=== PATIENT | male | born 1930 | race Caucasian/White ===

== ENCOUNTER 2016-12-26 13:22 | Inpatient (IN) | payer OTHER, MEDICARE ==
[~2016-12-26] VITALS: Ht 167.6 cm; Wt 100.9 kg
[~2016-12-26 13:22] MED LIST: ASPI81TA17 PO; LOVA40TA PO; TRAM50 PO
[2016-12-26 13:44] VITALS: BP 199/84; PULSE 62; PULSE 72; RESP 18; TEMP 98; O2SAT 67; O2SAT 99
[2016-12-26] MEDS ORDERED: SODIUM CHLOR 0.9% 1000 ML INJ 1,000 ML IV ONE (13:58)
[2016-12-26] MEDS ORDERED: SODIUM CHLOR 0.9% 1000 ML INJ 1,000 ML IV SCH ×2 (14:00→15:24)
--- NOTE | 2016-12-26 14:09 | PD ---
HPI Chief Complaint: Neuro Symptoms/ Deficits Time Seen by Provider: 13:42 Travel History International Travel<30 days: No Contact w/Intl Traveler<30days: No Traveled to known affect area: No History of Present Illness HPI 86-year-old male complains of partial vision loss. Patient states that he was reading some articles and started having sudden onset of vision loss on the right side the visual field. Patient states that he started having sweating on the forehead. Patient denies any headache. Patient denies any eye pain. Patient denies any neck pain. Patient denies any chest pain or shortness of breath. Patient denies abdominal pain. Patient denies any focal weakness or numbness of extremity. Patient denies any history of TIA or CVA. Patient has history of hyperlipidemia. Patient also has history of thrombocytosis and chronic myeloproliferative disorder. Patient on aspirin 81 mg daily. Patient states that he took his aspirin today. 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 Patient States that he had left-sided facial weakness which lasted about 6 weeks and subsequently only left eyelid weakness since then. PFSH Past Medical History Hx Anticoagulant Therapy: Yes (BABY ASA DAILY) Cancer: No Cardiovascular Problems: Yes (HTN, CHOL) High Cholesterol: Yes Diabetes: No Diminished Hearing: No Endocrine: No Gastrointestinal Disorders: Yes (UPSET) Genitourinary: No Hepatitis: No Hiatal Hernia: No Hypertension: Yes Immune Disorder: No Musculoskeletal: No Neurologic: Yes (MOSES'S PALSY) Psychiatric: No Reproductive: No Respiratory: No Immunizations Current: No Thyroid Disease: No Past Surgical History Other Surgery: Yes (BACK 1967) Social History Alcohol Use: Yes (2/SCOTCH/day) Tobacco Use: No Substance Use: No Allergies-Medications (Allergen,Severity, Reaction): Coded Allergies: No Known Allergies (Unverified , 12/26/16) Reported Meds & Prescriptions Reported Meds & Active Scripts Active Ultram (Tramadol HCl) 50 Mg Tab 50 Mg PO Q6 PRN Reported Lovastatin 40 Mg Tab 40 Mg PO HS Aspirin EC Low Dose (Aspirin) 81 Mg Tab 81 Mg PO DAILY Review of Systems General / Constitutional: No: Fever Eyes: Positive: Visual changes HENT: No: Headaches Cardiovascular: No: Chest Pain or Discomfort Respiratory: No: Shortness of Breath Gastrointestinal: No: Abdominal Pain Genitourinary: No: Dysuria Musculoskeletal: No: Pain Skin: No Rash Neurologic: No: Weakness Psychiatric: No: Depression Endocrine: No: Polydipsia Hematologic/Lymphatic: No: Easy Bruising Physical Exam Narrative GENERAL: Well-nourished, well-developed patient. SKIN: Focused skin assessment warm/dry. HEAD: Normocephalic. EYES: No scleral icterus. No injection or drainage. Pupils 2 mm equal sluggish reactive. NECK: Supple, trachea midline. No JVD or lymphadenopathy. CARDIOVASCULAR: Regular rate and rhythm without murmurs, gallops, or rubs. RESPIRATORY: Breath sounds equal bilaterally. No accessory muscle use. GASTROINTESTINAL: Abdomen soft, non-tender, nondistended. MUSCULOSKELETAL: No cyanosis, or edema. BACK: Nontender without obvious deformity. No CVA tenderness. Neurologic exam: Patient is awake and alert oriented 3. Patient has homonymous hemianopsia with defect on the right visual field bilaterally. Patient moves all extremity well. No obvious focal neurological deficit. Data Data Last Documented VS Vital Signs Date Time Temp Pulse Resp B/P Pulse Ox O2 Delivery O2 Flow Rate FiO2 12/26/16 14:36 99 Nasal Cannula 2 12/26/16 13:44 98.0 72 18 199/84 Orders Neuro Checks Q2HX12,Q4H (12/26/16 13:58) Nursing Bedside Swallow Assess .ONCE (12/26/16 13:58) Activity Bed Rest (12/26/16 13:58) Diet Npo (12/26/16 Lunch) Prothrombin Time / Inr (Pt) (12/26/16 13:58) Act Partial Throm Time (Ptt) (12/26/16 13:58) Complete Blood Count With Diff (12/26/16 13:58) Basic Metabolic Panel (Bmp) (12/26/16 13:58) Fibrinogen (12/26/16 13:58) Creatine Kinase (Cpk) (12/26/16 13:58) Troponin I (12/26/16 13:58) Ua Includes Microscopic (12/26/16 13:58) Type And Screen (12/26/16 13:58) Ct Brain W/O Iv Contrast(Rout) (12/26/16 ) Chest, Single Ap (12/26/16 ) Electrocardiogram (12/26/16 ) Consult Neurology (12/26/16 13:58) Sodium Chlor 0.9% 1000 Ml Inj (Ns 1000 M (12/26/16 13:58) Blood Glucose (12/26/16 13:58) Ecg Monitoring (12/26/16 13:58) Iv Access Insert/Monitor (12/26/16 13:58) NPO (12/26/16 13:58) Oximetry (12/26/16 13:58) Oxygen Administration (12/26/16 13:58) Resp Oxygen Bret C Titrat 1-4 L (12/26/16 13:58) Sodium Chlor 0.9% 1000 Ml Inj (Ns 1000 M (12/26/16 14:00) Aspirin (Aspirin) (12/26/16 14:30) (Hub Use Only)Inp Phy Cons/Ref (12/26/16 ) Labs Laboratory Tests Test 12/26/16 14:10 White Blood Count 10.4 TH/MM3 Red Blood Count 5.26 MIL/MM3 Hemoglobin 14.4 GM/DL Hematocrit 45.2 % Mean Corpuscular Volume 85.8 FL Mean Corpuscular Hemoglobin 27.5 PG Mean Corpuscular Hemoglobin 32.0 % Concent Red Cell Distribution Width 15.7 % Platelet Count 1023 TH/MM3 Mean Platelet Volume 9.4 FL Neutrophils (%) (Auto) 72.0 % Lymphocytes (%) (Auto) 16.6 % Monocytes (%) (Auto) 7.4 % Eosinophils (%) (Auto) 2.4 % Basophils (%) (Auto) 1.6 % Neutrophils # (Auto) 7.5 TH/MM3 Lymphocytes # (Auto) 1.7 TH/MM3 Monocytes # (Auto) 0.8 TH/MM3 Eosinophils # (Auto) 0.2 TH/MM3 Basophils # (Auto) 0.2 TH/MM3 CBC Comment AUTO DIFF Differential Comment AUTO DIFF CONFIRMED Platelet Estimate HIGH Platelet Morphology Comment NORMAL Prothrombin Time 11.4 SEC Prothromb Time International 1.0 RATIO Ratio Activated Partial 28.5 SEC Thromboplast Time Sodium Level 139 MEQ/L Potassium Level 4.4 MEQ/L Chloride Level 106 MEQ/L Carbon Dioxide Level 22.8 MEQ/L Anion Gap 10 MEQ/L Blood Urea Nitrogen 24 MG/DL Creatinine 1.10 MG/DL Estimat Glomerular Filtration 64 ML/MIN Rate Random Glucose 96 MG/DL Calcium Level 9.0 MG/DL Total Creatine Kinase 96 U/L Troponin I 0.02 NG/ML MDM Medical Decision Making Medical Screen Exam Complete: Yes Emergency Medical Condition: Yes Interpretation(s) Last Impressions Head CT 12/26/16 0000 Signed Impressions: Service Date/Time: Monday, December 26, 2016 13:51 - CONCLUSION: No acute intracranial abnormality demonstrated. Evans Duncan MD 1440 2 PM. EKG shows atrial flutter fibrillation with aberrant conduction and PVCs. Differential Diagnosis Differential diagnosis including TIA, CVA,. Pituitary tumor. Narrative Course 86-year-old male with homonymous hemianopsia. The symptoms started 3-1/2 hour prior coming to the emergency room. I spoke with Dr. Lock, neurologist. Patient's 86-year-old and the symptoms started almost 4 hours ago. Patient is not a candidate for TPA. Aspirin 325 mg by mouth given. Kenn Bustillo MD Dec 26, 2016 14:09
--- NOTE | 2016-12-26 14:15 | RADRPT ---
EXAM DATE/TIME: 12/26/2016 13:51 [facility] COMPARISON: CT BRAIN W/O CONTRAST, August 27, 2014, 11:59. INDICATIONS : Right eye visual disturbance. RADIATION DOSE: 63.07 CTDIvol (mGy) This report was called by Dr. Duncan to Dr. Bustillo at 2: 11 PM MEDICAL HISTORY : None SURGICAL HISTORY : None. ENCOUNTER: Initial ACUITY: 1 day PAIN SCALE: 0/10 LOCATION: Right eye TECHNIQUE: Multiple contiguous axial images were obtained of the head. Using automated exposure control and adj ustment of the mA and/or kV according to patient size, radiation dose was kept as low as reasonably a chievable to obtain optimal diagnostic quality images. DICOM format image data is available electro nically for review and comparison. FINDINGS: CEREBRUM: The ventricles are normal for age. No evidence of midline shift, mass lesion, hemorrhage or acute in farction. No extra-axial fluid collections are seen. POSTERIOR FOSSA: The cerebellum and brainstem are intact. The 4th ventricle is midline. The cerebellopontine angle i s unremarkable. Posterior fossa chronic arachnoid cyst unchanged. EXTRACRANIAL: The visualized portion of the orbits is intact. SKULL: The calvaria is intact. No evidence of skull fracture. CONCLUSION: No acute intracranial abnormality demonstrated. Evans Duncan MD on December 26, 2016 at 14:12 Board Certified Radiologist. This report was verified electronically.
[2016-12-26 14:21] LABS: AUTOMATED NEUTROPHIL # 7.5 TH/MM3 (1.8-7.7); BASOPHIL # 0.2 TH/MM3 (0-0.2); BASOPHIL % 1.6 % (0.0-2.0); EOSINOPHIL # 0.2 TH/MM3 (0-0.4); EOSINOPHIL % 2.4 % (0.0-4.0); HEMATOCRIT 45.2 % (39.0-51.0); HEMO FLAGS AUTO DIFF; LYMPH % 16.6 % (9.0-44.0); LYMPHOCYTE # 1.7 TH/MM3 (1.0-4.8); MEAN CELL VOLUME 85.8 FL (80.0-100.0); MEAN CORPUSCULAR HEMOGLOBIN 27.5 PG (27.0-34.0); MONO % 7.4 % (0.0-8.0); PLATELET COUNT 1023 TH/MM3 (150-450); RED BLOOD COUNT 5.26 MIL/MM3 (4.50-5.90); RED CELL DISTRIBUTION WIDTH 15.7 % (11.6-17.2); WHITE BLOOD COUNT 10.4 TH/MM3 (4.0-11.0)
[2016-12-26 14:23] LABS: POTASSIUM 4.4 MEQ/L (3.5-5.1)
[2016-12-26 14:27] LABS: BICARBONATE 22.8 MEQ/L (21.0-32.0)
[2016-12-26 14:30] LABS: APTT (PATIENT) 28.5 SEC (24.3-30.1); PROTHROMBIN TIME - PATIENT 11.4 SEC (9.8-11.6)
[2016-12-26] MEDS ORDERED: ASPIRIN 325 MG TAB PO ONE (14:30)
[2016-12-26 14:40] LABS: PLATELET ESTIMATE SMEAR HIGH (NORMAL)
[2016-12-26 14:41] LABS: PLATELET MORPHOLOGY NORMAL (NORMAL); SCAN/DIFF AUTO DIFF CONFIRMED
[2016-12-26 14:44] VITALS: BP 183/81; PULSE 80; RESP 18; O2SAT 100
[2016-12-26] MEDS ORDERED: [UNRECOGNIZED DRUG - REMARK] PO (14:46)
[2016-12-26] MEDS ORDERED: LOVA40TA PO (14:46)
[2016-12-26] MEDS ORDERED: ASPI81CH CHEW (14:46)
--- NOTE | 2016-12-26 14:54 | RADRPT ---
EXAM DATE/TIME: 12/26/2016 14:05 [facility] COMPARISON: No previous studies available for comparison. INDICATIONS : Stroke alert. MEDICAL HISTORY : Moses's palsy. SURGICAL HISTORY : Spine surgery, unspecified. ENCOUNTER: Initial ACUITY: 1 day PAIN SCORE: 0/10 LOCATION: Chest. FINDINGS: No infiltrate, effusion or pneumothorax seen. Heart size upper limits of normal. Thoracic aorta is mi ldly tortuous. CONCLUSION: No evidence of acute cardiopulmonary disease. Evans Duncan MD on December 26, 2016 at 14:52 Board Certified Radiologist. This report was verified electronically.
[2016-12-26] MEDS ORDERED: HEPARIN-D5W INJ 250 ML IV SCH ×2 (15:00→15:30)
[2016-12-26 15:28] LABS: BLOOD, URINE NEG (NEG); GLUCOSE,URINE NEG (NEG); KETONE, URINE NEG (NEG); NITRITE,URINE NEG (NEG); PH, URINE 5.5 (5.0-8.5)
[2016-12-26] MEDS ORDERED: GLUCAGON 1 MG/ML VIAL OTHER PRN ×2 (15:30→21:15)
[2016-12-26] MEDS ORDERED: SODIUM CHLORIDE 0.9% FLUSH 5 ML FLUSH IV FLUSH PRN ×2 (15:30→21:15)
[2016-12-26] MEDS ORDERED: DEXTROSE 50% IN WATER 50 ML VIAL(D50) IV PUSH PRN ×2 (15:30→21:15)
[2016-12-26] MEDS ORDERED: ENALAPRILAT 1.25 MG/ML VIAL IV PRN (15:30)
[2016-12-26 15:32] LABS: METHOD OF COLLECTION CATH; URINE COLOR YELLOW (YELLW/STRAW)
[2016-12-26 15:33] LABS: WBC, URINE 0-2 /hpf (0-5)
--- NOTE | 2016-12-26 15:49 | HHI.HP ---
[facility] Service [place] [facility] Primary Care Physician [facility] Admission Diagnosis acute CVA Diagnoses: Travel History International Travel<30 Days: No Contact w/Intl Traveler <30 Da: No Traveled to Known Affected Are: No History of Present Illness 86-year-old male with past medical history of gastritis/GERD, chronic myeloproliferative disorder, thrombocytosis and hypertension presented to the emergency room as a stroke alert. Patient tells me that this morning he was reading when suddenly he started having vision problems. He was a little diaphoretic but then that resolved. He states when he was looking straight ahead he noticed that his peripheral vision was gone. He tried to look straight at his however he could only see her left eye. He denied any chest pain, shortness of breath, nausea or vomiting. He denies any weakness in his arm or legs. 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 Patient has never had a stroke before. When asked if he has a history of atrial fibrillation, patient denies. Patient tells me that he sees Dr. Dr. Voss for the thrombocytosis and he is only on aspirin for it. Review of Systems Except as stated in HPI: all other systems reviewed are Neg Past Family Social History Past Medical History gastritis/GERD, chronic myeloproliferative disorder, thrombocytosis and hypertension Past Surgical History Bone marrow biopsy Reported Medications Reported Meds & Active Scripts Active Reported [b/p pill] 1 Tab PO HS Lovastatin 40 Mg Tab 40 Mg PO DAILY Aspirin 81 Mg Chew 81 Mg CHEW DAILY Allergies: Coded Allergies: No Known Allergies (Unverified , 12/26/16) Family History Father of TB at age 55, mother had a stroke in her 70s Social History He denies any smoking history. He drinks 2 shots of scotch a day for the past 60 years. He denies any illegal drug use Physical Exam Vital Signs Vital Signs Date Time Temp Pulse Resp B/P Pulse Ox O2 Delivery O2 Flow Rate FiO2 12/26/16 14:44 80 18 183/81 100 Nasal Cannula 2 12/26/16 14:36 99 Nasal Cannula 2 12/26/16 13:44 99 Nasal Cannula 2 12/26/16 13:44 99 Nasal Cannula 2 12/26/16 13:44 98.0 72 18 199/84 99 Physical Exam GENERAL: This is a well-nourished, well-developed patient, laying flat in bed SKIN: Tanned skin. Cool and dry. HEAD: Atraumatic. Normocephalic. No temporal or scalp tenderness. EYES: Pupils equal round and reactive. Extraocular motions intact. No scleral icterus. No injection or drainage. Peripheral vision on the right eye not present, he has had difficulty seeing peripherally with his left eye however he is able to see partially. Patient is able to see me when looking at me directly ENT: Nose without drainage. Airway patent. NECK: Trachea midline. No JVD or lymphadenopathy. Supple, nontender, no meningeal signs. CARDIOVASCULAR: Irregularly irregular however controlled. No murmurs RESPIRATORY: Clear to auscultation. Breath sounds equal bilaterally. No wheezes GASTROINTESTINAL: Abdomen soft, non-tender, nondistended. No palpable masses. No guarding. MUSCULOSKELETAL: Extremities without edema. No calf tenderness. Negative Homans sign bilaterally. NEUROLOGICAL: Awake and alert. See exam above. Motor and sensory grossly within normal limits. Five out of 5 muscle strength in all muscle groups. Normal speech. Laboratory Laboratory Tests Test 12/26/16 14:10 White Blood Count 10.4 Red Blood Count 5.26 Hemoglobin 14.4 Hematocrit 45.2 Mean Corpuscular Volume 85.8 Mean Corpuscular Hemoglobin 27.5 Mean Corpuscular Hemoglobin 32.0 Concent Red Cell Distribution Width 15.7 Platelet Count 1023 Mean Platelet Volume 9.4 Neutrophils (%) (Auto) 72.0 Lymphocytes (%) (Auto) 16.6 Monocytes (%) (Auto) 7.4 Eosinophils (%) (Auto) 2.4 Basophils (%) (Auto) 1.6 Neutrophils # (Auto) 7.5 Lymphocytes # (Auto) 1.7 Monocytes # (Auto) 0.8 Eosinophils # (Auto) 0.2 Basophils # (Auto) 0.2 CBC Comment AUTO DIFF Differential Comment AUTO DIFF CONFIRMED Platelet Estimate HIGH Platelet Morphology Comment NORMAL Prothrombin Time 11.4 Prothromb Time International 1.0 Ratio Activated Partial 28.5 Thromboplast Time Fibrinogen 383 Sodium Level 139 Potassium Level 4.4 Chloride Level 106 Carbon Dioxide Level 22.8 Anion Gap 10 Blood Urea Nitrogen 24 Creatinine 1.10 Estimat Glomerular Filtration 64 Rate Random Glucose 96 Calcium Level 9.0 Total Creatine Kinase 96 Troponin I 0.02 Result Diagram: 12/26/16 1410 12/26/16 1410 Imaging Last Impressions Head CT 12/26/16 0000 Signed Impressions: Service Date/Time: Monday, December 26, 2016 13:51 - CONCLUSION: No acute intracranial abnormality demonstrated. Evans Duncan MD Chest X-Ray 12/26/16 0000 Signed Impressions: Service Date/Time: Monday, December 26, 2016 14:05 - CONCLUSION: No evidence of acute cardiopulmonary disease. Evans Duncan MD Assessment and Plan Assessment and Plan Stroke alert: Patient presented as a stroke alert with bilateral vision loss peripherally which occurred earlier today. CT of the head shows no acute intracranial abnormalities. Discussed with Dr. Bustillo, ER physician, patient missed the window for TPA. He spoke with neurology and they recommended heparin drip with no bolus. MRA/MRI/ultrasound of the carotids have been ordered. 2-D echo also ordered as well. Patient with new onset atrial fibrillation currently rate controlled. Continue aspirin. Neurology consult in place. Patient to remain with head of bed flat for the next 24 hours. Allow permissive hypertension. will put Vasotec when necessary for blood pressure is very elevated at 220/120. Check Hemoccults. New onset atrial fibrillation. EKG shows atrial fibrillation. This is new for patient. Will trend cardiac enzymes. Initial one is negative. TELE. cardiology consult. Thrombocytosis: on ASA at home. initial platelet count is 1023. I did discuss the case w Dr. Donovan, biomedical field service engineer, he will evaluate the patient and will make further recs. Pt is known to Dr. Voss DVT proph: heparin gtt Code Status full Discussed Condition With ER physician, patient and Geno Donis MD Dec 26, 2016 15:49
[2016-12-26 15:57] VITALS: BP 169/70; PULSE 70; RESP 18; O2SAT 98
[2016-12-26] MEDS: INSULIN ASPART SUPPLEMENTAL SCALE SQ SCH ×2 (16:00→20:25)
--- NOTE | 2016-12-26 16:51 | MB ---
cc: ROMEO HOPKINS MD DATE OF CONSULTATION 12/26/16 REASON FOR CONSULTATION CVA with newly discovered atrial fibrillation. HISTORY OF PRESENT ILLNESS The patient is a very pleasant 86-year-old gentleman with no prior cardiac history who presented after noticing his vision had changed this morning. He was also slightly diaphoretic. He presented to the emergency department and was found to be in atrial fibrillation. He was started on a heparin drip and admitted for further workup. His initial head CT was normal but his MRI is pending. At the time of our discussion he is still having mostly left-sided visual changes. He denies chest pain but does note that over the last year or so he has been progressively short of breath with walking, though he says he did bike 10 miles without any shortness of breath at all. PAST MEDICAL HISTORY Gastritis. GERD. Myeloproliferative disorder, hypertension. CURRENT MEDICATIONS 1. Heparin drip. 2. Aspirin. ALLERGIES NO KNOWN DRUG ALLERGIES. PHYSICAL EXAMINATION VITAL SIGNS: Afebrile, pulse 70, respiratory rate 18, BP 169/70 down from 199/84. Satting 98% ___. GENERAL: Pleasant, well-appearing gentleman in no distress. NECK: No JVD. LUNGS: Clear to auscultation bilaterally. CARDIOVASCULAR: Irregular irregular rhythm with a regular rate. No murmurs appreciated. ABDOMEN: Benign. EXTREMITIES: No edema. LABORATORY DATA White count 10.4, hematocrit 45.2, platelets 1023. Sodium 139, potassium 4.4, chloride 106, bicarb 22.8, BUN 24, creatinine 1.1, glucose 96, INR is 1.0, PTT is 28. CARDIOLOGY STUDIES EKG showed rate-controlled atrial fibrillation with PVCs and nonspecific ST changes. IMPRESSION Likely TIA/CVA, though his head CT is normal I suspect he will end up having a small stroke on his MRI. Regardless, he requires anticoagulation from a cardiac perspective for his atrial fibrillation. He is currently auto rate-controlled but we will watch his rates on telemetry while he is in the hospital. An echocardiogram has been ordered. I will defer the choice of oral anticoagulant to the neurologist but I am fine with either warfarin or a novel anticoagulant such as Eliquis. Further recommendations will based on his telemetry and his echocardiogram and it is possible he could be discharged home tomorrow depending on these reports Further recommendations will be based on his clinic course. Thank you again for the opportunity to participate in this patient's care. MD KENNY Esposito/ADELA /4:26 PM /4:33 PM
[2016-12-26 17:42] VITALS: O2SAT 98
--- NOTE | 2016-12-26 18:35 | RADRPT ---
EXAM DATE/TIME: 12/26/2016 18:21 [facility] COMPARISON: No previous studies available for comparison. INDICATIONS : Visual disturbances. MEDICAL HISTORY : Hypercholesterolemia. Hypertension. SURGICAL HISTORY : Fusion, lumbar. ENCOUNTER: Initial ACUITY: 1 day PAIN SCORE: 0/10 LOCATION: cranial Please note a normal MRA of the brain does not entirely exclude the possibility of a small aneurysm, nor the possibility of distal intracranial vessel disease. TECHNIQUE: 3D time of flight MRA was performed. Source images, multiplanar STS MIP, and 3D volume MIP reconstru ctions were reviewed. FINDINGS: There is excellent visualization of the major intracranial arteries out to the second-order branch ve ssels. There is no evidence for aneurysm, vessel truncation or stenosis, and no evidence for vascula r malformation. CONCLUSION: Intracranial MRA within normal limits. Evans Duncan MD on December 26, 2016 at 18:32 Board Certified Radiologist. This report was verified electronically.
--- NOTE | 2016-12-26 18:39 | RADRPT ---
EXAM DATE/TIME: 12/26/2016 18:21 [facility] COMPARISON: MRA BRAIN W/O CONTRAST, December 26, 2016, 18:21. CT BRAIN W/O CONTRAST, December 26, 2016, 13:51. MRI BRAIN W & W/O CONTRAST, August 27, 2014, 15:33. CT BRAIN W/O CONTRAST, August 27, 2014, 11:59. INDICATIONS : Visual disturbances. MEDICAL HISTORY : Hypercholesterolemia. Hypertension. SURGICAL HISTORY : Fusion, lumbar. ENCOUNTER: Initial ACUITY: 1 day PAIN SCORE: 0/10 LOCATION: cranial TECHNIQUE: Multiplanar, multisequence MRI of the brain was performed without contrast. FINDINGS: CEREBRUM: The ventricles are normal for age. No evidence of midline shift, mass lesion, hemorrhage or acute in farction. No extraaxial fluid collections are seen. The pituitary gland and suprasellar cistern are normal in configuration. WHITE MATTER: Moderate severity chronic and symmetric small vessel ischemic changes, modestly worsened since 2014. POSTERIOR FOSSA: The cerebellum and brainstem are intact. The 4th ventricle is midline. The cerebellopontine angle is unremarkable. The cerebellar tonsils are normal in position. DIFFUSION IMAGING: There is an approximately 19 x 32 mm area of restricted diffusion of the left occipital lobe. EXTRACRANIAL: The visualized portions of the orbits and paranasal sinuses are unremarkable. CONCLUSION: 1. 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 No hemorrhage, edema or mass effect. 2. No other acute abnormalities are demonstrated. Moderate severity chronic white matter changes. Evans Duncan MD on December 26, 2016 at 18:35 Board Certified Radiologist. This report was verified electronically.
--- NOTE | 2016-12-26 19:12 | RADRPT ---
EXAM DATE/TIME: 12/26/2016 18:21 [facility] COMPARISON: No previous studies available for comparison. INDICATIONS : Visual disturbances. CONTRAST: 20 cc Omniscan (gadodiamide) IV MEDICAL HISTORY : Hypercholesterolemia. Hypertension. SURGICAL HISTORY : Fusion, lumbar. ENCOUNTER: Initial ACUITY: 1 day PAIN SCORE: 0/10 LOCATION: cranial Percent stenosis is calculated using the diameter of the stenotic region over the diameter of the nor mal distal internal carotid artery. TECHNIQUE: Bolus infused MRA of the extracranial circulation was performed using a neurovascular coil. Post pro cessing was performed including rotating subvolume maximum intensity projections of each carotid jammie ry, rotating full volume maximum intensity projections of both carotid arteries, sagittal and coronal sliding thin slab reformations of each carotid artery, and left oblique sliding thin slab reformatio n through the aortic arch to include the origin of the arch branch vessels. FINDINGS: The great vessel origins are patent. Both common carotid arteries are patent. The left internal carot id artery is patent. There is some atherosclerotic irregularity proximal right internal carotid arter y with a mild stenosis. Mid and distal internal carotid arteries are patent. There is atherosclerotic irregularity of the distal vertebral arteries. Basal artery appears patent. CONCLUSION: 1. Mild stenosis proximal right internal carotid artery. No hemodynamically significant stenosis iden tified. 2. Mild stenosis of the distal vertebral arteries bilaterally. 3. Both common carotid arteries and left internal carotid artery are patent. Gilberto Blankenship MD on December 26, 2016 at 19:07 Board Certified Radiologist. This report was verified electronically.
--- NOTE | 2016-12-26 19:15 | MB ---
cc: ROSARIO PAT MD DATE OF CONSULTATION 12/26/[address] Donis REASON FOR CONSULTATION Hematology is consulted to render opinion regarding patient with chronic myeloproliferative disorder admitted with a stroke. HISTORY OF PRESENT ILLNESS The patient is a very pleasant 86-year-old male brought in as a stroke alert. This morning he was reading a book and he noticed mild sweating on his forehead and he lost his peripheral vision. When I asked him, he stated he can only see half of my face clearly and the other is half is blurry, but when he concentrate then he could see better. He denies any headache. Denies any focal weakness or numbness. He denies any slurred speech. His noticed that the right eye was a little droopy this morning. He has no chest pain, palpitation. He has no nausea, vomiting, denies any bleeding, bruising. He has had a early satiety for the last one year. He has chronic abdominal discomfort for more than five years. He denies any bleeding, but he bruises easily. PAST MEDICAL HISTORY 1. 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 Gastritis 3. Gastroesophageal reflux disease 4. Hypertension, 5. Hyperlipidemia. 6. Chronic abdominal pain. PAST SURGICAL HISTORY 1. Bone marrow biopsy March 2015 2. Back surgery in 1967. FAMILY HISTORY Two daughters, both healthy. SOCIAL HISTORY No hematologic disorder. FAMILY HISTORY AND SOCIAL HISTORY Denies tobacco use. He drinks two shots of scotch daily. ALLERGIES No known drug allergies. MEDICATIONS Current, 1. Aspirin. 2. Heparin drip. REVIEW OF SYSTEMS CONSTITUTIONAL: Denies any weight loss. EYES: Denies any blurred vision, double vision. ENT: Denies any mouth sores or voice changes. CARDIOVASCULAR: Denies any chest pressure, palpitation RESPIRATORY: Denies any shortness of breath or cough. GI: As above. : Denied dysuria, hematuria. MUSCULOSKELETAL: Negative. HEMATOLOGIC: As above. ENDOCRINE: Negative DERMATOLOGY: Negative. PSYCHIATRIC: negative NEUROLOGIC: As above. PHYSICAL EXAMINATION VITAL SIGNS: Temperature 98, blood pressure 169/70, O2 saturation 98% room air. GENERAL: He is alert and oriented x3 in no acute distress. HEENT: Atraumatic, normocephalic. Pupils equal, round and reactive to light. Extraocular muscles intact. No scleral icterus. Oropharynx moist mucosa. No lesion or thrush. No mucositis. NECK: No thyromegaly. No palpable masses. LYMPHATCS: No palpable cervical, clavicular, axillary or inguinal lymph node CARDIOVASCULAR: Irregular S1-S2, no murmur. LUNGS: Clear to auscultation bilaterally. ABDOMEN: Soft, nontender, difficult to palpate the spleen. EXTREMITIES: No cyanosis, clubbing, no edema. SKIN: No rash or petechiae. NEUROLOGIC: Nonfocal. LABORATORY DATA Reviewed ASSESSMENT 1. Chronic myeloproliferative disorder. He saw Dr. Voss the end of 2014. At that time, he had a bone marrow biopsy which showed a hypercellular bone marrow with feature of chronic myelopreoliferative disorder. TAMIKO-2 mutation and MPL mutation negative. 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 At that time, his platelet count was around 700,000. Dr. Voss suggested that the patient start hydroxyurea, but the patient did not want to start at that time because he was going on a cruise. However, he never followed up. He was just taking baby aspirin. He presented today with platelet count of more than 1,000,000. I think that this might be one of the factors that caused the stroke. His white cell and hemoglobin are normal. He also has symptom of early satiety for one year, but I could not palpate his spleen. I told him with the essentially thrombocythemia and such high platelet count he has a high risk of thromboembolic event as well as bleeding if he has acquired von Willebrand disease. At this point, the patient is already on heparin drip. I am going to start him on hydroxyurea to try to bring his platelet count lower. I explained the potential side effect to the patient and his . He agrees to proceed. They had some questions today which I answered. 2. Acute stroke. He lost his peripheral vision acutely this morning. He has no other symptom. A CT of the head is negative. Further radiologic study is pending. He is now on heparin drip. He is awaiting neurology evaluation. I think he would need anticoagulation, especially as he has high risk of recurrent thromboembolic event with the chronic myeloproliferative disorder. He could be bridged to Coumadin or new oral anticoagulant once he is cleared by neurology. 3. Chronic abdominal pain. He has history of gastritis and gastroesophageal reflux disease. He said this has been going on for more than five years. He stated he had a CT scan done at the [place] last year which was unremarkable. I told him that he will need GI workup, but this can be done as outpatient. 4. Hypertension. PLAN 1. Extensive discussion with the patient and his . 2. Continue heparin drip and can bridge to Coumadin or new oral anticoagulant once he is cleared by neurology. 3. Start him on hydroxyurea. 4. Monitor CBC. 5. Recommend GI workup, but this can be done as outpatient. 6. Get ultrasound of the abdomen to evaluate spleen given his symptoms. 7. Case discussed with Dr. Donis. Thank you, Dr. Donis, for asking me to see this patient. MD ALDO Pacheco/ /5:27 PM /6:47 PM LUCINDA
[2016-12-26] MEDS ORDERED: GADODIAMIDE PF 287 MG/ML 20 ML VIAL (for RAD MRI) IV ONE (19:33)
[2016-12-26] MEDS: HYDROXYUREA 500 MG CAP PO SCH (19:58)
[2016-12-26 20:00] VITALS: BP 136/78; PULSE 56; PULSE 81; RESP 20; TEMP 96.4; O2SAT 95
[2016-12-26] MEDS ORDERED: SODIUM CHLORIDE 0.9% FLUSH 5 ML FLUSH IV FLUSH SCH (21:00)
--- NOTE | 2016-12-26 21:23 | MB ---
cc: YANETH MACHADO DATE OF CONSULTATION 12/26/16 REASON FOR CONSULTATION Stroke. HISTORY OF PRESENT ILLNESS Mr. Mcghee is an 86-year-old man who around 10 o'clock this morning noticed sudden onset difficulty seeing off to the right side. He had no other neurologic symptoms. No focal weakness or numbness. He presented to the ER. At the time of his presentation, however, he was over 4 hours beyond the time of onset. I discussed the case with Dr. Bustillo. Given his age felt that he was beyond the time limit for TPA so he was not a candidate for IV TPA. He was found to be in atrial fibrillation, atrial flutter in the ER. He has since been started on IV heparin. PAST MEDICAL HISTORY History of thrombocytosis. He has a history of [place] palsy in the past. No history of TIA. He does have a history of hyperlipidemia. Chronic myeloproliferative disorder. MEDICATIONS At home he takes. 1. Aspirin 81 milligrams daily. 2. Ultram. 3. Lovastatin. ALLERGIES NO KNOWN DRUG ALLERGIES. SOCIAL HISTORY He drinks alcohol daily. Denies tobacco use. NEUROLOGIC EXAMINATION VITAL SIGNS: Blood pressure 169/70, pulse is 70, respirations 18, temperature 98 degrees. NEURO: Higher cortical function, normal cranial nerves. 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 Other cranial nerves are normal. Motor examination demonstrates normal strength and tone of all groups. There is no drift. Fine motor skill normal. Reflexes are symmetric. IMAGING STUDIES CT scan of the brain no acute change identified. MRI brain small acute left occipital lobe stroke. No hemorrhage is seen. There is no edema. No mass effect. MRA brain is normal. Neck MRA mild stenosis of the right internal carotid artery. Not hemodynamically significant. Mild stenosis of the distal vertebral arteries bilaterally. Both common carotids and left internal carotid are patent. LABORATORY DATA White count 10,400, hemoglobin 14.4, hematocrit 45%, platelets 1,023,000. PT 11.4, INR 1, APTT 28.5, fibrinogen 383. Sodium 139, potassium 4.4, chloride 106, CO2 22.8, BUN 24, creatinine 1.1, GFR 64. Troponin 0.04 IMPRESSION Left occipital lobe stroke, atrial fibrillation, thrombocytosis. RECOMMENDATIONS Continue anticoagulation with heparin. Would recommend bridging to Coumadin when stable. I agree with starting hydroxyurea for the high platelet count. MD GISSEL Maria /9:01 PM /9:06 PM
[2016-12-26] MEDS: SODIUM CHLOR 0.9% 1000 ML INJ 1,000 ML IV SCH (21:39)
[2016-12-26 23:25] VITALS: O2SAT 94
[2016-12-27] VITALS (8 sets, daily range): BP systolic 128–158; BP diastolic 73–80; PULSE 62–81; RESP 17–20; TEMP 96.9–98.9; O2SAT 92–99
[2016-12-27 02:17] LABS: APTT (PATIENT) 44.7 SEC (24.3-30.1)
[2016-12-27] MEDS: INSULIN ASPART SUPPLEMENTAL SCALE SQ SCH ×4 (06:15→20:33)
[2016-12-27 07:19] LABS: AUTOMATED NEUTROPHIL # 8.7 TH/MM3 (1.8-7.7); BASOPHIL % 0.3 % (0.0-2.0); EOSINOPHIL # 0.2 TH/MM3 (0-0.4); EOSINOPHIL % 1.4 % (0.0-4.0); HEMATOCRIT 43.6 % (39.0-51.0); LYMPH % 12.1 % (9.0-44.0); LYMPHOCYTE # 1.4 TH/MM3 (1.0-4.8); MEAN CELL VOLUME 85.1 FL (80.0-100.0); MEAN CORPUSCULAR HEMOGLOBIN 27.8 PG (27.0-34.0); MEAN CORPUSCULAR HGB CONC 32.6 % (32.0-36.0); MONO % 7.6 % (0.0-8.0); NEUT % 78.6 % (16.0-70.0); PLATELET COUNT 912 TH/MM3 (150-450); RED BLOOD COUNT 5.12 MIL/MM3 (4.50-5.90); RED CELL DISTRIBUTION WIDTH 15.1 % (11.6-17.2); WHITE BLOOD COUNT 11.2 TH/MM3 (4.0-11.0)
[2016-12-27 07:25] LABS: HEMO FLAGS AUTO DIFF
[2016-12-27 08:03] LABS: PLATELET ESTIMATE SMEAR HIGH (NORMAL); PLATELET MORPHOLOGY NORMAL (NORMAL); SCAN/DIFF AUTO DIFF CONFIRMED
[2016-12-27] MEDS: SODIUM CHLORIDE 0.9% FLUSH 5 ML FLUSH IV FLUSH SCH ×2 (09:00→20:38)
[2016-12-27] MEDS: HYDROXYUREA 500 MG CAP PO SCH (09:00)
[2016-12-27] MEDS: ASPIRIN 325 MG TAB PO SCH ×2 (09:04→09:32)
--- NOTE | 2016-12-27 09:50 | HHI.PR ---
Subjective Remarks Written by Edmund Balbuena, acting as scribe for Dr. Donis on 12/27/16 at 09: 41. Patient feels well. He believes that his vision is returning slowly. hoping to go home today. denies any CP/SOB/N/V Objective Vitals Vital Signs Date Time Temp Pulse Resp B/P Pulse Ox O2 Delivery O2 Flow Rate FiO2 12/27/16 08:00 97.9 79 18 134/79 96 12/27/16 07:33 95 21 12/27/16 04:00 96.9 63 20 140/78 94 12/27/16 00:00 98.0 76 20 158/76 94 12/26/16 23:25 94 21 12/26/16 20:00 56 12/26/16 20:00 96.4 81 20 136/78 95 Automatic Cuff 12/26/16 17:42 98 21 12/26/16 15:57 70 18 169/70 98 Room Air 12/26/16 14:44 80 18 183/81 100 Nasal Cannula 2 12/26/16 14:36 99 Nasal Cannula 2 12/26/16 13:44 99 Nasal Cannula 2 12/26/16 13:44 99 Nasal Cannula 2 12/26/16 13:44 98.0 72 18 199/84 99 I/O 12/26/16 12/26/16 12/26/16 12/27/16 12/27/16 12/27/16 07:00 15:00 23:00 07:00 15:00 23:00 Intake Total 304 ml 0 ml Output Total 600 ml 600 ml Balance -296 ml -600 ml Intake Oral 120 ml 0 ml IV Total 184 ml Output Urine Total 600 ml 600 ml # Voids 1 4 # Bowel Movements 0 0 Result Diagram: 12/27/16 0555 12/26/16 1410 Imaging Last Impressions Neck Magnetic Resonance Angiography 12/26/16 1509 Signed Impressions: Service Date/Time: Monday, December 26, 2016 18:21 - CONCLUSION: 1. Mild stenosis proximal right internal carotid artery. No hemodynamically significant stenosis identified. 2. Mild stenosis of the distal vertebral arteries bilaterally. 3. Both common carotid arteries and left internal carotid artery are patent. Gilberto Blankenship MD Head Magnetic Resonance Angiography 12/26/16 1509 Signed Impressions: Service Date/Time: Monday, December 26, 2016 18:21 - CONCLUSION: Intracranial MRA within normal limits. Evans Duncan MD Brain MRI 12/26/16 1509 Signed Impressions: Service Date/Time: Monday, December 26, 2016 18:21 - CONCLUSION: 1. 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 No hemorrhage, edema or mass effect. 2. No other acute abnormalities are demonstrated. Moderate severity chronic white matter changes. Evans Duncan MD Head CT 12/26/16 0000 Signed Impressions: Service Date/Time: Monday, December 26, 2016 13:51 - CONCLUSION: No acute intracranial abnormality demonstrated. Evans Duncan MD Chest X-Ray 12/26/16 0000 Signed Impressions: Service Date/Time: Monday, December 26, 2016 14:05 - CONCLUSION: No evidence of acute cardiopulmonary disease. Evans Duncan MD Objective Remarks GENERAL: This is a well-nourished, well-developed patient, laying flat in bed SKIN: Tanned skin. Cool and dry. EYES: Extraocular motions intact. No scleral icterus. No injection or drainage. Peripheral vision on the right eye improving, is able to discern how many fingers is being held up during exam at least 70% of the time. Left eye is able to see peripherally and is also able discern how many fingers being held up at least 90% of the time. Patient is able to see when looking straight at object ENT: Nose without drainage. Airway patent. NECK: Trachea midline. CARDIOVASCULAR: Irregularly irregular however controlled. No murmurs RESPIRATORY: Clear to auscultation. Breath sounds equal bilaterally. No wheezes GASTROINTESTINAL: Abdomen soft, non-tender, nondistended. MUSCULOSKELETAL: Extremities without edema. No calf tenderness. Negative Homans sign bilaterally. NEUROLOGICAL: Awake and alert. See exam above. Motor and sensory grossly within normal limits. Moving all extremities. Normal speech. Urinary Catheter: No Vascular Central Line Catheter: No A/P Assessment and Plan Stroke alert: Patient presented as a stroke alert with bilateral vision loss peripherally which occurred earlier today. CT of the head shows no acute intracranial abnormalities. Discussed with Dr. Bustillo, ER physician, patient missed the window for TPA. Patient continues on heparin and aspirin for anticoagulation. MRI does indicate small acute infarct in the left occipital lobe, no hemorrhage, edema or mass effect. MRA of the head and neck are without any acute abnormalities. Awaiting echocardiogram. Neurology has evaluated patient and recommending Coumadin for anticoagulation. Will discuss with neurology to see when Coumadin can be started. Patient still had a bed flat, permissive hypertension until cleared by neurology. PT/OT/ST evaluations. Awaiting lipid panel. Discussed all the results thus far and treatment plan with patient and at bedside New onset atrial fibrillation. EKG shows atrial fibrillation. This is new for patient. Cardiac enzymes do not indicate any acute abnormality. Continue telemetry. Cardiology Dr. Pelaez has evaluated the patient and recommending anticoagulation per neurology Thrombocytosis: on ASA at home. initial platelet count is 1023-->912. Case was discussed with Dr. Donovan, hypo dipper, he evaluated the patient and recommended starting Hydrea for the platelet count. Recommending follow-up with Dr. Voss in outpatient setting. abdominal u/s ordered for assessment of spleen DVT proph: heparin gtt Discharge Planning Discharge planning once patient is anticoagulated either during this stay in the hospital or arranging outpatient management with the [facility] CM assisting, if pt doesn't qualify for coumadin clinic at [facility], and if PT feels that pt would benefit from rehab, his coumadin could be managed there. This note was transcribed by consuelo Balbuena. I, Dr. Geno Donis personally performed the history, physical exam, and medical decision making; and confirmed the accuracy of the information in the transcribed note. Authenticated by Dr. Geno Donis on 12/27/16 at 09:41. Update: start coumadin today per neuro. start low dose lipitor to keep LDL<70. Edmund Balbuena Dec 27, 2016 09:49 Geno Donis MD Dec 27, 2016 11:54
[2016-12-27 11:00] LABS: HDL CHOLESTEROL 57.3 MG/DL (40.0-60.0); LDL CHOLESTEROL 76 MG/DL (0-99)
[2016-12-27] MEDS: SODIUM CHLOR 0.9% 1000 ML INJ 1,000 ML IV SCH (11:23)
[2016-12-27 13:09] LABS: HEMOGLOBIN A1a 1.3 %; HEMOGLOBIN A1b 1.6 %; HEMOGLOBIN Ao 84.3 %; HEMOGLOBIN LA1C 1.7 %; HEMOGLOBIN P3 5.8 %
[2016-12-27 13:16] LABS: HEMOGLOBIN A1a 1.4 %; HEMOGLOBIN A1b 1.7 %; HEMOGLOBIN Ao 83.7 %; HEMOGLOBIN LA1C 2.2 %
--- NOTE | 2016-12-27 15:40 | PD.CARD.PN ---
Subjective Subjective Remarks Asymptomatic, in rate controlled afib Objective Medications Administered Medications Medications (Trade) Dose Ordered Sig/Laney Route PRN Reason Start Time Stop Time Status Last Admin Dose Admin Aspirin (Aspirin) 325 mg DAILY PO 12/27/16 09:00 12/27/16 09:32 Hydroxyurea (Hydrea) 500 mg DAILY PO 12/26/16 18:00 12/26/16 19:58 IV Flush 2 ml 2 ml BID IV FLUSH 12/27/16 09:00 12/27/16 09:00 Sodium Chloride (NS 1000 ml Inj) 1,000 ml @ 70 mls/hr [id number] IV 12/26/16 21:05 12/26/16 21:39 Vital Signs / I&O Vital Signs Date Time Temp Pulse Resp B/P Pulse Ox O2 Delivery O2 Flow Rate FiO2 12/27/16 12:00 97.7 81 17 128/77 95 12/27/16 08:00 97.9 79 18 134/79 96 12/27/16 07:33 95 21 12/27/16 04:00 96.9 63 20 140/78 94 12/27/16 00:00 98.0 76 20 158/76 94 12/26/16 23:25 94 21 12/26/16 20:00 56 12/26/16 20:00 96.4 81 20 136/78 95 Automatic Cuff 12/26/16 17:42 98 21 12/26/16 15:57 70 18 169/70 98 Room Air I/O 12/26/16 12/26/16 12/26/16 12/27/16 12/27/16 12/27/16 07:00 15:00 23:00 07:00 15:00 23:00 Intake Total 304 ml 0 ml Output Total 600 ml 600 ml 600 ml Balance -296 ml -600 ml -600 ml Intake Oral 120 ml 0 ml IV Total 184 ml Output Urine Total 600 ml 600 ml 600 ml # Voids 1 4 # Bowel Movements 0 0 Physical Exam GENERAL: This is a well-nourished, well-developed patient, in no apparent distress. CARDIOVASCULAR: Regular rate and irregular rhythm without murmurs, gallops, or rubs. RESPIRATORY: Clear to auscultation. Breath sounds equal bilaterally. No wheezes , rales, or rhonchi. GASTROINTESTINAL: Abdomen soft, non-tender, nondistended. Normal, active bowel sounds MUSCULOSKELETAL: Extremities without clubbing, cyanosis, or edema. NEURO: Alert & Oriented x4 to person, place, time, situation. Moves all ext x4 Laboratory Laboratory Tests Test 12/26/16 12/27/16 12/27/16 19:40 01:55 05:55 Activated Partial 41.0 SEC 44.7 SEC Thromboplast Time Total Creatine Kinase 123 U/L 98 U/L Troponin I 0.04 NG/ML 0.03 NG/ML White Blood Count 11.2 TH/MM3 Red Blood Count 5.12 MIL/MM3 Hemoglobin 14.2 GM/DL Hematocrit 43.6 % Mean Corpuscular Volume 85.1 FL Mean Corpuscular Hemoglobin 27.8 PG Mean Corpuscular Hemoglobin 32.6 % Concent Red Cell Distribution Width 15.1 % Platelet Count 912 TH/MM3 Mean Platelet Volume 9.4 FL Neutrophils (%) (Auto) 78.6 % Lymphocytes (%) (Auto) 12.1 % Monocytes (%) (Auto) 7.6 % Eosinophils (%) (Auto) 1.4 % Basophils (%) (Auto) 0.3 % Neutrophils # (Auto) 8.7 TH/MM3 Lymphocytes # (Auto) 1.4 TH/MM3 Monocytes # (Auto) 0.9 TH/MM3 Eosinophils # (Auto) 0.2 TH/MM3 Basophils # (Auto) 0.0 TH/MM3 CBC Comment AUTO DIFF Differential Comment AUTO DIFF CONFIRMED Platelet Estimate HIGH Platelet Morphology Comment NORMAL Hemoglobin A1c 5.9 % Triglycerides Level 75 MG/DL Cholesterol Level 148 MG/DL LDL Cholesterol 76 MG/DL HDL Cholesterol 57.3 MG/DL Cholesterol/HDL Ratio 2.58 RATIO Imaging Last Impressions Neck Magnetic Resonance Angiography 12/26/161508 Signed Impressions: Service Date/Time: Monday, December 26, 2016 18:21 - CONCLUSION: 1. Mild stenosis proximal right internal carotid artery. No hemodynamically significant stenosis identified. 2. Mild stenosis of the distal vertebral arteries bilaterally. 3. Both common carotid arteries and left internal carotid artery are patent. Gilberto Blankenship MD Head Magnetic Resonance Angiography 12/26/16 8193 Signed Impressions: Service Date/Time: Monday, December 26, 2016 18:21 - CONCLUSION: Intracranial MRA within normal limits. Evans Duncan MD Brain MRI 12/26/16 4377 Signed Impressions: Service Date/Time: Monday, December 26, 2016 18:21 - CONCLUSION: 1. 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 No hemorrhage, edema or mass effect. 2. No other acute abnormalities are demonstrated. Moderate severity chronic white matter changes. Evans Duncan MD Head CT 12/26/16 0000 Signed Impressions: Service Date/Time: Monday, December 26, 2016 13:51 - CONCLUSION: No acute intracranial abnormality demonstrated. Evans Duncan MD Chest X-Ray 12/26/16 0000 Signed Impressions: Service Date/Time: Monday, December 26, 2016 14:05 - CONCLUSION: No evidence of acute cardiopulmonary disease. Evans Duncan MD Assessment and Plan Problem List: (1) Atrial fibrillation Assessment and Plan: on heparin ggt and warfarin; would recommend lovenox bridge if pt being d/c'd prior to theraputic level of warfarin. would change to eliquis once neuro ok with it. He is currently auto-rate controlled, will plan for outpatient holter. Echo pending. (2) CVA (cerebral infarction) Assessment and Plan If no major findings on echo, ok to d/c home from cardiac standpoint, can f/u in my office in 1-2 weeks. Clay Pealez MD Dec 27, 2016 15:40
--- NOTE | 2016-12-27 17:05 | PD.ONC.PN ---
Subjective Subjective Remarks Feeling better. Vision has improved. No MENEZES. No abdominal pain. Objective Data Date Time Temp Pulse Resp B/P Pulse Ox O2 Delivery O2 Flow Rate FiO2 12/27/16 16:00 98.9 79 18 158/73 92 12/27/16 12:00 97.7 81 17 128/77 95 12/27/16 08:00 97.9 79 18 134/79 96 12/27/16 07:33 95 21 12/27/16 04:00 96.9 63 20 140/78 94 12/27/16 00:00 98.0 76 20 158/76 94 12/26/16 23:25 94 21 12/26/16 20:00 56 12/26/16 20:00 96.4 81 20 136/78 95 Automatic Cuff 12/26/16 17:42 98 21 12/27/16 12/27/16 12/27/16 07:00 15:00 23:00 Intake Total 0 ml Output Total 600 ml 600 ml Balance -600 ml -600 ml Result Diagram: 12/27/16 0555 12/26/16 1410 Laboratory Results Laboratory Tests Test 12/26/16 12/27/16 12/27/16 19:40 01:55 05:55 Activated Partial 41.0 SEC 44.7 SEC Thromboplast Time Total Creatine Kinase 123 U/L 98 U/L Troponin I 0.04 NG/ML 0.03 NG/ML White Blood Count 11.2 TH/MM3 Red Blood Count 5.12 MIL/MM3 Hemoglobin 14.2 GM/DL Hematocrit 43.6 % Mean Corpuscular Volume 85.1 FL Mean Corpuscular Hemoglobin 27.8 PG Mean Corpuscular Hemoglobin 32.6 % Concent Red Cell Distribution Width 15.1 % Platelet Count 912 TH/MM3 Mean Platelet Volume 9.4 FL Neutrophils (%) (Auto) 78.6 % Lymphocytes (%) (Auto) 12.1 % Monocytes (%) (Auto) 7.6 % Eosinophils (%) (Auto) 1.4 % Basophils (%) (Auto) 0.3 % Neutrophils # (Auto) 8.7 TH/MM3 Lymphocytes # (Auto) 1.4 TH/MM3 Monocytes # (Auto) 0.9 TH/MM3 Eosinophils # (Auto) 0.2 TH/MM3 Basophils # (Auto) 0.0 TH/MM3 CBC Comment AUTO DIFF Differential Comment AUTO DIFF CONFIRMED Platelet Estimate HIGH Platelet Morphology Comment NORMAL Hemoglobin A1c 5.9 % Triglycerides Level 75 MG/DL Cholesterol Level 148 MG/DL LDL Cholesterol 76 MG/DL HDL Cholesterol 57.3 MG/DL Cholesterol/HDL Ratio 2.58 RATIO Administered Medications Medications (Trade) Dose Ordered Sig/Laney Route PRN Reason Start Time Stop Time Status Last Admin Dose Admin Aspirin (Aspirin) 325 mg DAILY PO 12/27/16 09:00 12/27/16 09:32 Hydroxyurea (Hydrea) 500 mg DAILY PO 12/26/16 18:00 12/26/16 19:58 IV Flush 2 ml 2 ml BID IV FLUSH 12/27/16 09:00 12/27/16 09:00 Sodium Chloride (NS 1000 ml Inj) 1,000 ml @ 70 mls/hr [id number] IV 12/26/16 21:05 12/26/16 21:39 Objective Remarks GENERAL: Well-nourished, well-developed patient. SKIN: Warm and dry. HEAD: Normocephalic. EYES: No scleral icterus. No injection or drainage. NECK: Supple, trachea midline. No JVD or lymphadenopathy. LYMPHATIC: No adenopathy. CARDIOVASCULAR: Regular rate and rhythm without murmurs. RESPIRATORY: Breath sounds equal bilaterally. No accessory muscle use. GASTROINTESTINAL: Abdomen soft, non-tender, nondistended. EXTREMITIES: No cyanosis, or edema. MUSCULOSKELETAL: Adequate muscle tone. NEUROLOGICAL: No obvious focal deficit. Awake, alert, and oriented x3. PSYCHIATRIC: Appropriate mood and affect; insight and judgment normal. Assessment/Plan Assessment 1. Chronic myeloproliferative disorder. He saw Dr. Voss the end of 2014. At that time, he had a bone marrow biopsy which showed a hypercellular bone marrow with feature of chronic myelopreoliferative disorder. TAMIKO-2 mutation and MPL mutation negative. 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 At that time, his platelet count was around 700,000. Dr. Voss suggested that the patient start hydroxyurea, but the patient did not want to start at that time because he was going on a cruise. However, he never followed up. He was just taking baby aspirin. He presented today with platelet count of more than 1,000,000. I think that this might be one of the factors that caused the stroke. His white cell and hemoglobin are normal. He also has symptom of early satiety for one year, but I could not palpate his spleen. I told him with the essentially thrombocythemia and such high platelet count he has a high risk of thromboembolic event as well as bleeding if he has acquired von Willebrand disease. At this point, the patient is already on heparin drip. 12/27/16 Started hydrea 12/26. Tolerated well, platelet down to 912k. I told him to f/u with to monitor his platelet. 2. Acute stroke. He lost his peripheral vision acutely this morning. He has no other symptom. A CT of the head is negative. Further radiologic study is pending. He is now on heparin drip. He is awaiting neurology evaluation. I think he would need anticoagulation, especially as he has high risk of recurrent thromboembolic event with the chronic myeloproliferative disorder. He could be bridged to Coumadin or new oral anticoagulant once he is cleared by neurology. 12/27/16 Symptoms improved. He is going to start coumadin 3. Chronic abdominal pain. He has history of gastritis and gastroesophageal reflux disease. He said this has been going on for more than five years. He stated he had a CT scan done at the [place] last year which was unremarkable. I told him that he will need GI workup, but this can be done as outpatient. 4. Hypertension. Plan PLAN 1. Continue hydrea and monitor CBC 2. Continue heparin drip and bridge to Coumadin per neurology recommendation. 3. Recommend GI workup, but this can be done as outpatient. 4. Get ultrasound of the abdomen to evaluate spleen given his symptoms. Carlos Donovan MD Dec 27, 2016 17:05
--- NOTE | 2016-12-27 17:11 | EKG ---
Date Performed: 12/26/2016 Time Performed: 14:37:22 PTAGE: 86 years EKG: ATRIAL FIBRILLATION WITH ABERRANT CONDUCTION OR VENTRICULAR PREMATURE COMPLEXES INTRAVENTRI CULAR CONDUCTION DELAY POSSIBLE LATERAL MYOCARDIAL INFARCTION ABNORMAL ECG NO PREVIOUS TRACING DOCTOR: Domenic Keller Interpretating Date/Time 12/27/2016 17:09:08
--- NOTE | 2016-12-27 17:13 | HHI.PR ---
Addendum to Inpatient Note Addendum Reason: Additional Documentation Additional Information Cardiology recommends eliquis. Discussed w neuro and ok to switch to eliquis. Awaiting ECHO results to verify if pt's atrial fib is non valvular. continue heparin gtt for now, start po anticoagulation tomorrow once echo report available. Geno Donis MD Dec 27, 2016 17:13
--- NOTE | 2016-12-27 19:25 | HHI.PR ---
Review/Management Diagnosis occipital CVA afib Plan recommend senior care anticoagulation with eliquis or coumadin Pt counselled to d/c etoh Diagnosis/Plan: Subjective Subjective Comments No acute events reported No change in vision Active Medications Current Medications Medications (Trade) Dose Ordered Sig/Laney Route Start Time Stop Time Status Last Admin (Vasotec Inj) 1.25 mg Q4H PRN IV 12/26/16 15:30 Aspirin 325 mg 325 mg DAILY PO 12/27/16 09:00 12/27/16 09:32 (Heparin-D5W Inj) 250 ml @ 0 mls/hr TITRATE IV 12/26/16 15:30 (Hydrea) 500 mg DAILY PO 12/26/16 18:00 12/27/16 09:00 (NS Flush) 2 ml BID IV FLUSH 12/27/16 09:00 12/27/16 09:00 IV Flush 2 ml 2 ml UNSCH PRN IV FLUSH 12/26/16 21:15 (NS 1000 ml Inj) 1,000 ml @ 70 mls/hr [id number] IV 12/26/16 21:05 12/27/16 11:23 (NovoLOG SUPPLEMENTAL SCALE) 1 ACHS SQ 12/27/16 07:00 (D50w (Vial) Inj) 50 ml UNSCH PRN IV PUSH 12/26/16 21:15 (Glucagon Inj) 1 mg UNSCH PRN OTHER 12/26/16 21:15 (Lipitor) 10 mg HS PO 12/27/16 21:00 Allergies Allergies Coded Allergies No Known Allergies (Unverified12/26/16) Exam I&O / VS 12/26/16 12/26/16 12/27/16 14:59 22:59 06:59 Intake Total 304 ml 0 ml Output Total 600 ml 600 ml Balance -296 ml -600 ml Intake Oral 120 ml 0 ml IV Total 184 ml Output Urine Total 600 ml 600 ml # Voids 1 4 # Bowel Movements 0 0 Vital Signs Date Time Temp Pulse Resp B/P Pulse Ox O2 Delivery O2 Flow Rate FiO2 12/27/16 16:00 98.9 79 18 158/73 92 12/27/16 12:00 97.7 81 17 128/77 95 12/27/16 08:00 97.9 79 18 134/79 96 12/27/16 08:00 62 12/27/16 07:33 95 21 8/6/17 04:00 96.9 63 20 140/78 94 12/27/16 00:00 98.0 76 20 158/76 94 12/26/16 23:25 94 21 12/26/16 20:00 56 12/26/16 20:00 96.4 81 20 136/78 95 Automatic Cuff Exam Comments alert speech normal CN perrl eom intact right hemianopsia MOTOR 5/5 BUE and BLE Objective Micro and Labs Laboratory Tests Test 12/26/16 12/27/16 12/27/16 19:40 01:55 05:55 Activated Partial 41.0 44.7 Thromboplast Time Total Creatine Kinase 123 98 Troponin I 0.04 0.03 White Blood Count 11.2 Red Blood Count 5.12 Hemoglobin 14.2 Hematocrit 43.6 Mean Corpuscular Volume 85.1 Mean Corpuscular Hemoglobin 27.8 Mean Corpuscular Hemoglobin 32.6 Concent Red Cell Distribution Width 15.1 Platelet Count 912 Mean Platelet Volume 9.4 Neutrophils (%) (Auto) 78.6 Lymphocytes (%) (Auto) 12.1 Monocytes (%) (Auto) 7.6 Eosinophils (%) (Auto) 1.4 Basophils (%) (Auto) 0.3 Neutrophils # (Auto) 8.7 Lymphocytes # (Auto) 1.4 Monocytes # (Auto) 0.9 Eosinophils # (Auto) 0.2 Basophils # (Auto) 0.0 CBC Comment AUTO DIFF Differential Comment AUTO DIFF CONFIRMED Platelet Estimate HIGH Platelet Morphology Comment NORMAL Hemoglobin A1c 5.9 Triglycerides Level 75 Cholesterol Level 148 LDL Cholesterol 76 HDL Cholesterol 57.3 Cholesterol/HDL Ratio 2.58 Brandin Lock PhD Dec 27, 2016 19:25
--- NOTE | 2016-12-27 20:03 | RADRPT ---
EXAM DATE/TIME: 12/27/2016 19:21 [facility] COMPARISON: No previous studies available for comparison. INDICATIONS : Acute CVA. MEDICAL HISTORY : Hypercholesterolemia. Hypertension. Hobgood palsy. Dyspnea. Blood dyscrasias. Skin carcinoma. SURGICAL HISTORY : Back surgery. ENCOUNTER: Initial ACUITY: 3 days PAIN SCORE: 0/10 LOCATION: Bilateral neck PEAK SYSTOLIC VELOCITIES (cm/sec): ICA/CCA RATIO: Right: 1.0 Left: 0.8 ICA: Right: 92 Left: 111 CCA: Right: 98 Left: 166 ECA: Right: 106 Left: 62 VERTEBRAL: Right: 65 antegrade Left: 60 antegrade Elevated flow velocities and ICA/CCA ratios have been found to correlate with increased degrees of vessel stenosis, calculated as percentage of diameter relative to a normal segment of distal ICA/CCA FINDINGS: There is moderate visible plaque formation bilaterally. There is some blunting of the waveforms but v elocity measurements do not indicate a hemodynamically significant stenosis. Vertebral artery flow an tegrade bilaterally. CONCLUSION: 1. Moderate visible plaque with blunting of the waveforms bilaterally but without definite evidence f or hemodynamically significant stenosis. Vertebral artery flow antegrade. Gilberto Blankenship MD on December 27, 2016 at 20:00 Board Certified Radiologist. This report was verified electronically.
[2016-12-27] MEDS ORDERED: ATORVASTATIN 10 MG TAB PO SCH (21:00)
[2016-12-28] VITALS: BP 104/65; PULSE 51; RESP 16; TEMP 97.8; O2SAT 95
[2016-12-28 04:00] VITALS: BP 125/51; PULSE 72; RESP 18; TEMP 98.2; O2SAT 96
[2016-12-28] MEDS: SODIUM CHLOR 0.9% 1000 ML INJ 1,000 ML IV SCH (04:57)
[2016-12-28] MEDS: INSULIN ASPART SUPPLEMENTAL SCALE SQ SCH ×2 (06:28→11:00)
[2016-12-28 06:53] LABS: POTASSIUM 4.1 MEQ/L (3.5-5.1)
[2016-12-28 06:57] LABS: BICARBONATE 20.9 MEQ/L (21.0-32.0)
[2016-12-28 07:15] VITALS: PULSE 60
[2016-12-28 08:00] VITALS: BP 145/76; PULSE 50; RESP 20; TEMP 97.6; O2SAT 96
--- NOTE | 2016-12-28 08:41 | RADRPT ---
EXAM DATE/TIME: 12/28/2016 07:39 [facility] COMPARISON: No previous studies available for comparison. INDICATIONS : Evaluate liver and spleen size. MEDICAL HISTORY : Hypercholesterolemia. Moses's palsy. htn. dsypnea. blood dyscrasias. skin cancer. anticoagulant th erapy, aspirin 81mg. SURGICAL HISTORY : Back surgery. ENCOUNTER: Initial ACUITY: 2 days PAIN SCORE: 0/10 LOCATION: Bilateral upper quadrant MEASUREMENTS: LIVER: 13.6 cm length COMMON DUCT: 2 mm RIGHT KIDNEY: 10.1 x 4.5 x 5.6 cm SPLEEN: 10.7 cm length FINDINGS: LIVER: Normal echotexture without focal lesion or ductal dilatation. COMMON DUCT: No intraluminal mass or stone visualized. GALLBLADDER: Contains no stones, demonstrates no wall thickening or pericholecystic fluid. PANCREAS: The visualized portions are within normal limits. RIGHT KIDNEY: No hydronephrosis, stone or mass. SPLEEN: Normal size. No focal lesion. CONCLUSION: No evidence of hepatosplenomegaly. Evans Santos MD on December 28, 2016 at 8:35 Board Certified Radiologist. This report was verified electronically.
[2016-12-28] MEDS: HYDROXYUREA 500 MG CAP PO SCH (08:52)
[2016-12-28] MEDS: ASPIRIN 325 MG TAB PO SCH (08:52)
[2016-12-28] MEDS: SODIUM CHLORIDE 0.9% FLUSH 5 ML FLUSH IV FLUSH SCH (08:52)
--- NOTE | 2016-12-28 09:05 | ECHRPT ---
Indication: cva/tia CONCLUSIONS Normal left ventricular size. There is assymetric septal hypertrophy. The left ventricular systolic function is low normal with an estimated ejection fraction in the rang e of 50- 55%. No regional wall motion abnormalities are present. The right atrial size is mildly dilated. Mild mitral valve regurgitation. Mild aortic valve regurgitation. There is mild tricuspid valve regurgitation. There is estimated mild pulmonary hypertension present (range 40-50 mmHg). The pulmonary valve is not well visualized. BP: / HR: Rhythm: Technical Quality:Fair FINDINGS LEFT VENTRICLE Normal left ventricular size. There is assymetric septal hypertrophy. The left ventricular systolic function is low normal with an estimated ejection fraction in the rang e of 50- 55%. No regional wall motion abnormalities are present. RIGHT VENTRICLE Normal right ventricular size and systolic function. LEFT ATRIUM The left atrial size is normal. RIGHT ATRIUM The right atrial size is mildly dilated. ATRIAL SEPTUM Normal atrial septal thickness without atrial level shunting by limited color doppler interrogation. AORTA The aortic root and proximal ascending aorta are normal in size on limited imaging. MITRAL VALVE Structurally normal mitral valve. Mild mitral valve regurgitation. AORTIC VALVE Trileaflet aortic valve. Mild aortic valve regurgitation. Mild thickening of the aortic valve leaflets. TRICUSPID VALVE Structurally normal tricuspid valve. There is mild tricuspid valve regurgitation. There is estimated mild pulmonary hypertension present (range 40-50 mmHg). PULMONARY VALVE The pulmonary valve is not well visualized. VESSELS The inferior vena cava is normal in size. PERICARDIUM No pericardial effusion. Clay Pelaez MD (Electronically Signed) Final Date:28 December 2016 09:04
[2016-12-28 09:47] LABS: AUTOMATED NEUTROPHIL # 8.5 TH/MM3 (1.8-7.7); BASOPHIL % 0.4 % (0.0-2.0); EOSINOPHIL # 0.3 TH/MM3 (0-0.4); EOSINOPHIL % 2.8 % (0.0-4.0); HEMATOCRIT 44.6 % (39.0-51.0); LYMPH % 15.3 % (9.0-44.0); LYMPHOCYTE # 1.7 TH/MM3 (1.0-4.8); MEAN CELL VOLUME 85.2 FL (80.0-100.0); MEAN CORPUSCULAR HEMOGLOBIN 27.6 PG (27.0-34.0); MEAN CORPUSCULAR HGB CONC 32.3 % (32.0-36.0); MONO % 7.4 % (0.0-8.0); NEUT % 74.1 % (16.0-70.0); PLATELET COUNT 959 TH/MM3 (150-450); RED BLOOD COUNT 5.23 MIL/MM3 (4.50-5.90); WHITE BLOOD COUNT 11.3 TH/MM3 (4.0-11.0)
[2016-12-28 09:54] LABS: APTT (PATIENT) 49.5 SEC (24.3-30.1)
[2016-12-28 10:02] LABS: HEMO FLAGS AUTO DIFF
[2016-12-28 11:42] LABS: PLATELET ESTIMATE SMEAR HIGH (NORMAL); PLATELET MORPHOLOGY NORMAL (NORMAL); SCAN/DIFF AUTO DIFF CONFIRMED
[2016-12-28] MEDS ORDERED: HYDR500C PO (11:46)
[2016-12-28] MEDS ORDERED: LIPI10TA PO (11:46)
[2016-12-28] MEDS ORDERED: APIX5TAB PO (11:46)
--- NOTE | 2016-12-28 11:48 | HHI.DCPOC ---
Discharge Care Plan Diagnosis: (1) Atrial fibrillation (2) CVA (cerebral infarction) (3) Thrombocytosis Goals to Promote Your Health * To prevent worsening of your condition and complications * To maintain your health at the optimal level Directions to Meet Your Goals Take your medications as prescribed Follow your dietary instruction Follow activity as directed Keep your appointments as scheduled Take your immunizations and boosters as scheduled If your symptoms worsen call your PCP, if no PCP go to Urgent Care Center or Emergency Room Smoking is Dangerous to Your Health. Avoid second hand smoke Call the 24-hour hour crisis hotline for domestic abuse at Patricia Cortez MD Dec 28, 2016 11:48
--- NOTE | 2016-12-28 11:53 | HHI.DS ---
Discharge Summary Admission Date Dec 26, 2016 at 15:10 Discharge Date: Dec 28, 2016 Admitting Diagnosis acute CVA (1) Atrial fibrillation ICD Code: I48.91 (2) CVA (cerebral infarction) ICD Code: I63.9 (3) Thrombocytosis ICD Code: D47.3 Procedures none Brief History - From Admission 86-year-old male with past medical history of gastritis/GERD, chronic myeloproliferative disorder, thrombocytosis and hypertension presented to the emergency room as a stroke alert. Patient tells me that this morning he was reading when suddenly he started having vision problems. He was a little diaphoretic but then that resolved. He states when he was looking straight ahead he noticed that his peripheral vision was gone. He tried to look straight at his however he could only see her left eye. He denied any chest pain, shortness of breath, nausea or vomiting. He denies any weakness in his arm or legs. 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 Patient has never had a stroke before. When asked if he has a history of atrial fibrillation, patient denies. Patient tells me that he sees Dr. Dr. Voss for the thrombocytosis and he is only on aspirin for it. CBC/BMP: 12/28/16 0930 12/28/16 0555 Significant Findings Laboratory Tests Test 12/26/16 12/26/16 12/27/16 12/27/16 14:10 19:40 01:55 05:55 Platelet Count 1023 TH/MM3 912 TH/MM3 (150-450) (150-450) Neutrophils (%) (Auto) 72.0 % 78.6 % (16.0-70.0) (16.0-70.0) Platelet Estimate HIGH (NORMAL) HIGH (NORMAL) Fibrinogen 383 mg/dL (227-377) Blood Urea Nitrogen 24 MG/DL (7-18) Estimat Glomerular Filtration 64 ML/MIN (>89) Rate Activated Partial 41.0 SEC 44.7 SEC Thromboplast Time (24.3-30.1) (24.3-30.1) White Blood Count 11.2 TH/MM3 (4.0-11.0) Neutrophils # (Auto) 8.7 TH/MM3 (1.8-7.7) Test 12/28/16 12/28/16 05:55 09:30 Chloride Level 108 MEQ/L (98-107) Carbon Dioxide Level 20.9 MEQ/L (21.0-32.0) Blood Urea Nitrogen 20 MG/DL (7-18) Estimat Glomerular Filtration 71 ML/MIN (>89) Rate Calcium Level 8.4 MG/DL (8.5-10.1) White Blood Count 11.3 TH/MM3 (4.0-11.0) Platelet Count 959 TH/MM3 (150-450) Neutrophils (%) (Auto) 74.1 % (16.0-70.0) Neutrophils # (Auto) 8.5 TH/MM3 (1.8-7.7) Platelet Estimate HIGH (NORMAL) Activated Partial 49.5 SEC Thromboplast Time (24.3-30.1) Imaging Last Impressions Liver Ultrasound 12/28/16 0000 Signed Impressions: Service Date/Time: Wednesday, December 28, 2016 07:39 - CONCLUSION: No evidence of hepatosplenomegaly. Evans Santos MD Carotid Artery Ultrasound 12/27/16 0000 Signed Impressions: Service Date/Time: Tuesday, December 27, 2016 19:21 - CONCLUSION: 1. Moderate visible plaque with blunting of the waveforms bilaterally but without definite evidence for hemodynamically significant stenosis. Vertebral artery flow antegrade. Gilberto Blankenship MD Neck Magnetic Resonance Angiography 12/26/16 1509 Signed Impressions: Service Date/Time: Monday, December 26, 2016 18:21 - CONCLUSION: 1. Mild stenosis proximal right internal carotid artery. No hemodynamically significant stenosis identified. 2. Mild stenosis of the distal vertebral arteries bilaterally. 3. Both common carotid arteries and left internal carotid artery are patent. Gilberto Blankenship MD Head Magnetic Resonance Angiography 12/26/16 1509 Signed Impressions: Service Date/Time: Monday, December 26, 2016 18:21 - CONCLUSION: Intracranial MRA within normal limits. Evans Duncan MD Brain MRI 12/26/16 1509 Signed Impressions: Service Date/Time: Monday, December 26, 2016 18:21 - CONCLUSION: 1. 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 No hemorrhage, edema or mass effect. 2. No other acute abnormalities are demonstrated. Moderate severity chronic white matter changes. Evans Duncan MD Head CT 12/26/16 0000 Signed Impressions: Service Date/Time: Monday, December 26, 2016 13:51 - CONCLUSION: No acute intracranial abnormality demonstrated. Evans Duncan MD Chest X-Ray 12/26/16 0000 Signed Impressions: Service Date/Time: Monday, December 26, 2016 14:05 - CONCLUSION: No evidence of acute cardiopulmonary disease. Evans Duncan MD PE at Discharge GENERAL: This is a well-nourished, well-developed patient, laying flat in bed SKIN: Tanned skin. Cool and dry. EYES: Extraocular motions intact. No scleral icterus. No injection or drainage. Peripheral vision on the right eye improving, is able to discern how many fingers is being held up during exam at least 70% of the time. Left eye is able to see peripherally and is also able discern how many fingers being held up at least 90% of the time. Patient is able to see when looking straight at object ENT: Nose without drainage. Airway patent. NECK: Trachea midline. CARDIOVASCULAR: Irregularly irregular however controlled. No murmurs RESPIRATORY: Clear to auscultation. Breath sounds equal bilaterally. No wheezes GASTROINTESTINAL: Abdomen soft, non-tender, nondistended. MUSCULOSKELETAL: Extremities without edema. No calf tenderness. Negative Homans sign bilaterally. NEUROLOGICAL: Awake and alert. See exam above. Motor and sensory grossly within normal limits. Moving all extremities. Normal speech. Pt update on day of discharge Patient seen today in follow-up for acute occipital infarct. No new events. Patient's discharge plans discussed with patient. Indications for medications and need for follow-up reinforced with patient who is in agreement. I also discussed this with his and the [facility] Hospital Course Patient is a 86-year-old gentleman with a history of myeloproliferative disorder essential/ thrombocytosis. Patient had an acute stroke with new onset of atrial fibrillation. Patient had acute findings of a occipital infarct and was found to have atrial fibrillation. Patient has been started on anticoagulation and seen by the cardiology team. An echocardiogram was done which is unremarkable for valvular disease and imaging results are as above. Although the patient initially was on heparin he was transitioned to Eliquis without difficulty. He was discharged home. He was seen by rehabilitation teams OT and PT. Recommendations for home helper indicated Pt Condition on Discharge: Good Discharge Disposition: Discharge Home Discharge Time: > 30 minutes Discharge Instructions DIET: Follow Instructions for: Heart Healthy Diet Activities you can perform: Regular-No Restrictions Follow up Referrals: Cardiology - 1 Month with Clay Pelaez MD Oncology - 2 Weeks @ [facility] New Medications: Apixaban (Eliquis) 5 Mg Tab 5 MG PO BID afib #62 TAB Atorvastatin (Lipitor) 10 Mg Tab 10 MG PO HS stroke #31 TAB Hydroxyurea (Hydrea) 500 Mg Cap 500 MG PO DAILY mld #31 CAP Continued Medications: Aspirin (Aspirin) 81 Mg Chew 81 MG CHEW DAILY Ref 0 TAB ([b/p pill]) 1 TAB PO HS Discontinued Medications: Lovastatin (Lovastatin) 40 Mg Tab 40 MG PO DAILY Cholesterol Management #30 Ref 0 TAB Patricia Cortez MD Dec 28, 2016 11:53
[2016-12-28] MEDS ORDERED: APIXABAN 5 MG TABLET PO SCH ×2 (12:15→21:00)
[2016-12-28] MEDS ORDERED: WARFARIN SOD 5 MG TAB PO SCH (16:00)
== END 2016-12-28 13:10 | disposition home or self-care (01) | DRG 65 ==
LOC: PHED 13:22 → PHEDA 15:10 → PH3B 16:21
PROVIDERS: ADMIT Hospitalist; ATTEND Hospitalist
DX: I63.522 Cerebral infarction due to unspecified occlusion or stenosis of left anterior cerebral artery (principal); D47.1 Chronic myeloproliferative disease; I48.92 Unspecified atrial flutter; I48.91 Unspecified atrial fibrillation; D47.3 Essential (hemorrhagic) thrombocythemia; K21.9 Gastro-esophageal reflux disease without esophagitis; I10 Essential (primary) hypertension; E78.5 Hyperlipidemia, unspecified; G89.29 Other chronic pain; R10.9 Unspecified abdominal pain; H53.469 Homonymous bilateral field defects, unspecified side; I49.3 Ventricular premature depolarization; Z79.82 Long term (current) use of aspirin
CPT/HCPCS: 70450; 70544; 70548; 70551; 71010; 76705; 80048; 80061; 81001; 82550; 82948; 83036; 83735; 84484; 85025; 85384; 85610; 85730; 86850; 86900; 86901; 93005; 93306; 93880; A9579; J1644; J7030

== ENCOUNTER 2017-03-17 06:31 | Day surgery (SDC) | payer OTHER ==
[~2017-03-17] VITALS: Ht 167.6 cm; Wt 91.3 kg
[~2017-03-17 06:31] MED LIST changes: +APIX5TAB PO; +ASPI81CH CHEW; -ASPI81TA17 PO; +HYDR500C PO; +LIPI10TA PO; -LOVA40TA PO; -TRAM50 PO; +[UNRECOGNIZED DRUG - REMARK] PO
[2017-03-17] MEDS ORDERED: IOHEXOL 350 MG/ML 100 ML BTL (for Cath Lab) OTHER ONE (06:32)
[2017-03-17] MEDS ORDERED: NS 1000P @30 MLS/HR (KVO) IV SCH (07:00)
[2017-03-17] MEDS ORDERED: AMLO5TAB2 PO (07:09)
[2017-03-17 07:10] VITALS: BP 210/80; PULSE 74; RESP 16; TEMP 97.8; O2SAT 99
[2017-03-17 07:31] LABS: AUTOMATED NEUTROPHIL # 7.9 TH/MM3 (1.8-7.7); BASOPHIL % 0.4 % (0.0-2.0); EOSINOPHIL # 0.2 TH/MM3 (0-0.4); EOSINOPHIL % 1.6 % (0.0-4.0); HEMOGLOBIN 15.2 GM/DL (13.0-17.0); LYMPHOCYTE # 1.8 TH/MM3 (1.0-4.8); MEAN CELL VOLUME 95.2 FL (80.0-100.0); MEAN CORPUSCULAR HEMOGLOBIN 32.2 PG (27.0-34.0); MEAN CORPUSCULAR HGB CONC 33.8 % (32.0-36.0); MONOCYTE # 0.6 TH/MM3 (0-0.9); PLATELET COUNT 519 TH/MM3 (150-450); RED BLOOD COUNT 4.73 MIL/MM3 (4.50-5.90); RED CELL DISTRIBUTION WIDTH 21.8 % (11.6-17.2); WHITE BLOOD COUNT 10.5 TH/MM3 (4.0-11.0)
[2017-03-17 07:44] LABS: PROTHROMBIN TIME - PATIENT 11.3 SEC (9.8-11.6)
[2017-03-17 08:02] LABS: BICARBONATE 25.7 MEQ/L (21.0-32.0); CALCIUM 8.6 MG/DL (8.5-10.1); CREATININE 1.03 MG/DL (0.60-1.30)
[2017-03-17] MEDS ORDERED: HEPARIN-NS/PF INJ 1,500 ML ONE (08:12)
[2017-03-17] MEDS ORDERED: VERAPAMIL HCL 5 MG/2 ML VIAL ONE (08:13)
[2017-03-17] MEDS ORDERED: HEPARIN SODIUM - IV 10,000 UNITS/10 ML VIAL ONE (08:13)
[2017-03-17] MEDS ORDERED: MIDAZOLAM HCL 2 MG/2 ML VIAL ONE (08:13)
[2017-03-17] MEDS ORDERED: NITROGLYCERIN INJ 5 ML ONE (08:13)
--- NOTE | 2017-03-17 09:16 | CATHPROC ---
[facility] HIS Report Study Information Study Number Admission Scheduled Start Study Start [id number] Mar 17 2017 6:31AM 03/17/2017 Mar 17 2017 8:08AM [place] [facility] Cardiac Catheterization Admit Source Facility Department Other [facility] - Physiological Chemist Physician and Clinical Staff Initial Abdoul Silva Air Conditioning Equipment Mechanic Rebecca Razo,NEISHA Other cathlab, cathlab Recorder Jaziel Ivory RCIS(BS) Scrub Cheyenne Mendez RCIS TECH2 Procedures Performed Procedure Location (Site) Vessel Name Coronary Angiograms LCA Left Coronary Coronary Angiograms RCA Right Coronary L Heart Cath Equipment Time V Belt Finisher Description Size Mfg Part Number Used/Scraped TRANSDUCER, TRUWAVE [id number] 08:08 FREDERICK BARRIENTOS * Used W/STOCKCOCK *[id number] [id number] *[id number] 534-521T *[id number] 08:08 [employer] PACK, CCL CUSTOM * Used *[id number] 08:08 [employer] SUPPORT, ARTERIAL ADULT 57744 *[id number] Used BAND, RADIAL COMPRESSION TR [id number] 09:06 [employer] MEDICAL 29CM Used LARGE 29 *[id number] 08:08 [employer] WIRE, EXCHANGE 260CM 3MMJ 260CM Used *[id number] 08:08 NAMIC MANIFOLD, 4 PORT * Used *[id number] 08:08 NYCOMED OMNIPAQUE, 350 MG, 150ML 150ML [id number] Used [id number] 08:08 [employer]AR[employer]ICAL BLANKET,WARM AIR CCL * Used *[id number] SHEATH, FR6 TRANSRADIAL [id number] 08:08 [employer] MEDICAL FR 6 Used SLENDER 10CM *[id number] History: Current Medications Medication Dosage/Unit Route Frequency Last Date/Time Taken Statins (any) ASA History: Allergies Allergy Reaction No Known Allergies History: Risk Factors Family History of Hypertension Dyslipidemia Previous [place] Previous Heart Failure Premature CAD Yes No No No No Prior Valve Prior PCI Prior CABG Surgery No No No Cerebrovascular Peripheral Artery Chronic Lung On Dialysis Diabetes Disease Disease Disease No Yes No No No History: Symptoms/Diagnosis Selection Items SOB History: Stress Tests Stress or Imaging Studies Performed Yes Standard Exercise Stress Test No Stress Echo No Stress Test SPECT Stress Test SPECT Result Stress Test SPECT Ischemia Risk/Extent Yes Positive Intermediate Stress Test CMR No Cardiac CTA Coronary Calcium Score No No History: Other Disease Selection Items HTN History: Other Current Smoker No Labs Hgb (g/dl) Hct (%) WBC (l/cumm) 11.60-17.00 35.00-51.00 4.00-11.00 15.2 45 10.5 Glucose (mg/dl) BUN (mg/dl) Creatinine (mg/dl) BUN:Creatinine (1:x) 74.00-106.00 7.00-18.00 0.50-1.30 10.00-20.00 101 19 1.0 19 Na (meq/l) K (meq/l) 136.00-145.00 3.50-5.10 139 4.5 INR (PTT:PT) 0.90-1.10 1 CPK-MB (ng/ML) 0.50-3.60 Not Drawn Medication Medication Total Dose (Bolus/Oral) Medication Total Dosage/Unit 1% XYLOCAINE 3 mL FENTANYL 25 mcg RADIAL COCKTAIL 5 mL (Bolus) VERSED 0.5 mg Medications (Bolus/Oral) Medication Time Given Dosage/Unit Administered By Reason VERSED 03/17/2017 8:35:02 AM 0.5 mg Rebecca Razo 0.5 mg VERSED given in lab by Rebecca Razo, NEISHA in Left Forearm via Peripheral IV. Ordered by Abdoul Marshall FENTANYL 03/17/2017 8:36:03 AM 25 mcg Rebecca Razo 25 mcg FENTANYL given in lab by Rebecca Razo, NEISHA in Left Forearm via Peripheral IV. Ordered by Abdoul Weeks 1% XYLOCAINE 03/17/2017 8:38:57 AM 3 mL Abdoul Bacon 3 mL 1% XYLOCAINE given in lab by Abdoul Bacon in Right Radial via Subcutaneous. Ordered by Abdoul Guevara Ntg 200mcg Verapamil 2.5mg Heparin RADIAL COCKTAIL 03/17/2017 8:40:56 AM 5 mL (Bolus) Abdoul Bacon 3000U 5 mL (Bolus) RADIAL COCKTAIL given in lab by Abdoul Bacon in Right Radial via Radial. Using [S olution Name]. Ordered by Abdoul Bacon Reason: Ntg 200mcg Verapamil 2.5mg Heparin 3700U. Medication (Drip) Medication Time Given Dosage/Unit Concentration/Unit Diluent (ml) Solution IV Solutions 03/17/2017 8:11:17 AM 0 mL (IV) 500 NaCl .9 Patient arrived on IV Solutions in Left Forearm via Peripheral IV. Pump/Drip Flow = 20 ml/hr using Na Cl .9. Ordered by Abdoul Bacon Initial Case Assessment Cardiovascular HR Rhythm NIBP Chest Pain 79 nsr 145/94 0 Edema Present Skin color Skin None Normal Warm Dry Circulatory - Right Pulses Dorsalis Pedis Femoral Radial 2 2 2 Scale (0,1,2,3,4,d) Circulatory - Left Pulses Dorsalis Pedis Femoral Radial 2 2 Scale (0,1,2,3,4,d) Neurological State Oriented to time-place- Alert Moves all extremities person Respiration - General Respiration Rate SpO2 (%) (B/min) 15 98 Final Case Assessment Cardiovascular HR Rhythm NIBP Chest Pain 63 nsr 146/75 0 Edema Present Skin color Skin None Normal Warm Dry Circulatory - Right Pulses Dorsalis Pedis Femoral Radial 2 2 2 Scale (0,1,2,3,4,d) Circulatory - Left Pulses Dorsalis Pedis Femoral Radial 2 2 Scale (0,1,2,3,4,d) Neurological State Oriented to time-place- Alert Moves all extremities person Respiration - General Respiration Rate SpO2 (%) (B/min) 15 98 Chronological Log Time Study Chronological Log 8:11:05 Patient arrived via Bed. 8:11:06 Patient Name, D.O.B, / Armband Verified By R.N. 8:11:06 Consent signed by the physician and the patient and verified by the Physiological Chemist staff. 8:11:07 Pre-op and post- op instructions given; patient acknowledges understanding of instructions. 8:11:07 Verbal Stimulation=2 Physical Stimulation=2 Airway=2 Respiration=2 TOTAL=8. (0=absent, 1=li mited, 2=present) 8:11:08 Presedation assessment performed by Physiological Chemist RN. 8:11:09 Allens test performed on the right radial and ulnar artery- POSITIVE. 8:11:10 Immediate Presedation assesment performed by physician. 8:11:13 Patient has been NPO for More than 6Hrs. 8:11:14 Skin Breakdown- none per patient 8:11:14 Patient Warmer Placed on the Table. 8:11:16 Malissa Prominences Protected 8:11:17 A # 20 IV was noted in the Forearm (left). Grade = 0 Patient arrived on IV Solutions in Left Forearm via Peripheral IV. Pump/Drip Flow = 20 ml/hr us ing NaCl .9. Ordered by 8:11:17 Abdoul Bacon 8:11:18 History and physical on the chart or being dictated. Vitals capture started with the following parameters, Patient=Adult, Interval=5 min, Initial Pr ebvwmy=692 mmHg, 8:15:59 Deflation Rate=5 mmHg, Cuff placed on Left Arm Assessment: Initial Case, HR=79 BPM, Rhythm=nsr, UBDF=345/94 mmhg, Chest Pain=0, Edema=None, Col or=Normal, Skin = Warm, Dry Right Pulses: Abram Ped=2, Femoral=2, Radial=2 8:16:05 Left Pulses: Abram Ped=2, Femoral=2 Neurological: State=Alert, Ox3, CRABTREE Respiration: Resp=15 B/min, SpO2=98 % 8:16:38 HR=77 bpm, TGGY=292/94 mmhg, SpO2=96.0 %, Resp=16 B/min, Pain=0, Kacy=10, Hayes=2 8:17:48 Reference ECG taken 8:22:20 HR=78 bpm, ZOHX=289/96 mmhg, SpO2=98.0 %, Resp=16 B/min, Pain=0, Kacy=10, Hayes=2 8:23:27 Right Radial and groin(s) prepped with 2% chlorhexidine, and draped after a 3 min. waiting t gordon. 8:27:35 HR=69 bpm, REWA=135/83 mmhg, SpO2=99.0 %, Resp=19 B/min 8:30:08 Pressure channel 1 zeroed. 8:31:43 HR=78 bpm, JTIB=487/108 mmhg, SpO2=99.0 %, Resp=19 B/min, Pain=0, Kacy=10, Hayes=2 8:32:43 MD arrived. 8:33:42 Contrast Scanned 8:33:43 Immediate Presedation assesment performed by physician. 8:35:02 0.5 mg VERSED given in lab by Rebecca Razo, RN in Left Forearm via Peripheral IV. Ordered by Abdoul Bacon 25 mcg FENTANYL given in lab by Rebecca Razo, RN in Left Forearm via Peripheral IV. Ordered Abdoul Cardenas 8:36:03 G. Time Out. Correct patient, correct procedure, correct physician, power injector not loaded with contrast with surgical 8:37:17 team present. Time Out Concurred by MD and individual staff in procedure. 8:37:23 HR=79 bpm, VYMG=974/96 mmhg, SpO2=98.0 %, Resp=16 B/min, Pain=0, Kacy=10, Hayes=2 8:37:31 Case Start 8:37:35 Verbal Stimulation=2 Physical Stimulation=2 Airway=2 Respiration=2 TOTAL=8. (0=absent, 1=sanchez ited, 2=present) 3 mL 1% XYLOCAINE given in lab by Abdoul Bacon in Right Radial via Subcutaneous. Ordered by Jordi, 8:38:57 Abdoul Potter. 8:40:35 Access site was Right Radial Artery. A SHEATH, FR6 TRANSRADIAL SLENDER 10CM FR 6 was advanced into the Radial (right) using the Roberto beavers 8:40:43 technique. 5 mL (Bolus) RADIAL COCKTAIL given in lab by Abdoul Bacon in Right Radial via Radial. Usi ng [Solution Name]. 8:40:56 Ordered by Abdoul Bacon. Reason: Ntg 200mcg Verapamil 2.5mg Heparin 3700U. A JR 4.0 INFINITI CATHETER FR 5 was advanced over a wire. OMNIPAQUE, 350 MG, 150ML 150ML was use d for 8:41:10 injections. 8:41:45 HR=78 bpm, GTUA=844/96 mmhg, SpO2=99.0 %, Resp=17 B/min, Pain=0, Kacy=10, Hayes=2 Recorded Pressure: LV, HR=87, Condition=Condition 1 8:43:18 (Left Ventricle) LV 149/3/5 Recorded Pressure: LV, Ao, HR=79, Condition=Condition 1 8:43:33 (Left Ventricle) LV 148/2/5, (Aorta) Ao 148/70/102 Recorded Pressure: Ao, HR=75, Condition=Condition 1 8:44:01 (Aorta) Ao 128/53/93 8:45:40 The RCA was injected and visualized at various angles. OMNIPAQUE, 350 MG, 150ML 150ML used. 8:46:40 HR=76 bpm, LNBT=552/83 mmhg, SpO2=93.0 %, Resp=17 B/min, Pain=0, Kacy=10, Hayes=2 After removing the current catheter a JL 3.5 INFINITI CATHETER FR 5 was advanced over a WIRE, EX CHANGE 260CM 8:47:27 3MMJ 260CM. 8:49:45 The LCA was injected and visualized at various angles. OMNIPAQUE, 350 MG, 150ML 150ML used. 8:51:43 HR=68 bpm, IWUM=245/78 mmhg, SpO2=94.0 %, Resp=18 B/min, Pain=0, Kacy=10, Hayes=2 8:56:46 HR=66 bpm, XMHW=721/74 mmhg, SpO2=94.0 %, Resp=16 B/min, Pain=0, Kacy=10, Ahyes=2 9:01:45 HR=78 bpm, YAJP=605/75 mmhg, SpO2=95.0 %, Resp=14 B/min, Pain=0, Kacy=10, Hayes=2 9:05:38 Catheter was removed 9:05:40 Case End Assessment: Final Case, HR=63 BPM, Rhythm=nsr, UOVX=576/75 mmhg, Chest Pain=0, Edema=None, Col or=Normal, Skin = Warm, Dry Right Pulses: Abram Ped=2, Femoral=2, Radial=2 9:05:44 Left Pulses: Abram Ped=2, Femoral=2 Neurological: State=Alert, Ox3, CRABTREE Respiration: Resp=15 B/min, SpO2=98 % 9:06:01 Catheter(s) removed without difficulty Radial Compression Device Used. 10 mLs of air placed in BAND, RADIAL COMPRESSION TR LARGE 29 2 9CM. Affected 9:06:03 hand 96 % O2 saturation. 9:07:21 HR=60 bpm, OEZN=236/84 mmhg, SpO2=95.0 %, Resp=19 B/min, Pain=0, Kacy=10, Hayes=2 9:07:42 Case End 9:07:43 Sterile dressing applied to site 9:07:43 No case complications noted. 9:07:44 Cine recording checked. 9:07:46 Bedside Report will be given. 9:07:47 Contrast Scanned 9:07:48 Verbal Stimulation=2 Physical Stimulation=2 Airway=2 Respiration=2 TOTAL=8. (0=absent, 1=l imited, 2=present) 9:07:55 A Left Heart Cath was performed. 9:11:41 Vitals capture stopped. End Study - Contrast Media Used In Study Contrast Total Opened (mL) Total Used (mL) Total Wasted (mL) Omnipaque 65 65 0 End Study - Maximum Contrast Load Max Contrast Load (mL) 456.6 End Study - Radiation Exposure Fluoro Time (minutes) 6.1 End Study - Patient Disposition Complications Transferred To Interventional Outcome No Physiological Chemist Holding No attempt made
--- NOTE | 2017-03-17 09:16 | CATHPROC ---
[facility] HIS Report Study Information Study Number Admission Scheduled Start Study Start [id number] Mar 17 2017 6:31AM 03/17/2017 Mar 17 2017 8:08AM [place] [facility] Cardiac Catheterization Admit Source Facility Department Other [facility] - Physical Therapist Clinic Director Physician and Clinical Staff Initial Abdoul Silva Consumer Education Specialist Rebecca Razo,NEISHA Other cathlab, cathlab Recorder Jaziel Ivory RCIS(BS) Scrub Cheyenne Mendez RCIS TECH2 Procedures Performed Procedure Location (Site) Vessel Name Coronary Angiograms LCA Left Coronary Coronary Angiograms RCA Right Coronary L Heart Cath Equipment Time Ballet Soloist Description Size Mfg Part Number Used/Scraped TRANSDUCER, TRUWAVE [id number] 08:08 FREDERICK BARRIENTOS * Used W/STOCKCOCK *[id number] 534-518T *[id number] 534-521T *[id number] 08:08 [employer] PACK, CCL CUSTOM * Used *[id number] 08:08 [employer] SUPPORT, ARTERIAL ADULT 07704 *[id number] Used BAND, RADIAL COMPRESSION TR [id number] 09:06 [employer] MEDICAL 29CM Used LARGE 29 *[id number] 08:08 [employer] WIRE, EXCHANGE 260CM 3MMJ 260CM Used *[id number] 08:08 NAMIC MANIFOLD, 4 PORT * Used *[id number] 08:08 [employer] OMNIPAQUE, 350 MG, 150ML 150ML [id number] Used [id number] 08:08 [employer] MEDICAL BLANKET,WARM AIR CCL * Used *[id number] SHEATH, FR6 TRANSRADIAL [id number] 08:08 [employer] MEDICAL FR 6 Used SLENDER 10CM *[id number] History: Current Medications Medication Dosage/Unit Route Frequency Last Date/Time Taken Statins (any) ASA History: Allergies Allergy Reaction No Known Allergies History: Risk Factors Family History of Hypertension Dyslipidemia Previous [place] Previous Heart Failure Premature CAD Yes No No No No Prior Valve Prior PCI Prior CABG Surgery No No No Cerebrovascular Peripheral Artery Chronic Lung On Dialysis Diabetes Disease Disease Disease No Yes No No No History: Symptoms/Diagnosis Selection Items SOB History: Stress Tests Stress or Imaging Studies Performed Yes Standard Exercise Stress Test No Stress Echo No Stress Test SPECT Stress Test SPECT Result Stress Test SPECT Ischemia Risk/Extent Yes Positive Intermediate Stress Test CMR No Cardiac CTA Coronary Calcium Score No No History: Other Disease Selection Items HTN History: Other Current Smoker No Labs Hgb (g/dl) Hct (%) WBC (l/cumm) 11.60-17.00 35.00-51.00 4.00-11.00 15.2 45 10.5 Glucose (mg/dl) BUN (mg/dl) Creatinine (mg/dl) BUN:Creatinine (1:x) 74.00-106.00 7.00-18.00 0.50-1.30 10.00-20.00 101 19 1.0 19 Na (meq/l) K (meq/l) 136.00-145.00 3.50-5.10 139 4.5 INR (PTT:PT) 0.90-1.10 1 CPK-MB (ng/ML) 0.50-3.60 Not Drawn Medication Medication Total Dose (Bolus/Oral) Medication Total Dosage/Unit 1% XYLOCAINE 3 mL FENTANYL 25 mcg RADIAL COCKTAIL 5 mL (Bolus) VERSED 0.5 mg Medications (Bolus/Oral) Medication Time Given Dosage/Unit Administered By Reason VERSED 03/17/2017 8:35:02 AM 0.5 mg Rebecca Razo 0.5 mg VERSED given in lab by Rebecca Razo, NEISHA in Left Forearm via Peripheral IV. Ordered by Abdoul Marshall FENTANYL 03/17/2017 8:36:03 AM 25 mcg Rebecca Razo 25 mcg FENTANYL given in lab by Rebecca Razo, NEISHA in Left Forearm via Peripheral IV. Ordered by Abdoul Weeks 1% XYLOCAINE 03/17/2017 8:38:57 AM 3 mL Abdoul Bacon 3 mL 1% XYLOCAINE given in lab by Abdoul Bacon in Right Radial via Subcutaneous. Ordered by Abdoul Guevara Ntg 200mcg Verapamil 2.5mg Heparin RADIAL COCKTAIL 03/17/2017 8:40:56 AM 5 mL (Bolus) Abdoul Bacon 3000U 5 mL (Bolus) RADIAL COCKTAIL given in lab by Abdoul Bacon in Right Radial via Radial. Using [S olution Name]. Ordered by Abdoul Bacon Reason: Ntg 200mcg Verapamil 2.5mg Heparin 3700U. Medication (Drip) Medication Time Given Dosage/Unit Concentration/Unit Diluent (ml) Solution IV Solutions 03/17/2017 8:11:17 AM 0 mL (IV) 500 NaCl .9 Patient arrived on IV Solutions in Left Forearm via Peripheral IV. Pump/Drip Flow = 20 ml/hr using Na Cl .9. Ordered by Abdoul Bacon Initial Case Assessment Cardiovascular HR Rhythm NIBP Chest Pain 79 nsr 145/94 0 Edema Present Skin color Skin None Normal Warm Dry Circulatory - Right Pulses Dorsalis Pedis Femoral Radial 2 2 2 Scale (0,1,2,3,4,d) Circulatory - Left Pulses Dorsalis Pedis Femoral Radial 2 2 Scale (0,1,2,3,4,d) Neurological State Oriented to time-place- Alert Moves all extremities person Respiration - General Respiration Rate SpO2 (%) (B/min) 15 98 Final Case Assessment Cardiovascular HR Rhythm NIBP Chest Pain 63 nsr 146/75 0 Edema Present Skin color Skin None Normal Warm Dry Circulatory - Right Pulses Dorsalis Pedis Femoral Radial 2 2 2 Scale (0,1,2,3,4,d) Circulatory - Left Pulses Dorsalis Pedis Femoral Radial 2 2 Scale (0,1,2,3,4,d) Neurological State Oriented to time-place- Alert Moves all extremities person Respiration - General Respiration Rate SpO2 (%) (B/min) 15 98 Chronological Log Time Study Chronological Log 8:11:05 Patient arrived via Bed. 8:11:06 Patient Name, D.O.B, / Armband Verified By R.N. 8:11:06 Consent signed by the physician and the patient and verified by the Physical Therapist Clinic Director staff. 8:11:07 Pre-op and post- op instructions given; patient acknowledges understanding of instructions. 8:11:07 Verbal Stimulation=2 Physical Stimulation=2 Airway=2 Respiration=2 TOTAL=8. (0=absent, 1=li mited, 2=present) 8:11:08 Presedation assessment performed by Physical Therapist Clinic Director RN. 8:11:09 Allens test performed on the right radial and ulnar artery- POSITIVE. 8:11:10 Immediate Presedation assesment performed by physician. 8:11:13 Patient has been NPO for More than 6Hrs. 8:11:14 Skin Breakdown- none per patient 8:11:14 Patient Warmer Placed on the Table. 8:11:16 Malissa Prominences Protected 8:11:17 A # 20 IV was noted in the Forearm (left). Grade = 0 Patient arrived on IV Solutions in Left Forearm via Peripheral IV. Pump/Drip Flow = 20 ml/hr us ing NaCl .9. Ordered by 8:11:17 Abdoul Bacon 8:11:18 History and physical on the chart or being dictated. Vitals capture started with the following parameters, Patient=Adult, Interval=5 min, Initial Pr syebmd=893 mmHg, 8:15:59 Deflation Rate=5 mmHg, Cuff placed on Left Arm Assessment: Initial Case, HR=79 BPM, Rhythm=nsr, SFCE=955/94 mmhg, Chest Pain=0, Edema=None, Col or=Normal, Skin = Warm, Dry Right Pulses: Abram Ped=2, Femoral=2, Radial=2 8:16:05 Left Pulses: Abram Ped=2, Femoral=2 Neurological: State=Alert, Ox3, CRABTREE Respiration: Resp=15 B/min, SpO2=98 % 8:16:38 HR=77 bpm, XELH=196/94 mmhg, SpO2=96.0 %, Resp=16 B/min, Pain=0, Kacy=10, Hayes=2 8:17:48 Reference ECG taken 8:22:20 HR=78 bpm, EEWP=397/96 mmhg, SpO2=98.0 %, Resp=16 B/min, Pain=0, Kacy=10, Hayes=2 8:23:27 Right Radial and groin(s) prepped with 2% chlorhexidine, and draped after a 3 min. waiting t gordon. 8:27:35 HR=69 bpm, AXIN=301/83 mmhg, SpO2=99.0 %, Resp=19 B/min 8:30:08 Pressure channel 1 zeroed. 8:31:43 HR=78 bpm, HHSS=341/108 mmhg, SpO2=99.0 %, Resp=19 B/min, Pain=0, Kacy=10, Hayes=2 8:32:43 MD arrived. 8:33:42 Contrast Scanned 8:33:43 Immediate Presedation assesment performed by physician. 8:35:02 0.5 mg VERSED given in lab by Rebecca Razo, RN in Left Forearm via Peripheral IV. Ordered by Abdoul Bacon 25 mcg FENTANYL given in lab by Rebecca Razo, RN in Left Forearm via Peripheral IV. Ordered Abdoul Cardenas 8:36:03 G. Time Out. Correct patient, correct procedure, correct physician, power injector not loaded with contrast with surgical 8:37:17 team present. Time Out Concurred by MD and individual staff in procedure. 8:37:23 HR=79 bpm, OONW=083/96 mmhg, SpO2=98.0 %, Resp=16 B/min, Pain=0, Kacy=10, Hayes=2 8:37:31 Case Start 8:37:35 Verbal Stimulation=2 Physical Stimulation=2 Airway=2 Respiration=2 TOTAL=8. (0=absent, 1=sanchez ited, 2=present) 3 mL 1% XYLOCAINE given in lab by Abdoul Bacon in Right Radial via Subcutaneous. Ordered by Jordi, 8:38:57 Abdoul Potter. 8:40:35 Access site was Right Radial Artery. A SHEATH, FR6 TRANSRADIAL SLENDER 10CM FR 6 was advanced into the Radial (right) using the Roberto beavers 8:40:43 technique. 5 mL (Bolus) RADIAL COCKTAIL given in lab by Abdoul Bacon in Right Radial via Radial. Usi ng [Solution Name]. 8:40:56 Ordered by Abdoul Bacon. Reason: Ntg 200mcg Verapamil 2.5mg Heparin 3700U. A JR 4.0 INFINITI CATHETER FR 5 was advanced over a wire. OMNIPAQUE, 350 MG, 150ML 150ML was use d for 8:41:10 injections. 8:41:45 HR=78 bpm, LXKO=342/96 mmhg, SpO2=99.0 %, Resp=17 B/min, Pain=0, Kacy=10, Hayes=2 Recorded Pressure: LV, HR=87, Condition=Condition 1 8:43:18 (Left Ventricle) LV 149/3/5 Recorded Pressure: LV, Ao, HR=79, Condition=Condition 1 8:43:33 (Left Ventricle) LV 148/2/5, (Aorta) Ao 148/70/102 Recorded Pressure: Ao, HR=75, Condition=Condition 1 8:44:01 (Aorta) Ao 128/53/93 8:45:40 The RCA was injected and visualized at various angles. OMNIPAQUE, 350 MG, 150ML 150ML used. 8:46:40 HR=76 bpm, VDJD=200/83 mmhg, SpO2=93.0 %, Resp=17 B/min, Pain=0, Kacy=10, Hayes=2 After removing the current catheter a JL 3.5 INFINITI CATHETER FR 5 was advanced over a WIRE, EX CHANGE 260CM 8:47:27 3MMJ 260CM. 8:49:45 The LCA was injected and visualized at various angles. OMNIPAQUE, 350 MG, 150ML 150ML used. 8:51:43 HR=68 bpm, GBPQ=587/78 mmhg, SpO2=94.0 %, Resp=18 B/min, Pain=0, Kacy=10, Hayes=2 8:56:46 HR=66 bpm, HUAT=508/74 mmhg, SpO2=94.0 %, Resp=16 B/min, Pain=0, Kacy=10, Hayes=2 9:01:45 HR=78 bpm, BODZ=772/75 mmhg, SpO2=95.0 %, Resp=14 B/min, Pain=0, Kacy=10, Hayes=2 9:05:38 Catheter was removed 9:05:40 Case End Assessment: Final Case, HR=63 BPM, Rhythm=nsr, JRHZ=263/75 mmhg, Chest Pain=0, Edema=None, Col or=Normal, Skin = Warm, Dry Right Pulses: Abram Ped=2, Femoral=2, Radial=2 9:05:44 Left Pulses: Abram Ped=2, Femoral=2 Neurological: State=Alert, Ox3, CRABTREE Respiration: Resp=15 B/min, SpO2=98 % 9:06:01 Catheter(s) removed without difficulty Radial Compression Device Used. 10 mLs of air placed in BAND, RADIAL COMPRESSION TR LARGE 29 2 9CM. Affected 9:06:03 hand 96 % O2 saturation. 9:07:21 HR=60 bpm, UBEO=298/84 mmhg, SpO2=95.0 %, Resp=19 B/min, Pain=0, Kacy=10, Hayes=2 9:07:42 Case End 9:07:43 Sterile dressing applied to site 9:07:43 No case complications noted. 9:07:44 Cine recording checked. 9:07:46 Bedside Report will be given. 9:07:47 Contrast Scanned 9:07:48 Verbal Stimulation=2 Physical Stimulation=2 Airway=2 Respiration=2 TOTAL=8. (0=absent, 1=l imited, 2=present) 9:07:55 A Left Heart Cath was performed. 9:11:41 Vitals capture stopped. End Study - Contrast Media Used In Study Contrast Total Opened (mL) Total Used (mL) Total Wasted (mL) Omnipaque 65 65 0 End Study - Maximum Contrast Load Max Contrast Load (mL) 456.6 End Study - Radiation Exposure Fluoro Time (minutes) 6.1 End Study - Patient Disposition Complications Transferred To Interventional Outcome No Physical Therapist Clinic Director Holding No attempt made
--- NOTE | 2017-03-17 09:16 | CATHPROC ---
[facility] HIS Report Study Information Study Number Admission Scheduled Start Study Start [id number] Mar 17 2017 6:31AM 03/17/2017 Mar 17 2017 8:08AM [place] [facility] Cardiac Catheterization Admit Source Facility Department Other [facility] - Software Build Engineer Physician and Clinical Staff Initial Abdoul Silva Area Field Manager Rebecca Razo,NEISHA Other cathlab, cathlab Recorder Jaziel Ivory RCIS(BS) Scrub Cheyenne Mendez RCIS TECH2 Procedures Performed Procedure Location (Site) Vessel Name Coronary Angiograms LCA Left Coronary Coronary Angiograms RCA Right Coronary L Heart Cath Equipment Time Slide Forming Machine Tender Description Size Mfg Part Number Used/Scraped TRANSDUCER, TRUWAVE [id number] 08:08 FREDERICK BARRIENTOS * Used W/STOCKCOCK *[id number] *[id number] [id number] *[id number] 08:08 [employer] PACK, CCL CUSTOM * Used *[id number] 08:08 [employer] SUPPORT, ARTERIAL ADULT [id number] *[id number] Used BAND, RADIAL COMPRESSION TR [id number] 09:06 [employer] MEDICAL 29CM Used LARGE 29 *[id number] 08:08 LIFE INTERACTION WIRE, EXCHANGE 260CM 3MMJ 260CM Used *[id number] 08:08 NAMIC MANIFOLD, 4 PORT * Used *[id number] 08:08 [employer]ED OMNIPAQUE, 350 MG, 150ML 150ML [id number] Used [id number] 08:08 SHARPE MEDICAL BLANKET,WARM AIR CCL * Used *[id number] SHEATH, FR6 TRANSRADIAL [id number] 08:08 [employer] MEDICAL FR 6 Used SLENDER 10CM *[id number] History: Current Medications Medication Dosage/Unit Route Frequency Last Date/Time Taken Statins (any) ASA History: Allergies Allergy Reaction No Known Allergies History: Risk Factors Family History of Hypertension Dyslipidemia Previous OH Previous Heart Failure Premature CAD Yes No No No No Prior Valve Prior PCI Prior CABG Surgery No No No Cerebrovascular Peripheral Artery Chronic Lung On Dialysis Diabetes Disease Disease Disease No Yes No No No History: Symptoms/Diagnosis Selection Items SOB History: Stress Tests Stress or Imaging Studies Performed Yes Standard Exercise Stress Test No Stress Echo No Stress Test SPECT Stress Test SPECT Result Stress Test SPECT Ischemia Risk/Extent Yes Positive Intermediate Stress Test CMR No Cardiac CTA Coronary Calcium Score No No History: Other Disease Selection Items HTN History: Other Current Smoker No Labs Hgb (g/dl) Hct (%) WBC (l/cumm) 11.60-17.00 35.00-51.00 4.00-11.00 15.2 45 10.5 Glucose (mg/dl) BUN (mg/dl) Creatinine (mg/dl) BUN:Creatinine (1:x) 74.00-106.00 7.00-18.00 0.50-1.30 10.00-20.00 101 19 1.0 19 Na (meq/l) K (meq/l) 136.00-145.00 3.50-5.10 139 4.5 INR (PTT:PT) 0.90-1.10 1 CPK-MB (ng/ML) 0.50-3.60 Not Drawn Medication Medication Total Dose (Bolus/Oral) Medication Total Dosage/Unit 1% XYLOCAINE 3 mL FENTANYL 25 mcg RADIAL COCKTAIL 5 mL (Bolus) VERSED 0.5 mg Medications (Bolus/Oral) Medication Time Given Dosage/Unit Administered By Reason VERSED 03/17/2017 8:35:02 AM 0.5 mg Rebecca Razo 0.5 mg VERSED given in lab by Rebecca Razo, NEISHA in Left Forearm via Peripheral IV. Ordered by Abdoul Marshall FENTANYL 03/17/2017 8:36:03 AM 25 mcg Rebecca Razo 25 mcg FENTANYL given in lab by Rebecca Razo, NEISHA in Left Forearm via Peripheral IV. Ordered by Abdoul Weeks 1% XYLOCAINE 03/17/2017 8:38:57 AM 3 mL Abdoul Bacon 3 mL 1% XYLOCAINE given in lab by Abdoul Bacon in Right Radial via Subcutaneous. Ordered by Abdoul Guevara Ntg 200mcg Verapamil 2.5mg Heparin RADIAL COCKTAIL 03/17/2017 8:40:56 AM 5 mL (Bolus) Abdoul Bacon 3000U 5 mL (Bolus) RADIAL COCKTAIL given in lab by Abdoul Bacon in Right Radial via Radial. Using [S olution Name]. Ordered by Abdoul Bacon Reason: Ntg 200mcg Verapamil 2.5mg Heparin 3700U. Medication (Drip) Medication Time Given Dosage/Unit Concentration/Unit Diluent (ml) Solution IV Solutions 03/17/2017 8:11:17 AM 0 mL (IV) 500 NaCl .9 Patient arrived on IV Solutions in Left Forearm via Peripheral IV. Pump/Drip Flow = 20 ml/hr using Na Cl .9. Ordered by Abdoul Bacon Initial Case Assessment Cardiovascular HR Rhythm NIBP Chest Pain 79 nsr 145/94 0 Edema Present Skin color Skin None Normal Warm Dry Circulatory - Right Pulses Dorsalis Pedis Femoral Radial 2 2 2 Scale (0,1,2,3,4,d) Circulatory - Left Pulses Dorsalis Pedis Femoral Radial 2 2 Scale (0,1,2,3,4,d) Neurological State Oriented to time-place- Alert Moves all extremities person Respiration - General Respiration Rate SpO2 (%) (B/min) 15 98 Final Case Assessment Cardiovascular HR Rhythm NIBP Chest Pain 63 nsr 146/75 0 Edema Present Skin color Skin None Normal Warm Dry Circulatory - Right Pulses Dorsalis Pedis Femoral Radial 2 2 2 Scale (0,1,2,3,4,d) Circulatory - Left Pulses Dorsalis Pedis Femoral Radial 2 2 Scale (0,1,2,3,4,d) Neurological State Oriented to time-place- Alert Moves all extremities person Respiration - General Respiration Rate SpO2 (%) (B/min) 15 98 Chronological Log Time Study Chronological Log 8:11:05 Patient arrived via Bed. 8:11:06 Patient Name, D.O.B, / Armband Verified By R.N. 8:11:06 Consent signed by the physician and the patient and verified by the Software Build Engineer staff. 8:11:07 Pre-op and post- op instructions given; patient acknowledges understanding of instructions. 8:11:07 Verbal Stimulation=2 Physical Stimulation=2 Airway=2 Respiration=2 TOTAL=8. (0=absent, 1=li mited, 2=present) 8:11:08 Presedation assessment performed by Software Build Engineer RN. 8:11:09 Allens test performed on the right radial and ulnar artery- POSITIVE. 8:11:10 Immediate Presedation assesment performed by physician. 8:11:13 Patient has been NPO for More than 6Hrs. 8:11:14 Skin Breakdown- none per patient 8:11:14 Patient Warmer Placed on the Table. 8:11:16 Malissa Prominences Protected 8:11:17 A # 20 IV was noted in the Forearm (left). Grade = 0 Patient arrived on IV Solutions in Left Forearm via Peripheral IV. Pump/Drip Flow = 20 ml/hr us ing NaCl .9. Ordered by 8:11:17 Abdoul Bacon 8:11:18 History and physical on the chart or being dictated. Vitals capture started with the following parameters, Patient=Adult, Interval=5 min, Initial Pr uafaqq=782 mmHg, 8:15:59 Deflation Rate=5 mmHg, Cuff placed on Left Arm Assessment: Initial Case, HR=79 BPM, Rhythm=nsr, RBPQ=218/94 mmhg, Chest Pain=0, Edema=None, Col or=Normal, Skin = Warm, Dry Right Pulses: Abram Ped=2, Femoral=2, Radial=2 8:16:05 Left Pulses: Abram Ped=2, Femoral=2 Neurological: State=Alert, Ox3, CRABTREE Respiration: Resp=15 B/min, SpO2=98 % 8:16:38 HR=77 bpm, ASHI=458/94 mmhg, SpO2=96.0 %, Resp=16 B/min, Pain=0, Kacy=10, Hayes=2 8:17:48 Reference ECG taken 8:22:20 HR=78 bpm, NYYK=840/96 mmhg, SpO2=98.0 %, Resp=16 B/min, Pain=0, Kacy=10, Hayes=2 8:23:27 Right Radial and groin(s) prepped with 2% chlorhexidine, and draped after a 3 min. waiting t gordon. 8:27:35 HR=69 bpm, CTRJ=515/83 mmhg, SpO2=99.0 %, Resp=19 B/min 8:30:08 Pressure channel 1 zeroed. 8:31:43 HR=78 bpm, XHJN=519/108 mmhg, SpO2=99.0 %, Resp=19 B/min, Pain=0, Kacy=10, Hayes=2 8:32:43 MD arrived. 8:33:42 Contrast Scanned 8:33:43 Immediate Presedation assesment performed by physician. 8:35:02 0.5 mg VERSED given in lab by Rebecca Razo, RN in Left Forearm via Peripheral IV. Ordered by Abdoul Bacon 25 mcg FENTANYL given in lab by Rebecca Razo, RN in Left Forearm via Peripheral IV. Ordered Abdoul Cardenas 8:36:03 G. Time Out. Correct patient, correct procedure, correct physician, power injector not loaded with contrast with surgical 8:37:17 team present. Time Out Concurred by MD and individual staff in procedure. 8:37:23 HR=79 bpm, MWBF=044/96 mmhg, SpO2=98.0 %, Resp=16 B/min, Pain=0, Kacy=10, Hayes=2 8:37:31 Case Start 8:37:35 Verbal Stimulation=2 Physical Stimulation=2 Airway=2 Respiration=2 TOTAL=8. (0=absent, 1=sanchez ited, 2=present) 3 mL 1% XYLOCAINE given in lab by Abdoul Bacon in Right Radial via Subcutaneous. Ordered by Jordi, 8:38:57 Abdoul Potter. 8:40:35 Access site was Right Radial Artery. A SHEATH, FR6 TRANSRADIAL SLENDER 10CM FR 6 was advanced into the Radial (right) using the Roberto beavers 8:40:43 technique. 5 mL (Bolus) RADIAL COCKTAIL given in lab by Abdoul Bacon in Right Radial via Radial. Usi ng [Solution Name]. 8:40:56 Ordered by Abdoul Bacon. Reason: Ntg 200mcg Verapamil 2.5mg Heparin 3700U. A JR 4.0 INFINITI CATHETER FR 5 was advanced over a wire. OMNIPAQUE, 350 MG, 150ML 150ML was use d for 8:41:10 injections. 8:41:45 HR=78 bpm, RGZQ=749/96 mmhg, SpO2=99.0 %, Resp=17 B/min, Pain=0, Kacy=10, Hayes=2 Recorded Pressure: LV, HR=87, Condition=Condition 1 8:43:18 (Left Ventricle) LV 149/3/5 Recorded Pressure: LV, Ao, HR=79, Condition=Condition 1 8:43:33 (Left Ventricle) LV 148/2/5, (Aorta) Ao 148/70/102 Recorded Pressure: Ao, HR=75, Condition=Condition 1 8:44:01 (Aorta) Ao 128/53/93 8:45:40 The RCA was injected and visualized at various angles. OMNIPAQUE, 350 MG, 150ML 150ML used. 8:46:40 HR=76 bpm, TXYS=342/83 mmhg, SpO2=93.0 %, Resp=17 B/min, Pain=0, Kacy=10, Hayes=2 After removing the current catheter a JL 3.5 INFINITI CATHETER FR 5 was advanced over a WIRE, EX CHANGE 260CM 8:47:27 3MMJ 260CM. 8:49:45 The LCA was injected and visualized at various angles. OMNIPAQUE, 350 MG, 150ML 150ML used. 8:51:43 HR=68 bpm, SMDR=374/78 mmhg, SpO2=94.0 %, Resp=18 B/min, Pain=0, Kacy=10, Hayes=2 8:56:46 HR=66 bpm, QMCR=084/74 mmhg, SpO2=94.0 %, Resp=16 B/min, Pain=0, Kacy=10, Hayes=2 9:01:45 HR=78 bpm, SASL=299/75 mmhg, SpO2=95.0 %, Resp=14 B/min, Pain=0, Kacy=10, Hayes=2 9:05:38 Catheter was removed 9:05:40 Case End Assessment: Final Case, HR=63 BPM, Rhythm=nsr, UZXV=518/75 mmhg, Chest Pain=0, Edema=None, Col or=Normal, Skin = Warm, Dry Right Pulses: Abram Ped=2, Femoral=2, Radial=2 9:05:44 Left Pulses: Abram Ped=2, Femoral=2 Neurological: State=Alert, Ox3, CRABTREE Respiration: Resp=15 B/min, SpO2=98 % 9:06:01 Catheter(s) removed without difficulty Radial Compression Device Used. 10 mLs of air placed in BAND, RADIAL COMPRESSION TR LARGE 29 2 9CM. Affected 9:06:03 hand 96 % O2 saturation. 9:07:21 HR=60 bpm, AMMJ=231/84 mmhg, SpO2=95.0 %, Resp=19 B/min, Pain=0, Kacy=10, Hayes=2 9:07:42 Case End 9:07:43 Sterile dressing applied to site 9:07:43 No case complications noted. 9:07:44 Cine recording checked. 9:07:46 Bedside Report will be given. 9:07:47 Contrast Scanned 9:07:48 Verbal Stimulation=2 Physical Stimulation=2 Airway=2 Respiration=2 TOTAL=8. (0=absent, 1=l imited, 2=present) 9:07:55 A Left Heart Cath was performed. 9:11:41 Vitals capture stopped. End Study - Contrast Media Used In Study Contrast Total Opened (mL) Total Used (mL) Total Wasted (mL) Omnipaque 65 65 0 End Study - Maximum Contrast Load Max Contrast Load (mL) 456.6 End Study - Radiation Exposure Fluoro Time (minutes) 6.1 End Study - Patient Disposition Complications Transferred To Interventional Outcome No Software Build Engineer Holding No attempt made
[2017-03-17] MEDS ORDERED: NITR1SUB3 SL (09:25)
[2017-03-17] MEDS ORDERED: ISOS30TA3 PO (09:25)
[2017-03-17 11:00] LABS: TOTAL BILIRUBIN ADULT 0.8 MG/DL (0.2-1.0); TOTAL PROTEIN 7.5 GM/DL (6.4-8.2)
[2017-03-17 11:03] LABS: ALBUMIN 3.5 GM/DL (3.4-5.0); DIRECT BILIRUBIN ADULT 0.1 MG/DL (0.0-0.2); INDIRECT BILIRUBIN 0.7 MG/DL (0.0-0.8)
--- NOTE | 2017-03-17 12:11 | RADRPT ---
EXAM DATE/TIME: 03/17/2017 10:59 [facility] COMPARISON: No previous studies available for comparison. INDICATIONS : Preop cardiac surgery. MEDICAL HISTORY : Hypercholesterolemia. Hypertension. [place] palsy. Dyspnea. Blood dyscrasias. Skin carcinoma. SURGICAL HISTORY : Back surgery. ENCOUNTER: Initial ACUITY: 1 day PAIN SCORE: 0/10 LOCATION: Bilateral legs. GREATER SAPHENOUS VEIN THIGH: PROXIMAL: Right 6 mm Left 4 mm MID: Right 3 mm Left 2 mm DISTAL: Right 3 mm Left 2 mm CALF: PROXIMAL: Right 3 mm Left 3 mm MID: Right 3 mm Left 2 mm DISTAL: Right 2 mm Left 2 mm FINDINGS: The venous system of the lower extremities are patent by color Doppler imaging. Measurements of the leg veins (in mm) are listed above. CONCLUSION: Venous mapping study as described. Eyal Shrestha MD on March 17, 2017 at 12:09 Board Certified Radiologist. This report was verified electronically.
--- NOTE | 2017-03-17 12:24 | RADRPT ---
EXAM DATE/TIME: 03/17/2017 10:50 [facility] COMPARISON: No previous studies available for comparison. INDICATIONS : Preop cardiac surgery. MEDICAL HISTORY : Hypercholesterolemia. Hypertension. [place] palsy. Dyspnea. Blood dyscrasias. Skin carcinoma. SURGICAL HISTORY : Back surgery. ENCOUNTER: Initial ACUITY: 1 day PAIN SCORE: 0/10 LOCATION: Bilateral legs. TECHNIQUE: Venous ultrasound of the left and right leg was performed from the inguinal ligament to the proximal calf. Real-time, color Doppler and spectral tracing, compression and augmentation techniques were us ed. FINDINGS: RIGHT LEG: There is normal compressibility of the deep venous system from the inguinal region to the proximal ca lf. No echogenic clot is seen in the lumen of the common femoral, femoral, popliteal, and posterior tibial veins. There is a normal response of the venous system to proximal and distal augmentation an d respiration. LEFT LEG: There is normal compressibility of the deep venous system from the inguinal region to the proximal ca lf. No echogenic clot is seen in the lumen of the common femoral, femoral, popliteal, and posterior tibial veins. There is a normal response of the venous system to proximal and distal augmentation an d respiration. CONCLUSION: Negative exam. No sonographic or Doppler findings of deep venous thrombosis. Ashvin Higuera MD on March 17, 2017 at 12:22 Board Certified Radiologist. This report was verified electronically.
--- NOTE | 2017-03-17 12:45 | PD.CAR.PN ---
CVT Progress Note Subjective/Hospital Course: sts data discussed with pt RISK SCORES About the STS Risk Calculator Procedure: CAB Only Risk of Mortality: 3.576% Morbidity or Mortality: 21.132% Long Length of Stay: 11.325% Short Length of Stay: 19.139% Permanent Stroke: 3.095% Prolonged Ventilation: 13.102% DSW Infection: 0.351% Renal Failure: 4.36% Reoperation: 8.025% Objective: Vital Signs Date Time Temp Pulse Resp B/P (MAP) Pulse Ox O2 Delivery O2 Flow Rate FiO2 03/17/17 09:23 97 Room Air 03/17/17 07:10 97.8 74 16 210/80 (123) 99 Labs: Laboratory Tests Test 03/17/17 07:00 White Blood Count 10.5 TH/MM3 (4.0-11.0) Red Blood Count 4.73 MIL/MM3 (4.50-5.90) Hemoglobin 15.2 GM/DL (13.0-17.0) Hematocrit 45.0 % (39.0-51.0) Mean Corpuscular Volume 95.2 FL (80.0-100.0) Mean Corpuscular Hemoglobin 32.2 PG (27.0-34.0) Mean Corpuscular Hemoglobin Concent 33.8 % (32.0-36.0) Red Cell Distribution Width 21.8 % (11.6-17.2) Platelet Count 519 TH/MM3 (150-450) Mean Platelet Volume 9.0 FL (7.0-11.0) Neutrophils (%) (Auto) 75.0 % (16.0-70.0) Lymphocytes (%) (Auto) 17.0 % (9.0-44.0) Monocytes (%) (Auto) 6.0 % (0.0-8.0) Eosinophils (%) (Auto) 1.6 % (0.0-4.0) Basophils (%) (Auto) 0.4 % (0.0-2.0) Neutrophils # (Auto) 7.9 TH/MM3 (1.8-7.7) Lymphocytes # (Auto) 1.8 TH/MM3 (1.0-4.8) Monocytes # (Auto) 0.6 TH/MM3 (0-0.9) Eosinophils # (Auto) 0.2 TH/MM3 (0-0.4) Basophils # (Auto) 0.0 TH/MM3 (0-0.2) CBC Comment DIFF FINAL Differential Comment Prothrombin Time 11.3 SEC (9.8-11.6) Prothromb Time International Ratio 1.0 RATIO Activated Partial Thromboplast Time 28.2 SEC (24.3-30.1) Blood Urea Nitrogen 19 MG/DL (7-18) Creatinine 1.03 MG/DL (0.60-1.30) Random Glucose 101 MG/DL (74-106) Calcium Level 8.6 MG/DL (8.5-10.1) Sodium Level 139 MEQ/L (136-145) Potassium Level 4.5 MEQ/L (3.5-5.1) Chloride Level 106 MEQ/L (98-107) Carbon Dioxide Level 25.7 MEQ/L (21.0-32.0) Anion Gap 7 MEQ/L (5-15) Estimat Glomerular Filtration Rate 69 ML/MIN (>89) Total Bilirubin 0.8 MG/DL (0.2-1.0) Direct Bilirubin 0.1 MG/DL (0.0-0.2) Indirect Bilirubin 0.7 MG/DL (0.0-0.8) Aspartate Amino Transf (AST/SGOT) 29 U/L (15-37) Alanine Aminotransferase (ALT/SGPT) 31 U/L (12-78) Alkaline Phosphatase 71 U/L (45-117) Total Protein 7.5 GM/DL (6.4-8.2) Albumin 3.5 GM/DL (3.4-5.0) Result Diagram: 03/17/1769903/17/17699 Raya Dennis Mar 17, 2017 12:45
--- NOTE | 2017-03-17 13:02 | MB ---
cc: ARLENE HEREDIA DATE OF CONSULTATION: 03/17/2017 DATE OF : 1930 HISTORY OF PRESENT ILLNESS This is an 86-year-old male that has been followed by Dr. Pelaez for a history of atrial fibrillation which was diagnosed in December of this year and treated with Eliquis. He had been complaining of some shortness of breath with exertion off and on for the past few months. He normally gets the shortness of breath when he is going from his house to the mailbox and back. However, he is very active and rides his bike 10 miles a day and does not notice any discomfort or symptoms of shortness of breath or chest pain, no paroxysmal nocturnal dyspnea, no orthopnea, no leg cramps or edema. He underwent a nuclear stress test at Dr. Pelaez's office which demonstrated a moderate size area of anterior reversibility consistent with ischemia. The calculated ejection fraction on that was 35-40%. I did obtain an echocardiogram from December 2016 and at that time the EF showed 50-55%, normal right ventricular size and function, left atrial size normal. There was some mild mitral regurgitation, mild aortic insufficiency, mild tricuspid regurgitation. A 2-D echo is now pending as per ordered by Dr. Bacon to reevaluate the ejection fraction. PAST MEDICAL HISTORY 1. Atrial fibrillation. 2. History of cerebral vascular accident in December 2016, followed by Dr. Lock at that time. There was a small acute left occipital lobe stroke at that time. He has since been on Eliquis, not only for the atrial fibrillation but also for the CVA. 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 3. Thrombocytosis. He continues with hydroxyurea for the high platelet count. 4. History of Moses's palsy. 5. Hyperlipidemia. 6. Chronic myeloproliferative disorder. PAST SURGICAL HISTORY 1. Back surgery. 2. Cardiac cath. ALLERGIES No known allergies. MEDICATIONS Home meds include: 1. Aspirin 81 mg. 2. Eliquis 5 mg b.i.d. 3. Lipitor 10 mg p.o. daily. 4. Hydroxyurea 500, daily. 5. Amlodipine 5 mg p.o. daily. FAMILY HISTORY Mother of unknown cause. Father from complications of tuberculosis at age 56. The patient is ; this is his second marriage. He has two children from his previous marriage. No tobacco. Drinks one shot of Scotch whiskey per day. Retired as a DJ and also from the . REVIEW OF SYSTEMS GENERAL: In general no night sweats, fever, heat or cold intolerance. SKIN: No psoriasis, itching or hives. HEENT: No blurred vision or hearing loss. RESPIRATORY: Some shortness of breath with exertion. CARDIOVASCULAR: No chest pain. No paroxysmal nocturnal dyspnea. No orthopnea. GASTROINTESTINAL: No diarrhea or vomiting. GENITOURINARY: No burning, frequency, urgency. DENTAL SERVICE TECHNICIAN: Positive for history of prior CVA with minimal residual, some peripheral disturbance in the right eye. ENDOCRINE: No hypothyroidism or diabetes mellitus. PHYSICAL EXAMINATION VITAL SIGNS: Blood pressure was elevated at 210/80, heart rate in the 70s, afebrile. O2 sat 97% on room air. GENERAL: Patient is awake, alert, in no acute distress. HEENT: Head is normocephalic, atraumatic. Pupils equal and reactive. Oral mucosa pink and moist. He does have upper and lower dentures. NECK: Supple. No JVD. HEART: Heart sounds S1, S2, regular rate and rhythm. No audible rubs, murmurs or gallops. LUNGS: Clear to auscultation. No wheezes, rales or rhonchi. ABDOMEN: Soft, nontender. No masses or organomegaly. EXTREMITIES: No cyanosis, clubbing or edema. LABORATORY Hemoglobin 15, hematocrit 45, white cell count 10, platelet count 519. Sodium 139, potassium 4.5, BUN 19, creatinine 1.03. Hemoglobin A1c is pending. INR today is 1.0. Urinalysis is pending. IMAGING He had a recent carotid ultrasound in December 2016 which showed moderate visible plaque bilaterally without evidence of hemodynamic stenosis. IMPRESSION An 86-year-old male relatively active with recent shortness of breath, underwent a stress test which was positive for moderate anterior reversibility consistent with ischemia. He is status post heart catheterization by Dr. Bacon with 70% left main, proximal LAD 90%, diagonal 20%, circumflex 50%, RCA 30%. The ejection fraction per the stress test was 35%. His echo back in December was 50-55% and he has a new echo pending prior to his discharge today. PLAN The cardiac cath films will be evaluated by Dr. Arlene Heredia and evaluated for possible coronary artery bypass graft x1-2 to the LAD and possible circumflex. The patient has a history of a CVA in the past where he has been on Eliquis and also chronic atrial fibrillation that will need to be held prior to his surgery. He also has a history of chronic myeloproliferative disorder and is followed by Dr. Donovan. Further planning as per Dr. Arlene Heredia. Dictated by: Brenna Dennis HOTEL CASINO FLOORPERSON-C MD SYED Puente/NICANOR /10:52 AM /12:53 PM
[2017-03-17 13:50] LABS: BILIRUBIN, URINE NEG (NEG); BLOOD, URINE NEG (NEG); GLUCOSE,URINE NEG (NEG); KETONE, URINE NEG (NEG); NITRITE,URINE NEG (NEG); URINE COLOR LIGHT-YELLOW (YELLW/STRAW); URINE LEUKOCYTE ESTERASE NEG (NEG)
--- NOTE | 2017-03-17 14:47 | RADRPT ---
EXAM DATE/TIME: 03/17/2017 13:58 [facility] COMPARISON: No previous studies available for comparison. INDICATIONS : Evaluate for pneumonia, pneumothorax, or communicable disease. Pre op CABG. MEDICAL HISTORY : None. SURGICAL HISTORY : None. ENCOUNTER: Initial ACUITY: 1 day PAIN SCORE: 0/10 LOCATION: Bilateral chest FINDINGS: The lungs are symmetrically aerated. There is a questionable opacity in the right upper lung measuri ng [address] thorax is pending. The heart is upper limits normal size. Both hemidiaphragms remai n fairly well delineated. No focal infiltrates. Osseous structures are grossly intact. No evidence of pneumothorax. CONCLUSION: Faint, questionable, opacity in the right upper lung measuring [address] for further anthony cterization. Iggy Keating MD on March 17, 2017 at 14:44 Board Certified Radiologist. This report was verified electronically.
--- NOTE | 2017-03-17 15:30 | RADRPT ---
EXAM DATE/TIME: 03/17/2017 14:09 [facility] COMPARISON: CHEST PA & LAT, March 17, 2017, 13:58. INDICATIONS : Evaluate for aortic calcifications, pre op CABG. RADIATION DOSE: 6.83 CTDIvol (mGy) MEDICAL HISTORY : Cardiovascular disease. Hypertension. [place] palsy. SURGICAL HISTORY : None. ENCOUNTER: Initial ACUITY: 1 day PAIN SCALE: 0/10 LOCATION: Bilateral chest TECHNIQUE: Volumetric scanning of the chest was performed. Using automated exposure control and adjustment of t he mA and/or kV according to patient size, radiation dose was kept as low as reasonably achievable to obtain optimal diagnostic quality images. DICOM format image data is available electronically for r eview and comparison. Follow-up recommendations for detected pulmonary nodules are based at a minimum on nodule size and pa tient risk factors according to Fleischner Society Guidelines. FINDINGS: LUNGS: There is no consolidation or pneumothorax. No concerning pulmonary nodule is visualized. Chest x-ra y performed earlier today demonstrated a faint opacity projected over the upper right chest measuring 12 mm; there is no lung nodule or opacity. There is a small density in the anterior right chest wal l, probably related to clothing which would account for the x-ray finding. Minimal bibasilar atelect asis the costophrenic angles. PLEURAE: There is no pleural thickening or pleural effusion. MEDIASTINUM: No gross adenopathy for noncontrast technique. Coronary artery calcifications. There is wall calcif ication aortic arch and descending aorta. Ascending aorta measures 3.7 cm in AP dimension. AXILLAE: Within normal limits. No lymphadenopathy. MUSCULOSKELETAL: Within normal limits for patient age. MISCELLANEOUS: The visualized upper abdominal organs demonstrate no acute abnormality. CONCLUSION: 1. Normal dimensions the thoracic aorta. 2. No pulmonary opacities seen. The density seen on chest x-ray earlier today most probably is relat ed to clothing. Iggy Keating MD on March 17, 2017 at 15:14 Board Certified Radiologist. This report was verified electronically.
[2017-03-17 15:39] LABS: HEMOGLOBIN A1C 5.8 % (4.3-6.0)
--- NOTE | 2017-03-17 20:33 | ECHRPT ---
Indication: MV, CAD CONCLUSIONS Normal left ventricular size. Wall thickness is normal. The left ventricular systolic function is mildly reduced with an estimated ejection fraction of 45% The left atrial size is mildly dilated. [id number] mitral valve regurgitation. Aortic valve sclerosis is present. Mild aortic valve regurgitation. There is mild to moderate tricuspid valve regurgitation. The estimated pulmonary arterial pressure is 68 mmHg. BP: 210 / 80 HR: Rhythm: Atrial fibrillation, Atrial flut ter, PVCs MEASUREMENTS (Male / Female) Normal Values Technical Quality:Fair 2D ECHO LV Diastolic Diameter PLAX 5.2 cm 4.2 - 5.9 / 3.9 - 5.3 cm LV Systolic Diameter PLAX 4.4 cm IVS Diastolic Thickness 1.0 cm 0.6 - 1.0 / 0.6 - 0.9 cm LVPW Diastolic Thickness 1.0 cm 0.6 - 1.0 / 0.6 - 0.9 cm LV Relative Wall Thickness 0.4 LVOT Diameter 2.2 cm Aortic Root Diameter 3.3 cm LA Systolic Diameter LX 4.5 cm 3.0 - 4.0 / 2.7 - 3.8 cm M-MODE AV Cusp Separation MM 1.8 cm DOPPLER AV Peak Velocity 110.0 cm/s AV Peak Gradient 4.8 mmHg AV Mean Gradient 2.7 mmHg AV Velocity Time Integral 21.4 cm LVOT Peak Velocity 49.3 cm/s LVOT Peak Gradient 1.0 mmHg LVOT Velocity Time Integral 9.3 cm AV Area Cont Eq vti 1.7 cm AV Area Cont Eq pk 1.7 cm Mitral E Point Velocity 87.9 cm/s LV E' Lateral Velocity 12.8 cm/s Mitral E to LV E' Lateral Ratio 6.9 LV E' Septal Velocity 6.8 cm/s Mitral E to LV E' Septal Ratio 12.9 TR Peak Velocity 381.0 cm/s TR Peak Gradient 58.1 mmHg Right Atrial Pressure 10.0 mmHg Pulmonary Artery Systolic Pressu 68.1 mmHg Right Ventricular Systolic Press 68.1 mmHg PV Peak Velocity 67.4 cm/s PV Peak Gradient 1.8 mmHg FINDINGS LEFT VENTRICLE Normal left ventricular size. Wall thickness is normal. The left ventricular systolic function is mildly reduced with an estimated ejection fraction of 45%. RIGHT VENTRICLE Normal right ventricular size and systolic function. LEFT ATRIUM The left atrial size is mildly dilated. RIGHT ATRIUM The right atrial size is normal. ATRIAL SEPTUM Normal atrial septal thickness without atrial level shunting by limited color doppler interrogation. AORTA The aortic root and proximal ascending aorta are normal in size on limited imaging. MITRAL VALVE [id number] mitral valve regurgitation. AORTIC VALVE Aortic valve sclerosis is present. Mild aortic valve regurgitation. TRICUSPID VALVE There is mild to moderate tricuspid valve regurgitation. The estimated pulmonary arterial pressure is 68.1 mmHg. PULMONARY VALVE No pulmonary valve regurgitation or stenosis. VESSELS The inferior vena cava is normal in size. PERICARDIUM No pericardial effusion. Linda Mistry MD, FACC (Electronically Signed) Final Date:17 March 2017 20:32
--- NOTE | 2017-03-17 21:09 | EKG ---
Date Performed: 03/17/2017 Time Performed: 07:18:38 PTAGE: 86 years EKG: Atrial fibrillation Left axis deviation IV conduction defect Lateral ST-T changes Abnormal ECG PREVIOUS TRACING : 12/26/2016 14.37 Compared to prior tracing no significant change DOCTOR: Linda Mistry Interpretating Date/Time 03/17/2017 21:08:39
--- NOTE | 2017-03-18 07:12 | MA ---
cc: ABDOUL NAVARRO DO DATE March 17, 2017. PROCEDURE Left heart catheterization, coronary angiogram, moderate sedation 30 minutes. PREPROCEDURE DIAGNOSIS Shortness of breath, abnormal stress test. POSTPROCEDURE DIAGNOSIS Multivessel coronary artery disease/left main disease. MEDICATIONS 1. Versed 0.5 mg. 2. Fentanyl 25 mcg. 3. Heparin 3700 units. 4. Nitro 200 mcg. 5. Verapamil 2.5 mg. CONTRAST USED 65 cc. FLUOROSCOPY 6.1 minutes MODERATE SEDATION 30 minutes ESTIMATED BLOOD LOSS 10 cc. PROCEDURAL SUMMARY Bubba Mcghee is a pleasant 86-year-old male who sees my partner Dr. Pelaez in the office and underwent stress testing. This was found to be abnormal and because of this he was recommended cardiac catheterization. The risks, benefits and alternatives were explained to him and he consented as such. He was brought to lab and prepped in the usual sterile fashion. The right radial artery was accessed using modified Seldinger technique and placement of a 5/6-[place] Slender Sheath. This was easily aspirated and flushed. A JR-4 was advanced over a J-wire to the ascending aorta and across the aortic valve for measurement of left ventricular pressure. This was pulled back across the aortic valve showing no significant gradient of aortic stenosis. JR-4 was used for selective angiography of the right coronary artery. This was exchanged out for a JL-3.5 which was used for selective angiography of the left coronary artery. The JL-3.5 was removed over a J-wire. A radial band was placed over the arteriotomy site for hemostasis. The patient left the Education Department Chair cardiovascularly stable. FINDINGS Left main short with diffuse 70% disease. It bifurcates into an LAD and circumflex. LAD normal-sized vessel with a 90% stenosis in the proximal portion with no other significant disease. He gives off one major diagonal with no significant disease. Left circumflex is a normal-sized vessel with a 50% ostial stenosis. Otherwise no significant disease. He gives off one major obtuse marginal which has mild tortuosity but no significant disease. RCA is a normal-sized vessel with a 30% lesion at the ostium but otherwise no significant disease. LVEDP 5. IMPRESSIONS 1. Shortness of breath. 2. Abnormal stress test. 3. Multivessel coronary artery disease/left main disease. RECOMMENDATIONS 1. Mr. Mcghee will undergo cardiothoracic surgery evaluation for possible coronary artery bypass grafting. 2. Since he is relatively asymptomatic other than his shortness of breath, I believe he can go home and come back electively for surgery. 3. He will be placed on Imdur as well as a nitro sublingual as needed. 4. He understands that if he has any increase in his symptoms or needs to use any nitroglycerin, that he will present back to the emergency room immediately and we will reevaluate the timing of surgery. Thank you for allowing me to see Bubba Mcghee. If there are any questions please do not hesitate to call. Abdoul Navarro DO VGP/SSB /12:24 AM /6:56 AM
--- NOTE | 2017-03-18 09:16 | RSPPFT ---
DATE OF PROCEDURE: 03/17/17 COMMENTS: Spirometry shows FVC of 2.6 at 92% of predicted, FEV1 of 1.9 at 89%, FEV1/FVC ratio is normal. Flow is normal at FEF 25, FEF 50 and FEF 25-75. Flow volume loop indicates a normal pattern. IMPRESSION: 1. Normal spirometry. 2. Post-bronchodilator study was not performed.
== END 2017-03-17 16:20 | disposition home or self-care (01) ==
LOC: HDOC 06:31 → HDIC 06:32 → HDOC 16:20
PROVIDERS: ATTEND Nuclear Medicine Nuclear Cardiology
DX: I25.10 Atherosclerotic heart disease of native coronary artery without angina pectoris (principal); I48.2 Chronic atrial fibrillation; I10 Essential (primary) hypertension; E78.5 Hyperlipidemia, unspecified; Z79.01 Long term (current) use of anticoagulants; Z79.82 Long term (current) use of aspirin; Z01.818 Encounter for other preprocedural examination
CPT/HCPCS: 71020; 71250; 80048; 80076; 81001; 83036; 85025; 85610; 85730; 86850; 86900; 86901; 87641; 93005; 93306; 93458; 93970; 93998; 94010; 99152; 99153; C1769; C1893; J1644; J2250; J3010; J7030; Q9967

== ENCOUNTER 2017-04-01 05:30 | Inpatient (IN) | payer OTHER, MEDICARE ==
[2017-04-01] VITALS (9 sets, daily range): BP systolic 100–125; BP diastolic 40–71; PULSE 64–84; RESP 15–18; TEMP 96.1–97.7; O2SAT 97–99
[~2017-04-01] VITALS: Ht 168.9 cm; Wt 93.8 kg
[~2017-04-01 05:30] MED LIST changes: +AMLO5TAB2 PO; +ASPI-516 CHEW; -ASPI81CH CHEW; +ISOS30TA3 PO; +NITR1SUB3 SL; -[UNRECOGNIZED DRUG - REMARK] PO
[2017-04-01] MEDS ORDERED: DEXTROSE 50% IN WATER 50 ML VIAL(D50) IV PUSH PRN ×2 (06:00→10:45)
[2017-04-01] MEDS ORDERED: INSULIN HUMAN REGULAR 1,000 UNITS/10 ML VIAL SQ PRN (06:00)
[2017-04-01] MEDS ORDERED: PAPAVERINE 60 MG-NITROGLYCERIN 100 MCG-DILTIAZEM 100 MG in NS 100 ML IRRIGATION SCH ×4 (06:00)
[2017-04-01] MEDS ORDERED: LACTATED RINGER'S 1000 ML IV PRN (06:00)
[2017-04-01] MEDS ORDERED: CEFAZOLIN 500 MG in NS IRR BTL 500 ML IRRIGATION SCH (06:00)
[2017-04-01] MEDS ORDERED: CHLORHEXIDINE GLUCONATE 4% SOLN 120 ML BTL TOPICAL SCH (06:00)
[2017-04-01] MEDS ORDERED: METOPROLOL TARTRATE 25 MG TAB PO SCH (06:00)
[2017-04-01] MEDS ORDERED: ceFAZolin 2 GM PREMIX 50 ML IV SCH (06:00)
[2017-04-01] MEDS ORDERED: POVIDONE IODINE 5% (ANTISEPSIS KIT) 4 APPLICATIONS EACH NARE PRN (06:00)
[2017-04-01] MEDS ORDERED: CHLORHEXIDINE GLUCONATE 2 % 1 PACK (2 CLOTHS) TOPICAL PRN (06:00)
[2017-04-01] MEDS ORDERED: SODIUM CHLORIDE 0.9% FLUSH 10 ML FLUSH IV FLUSH PRN ×2 (06:00)
[2017-04-01] MEDS ORDERED: SODIUM CHLORID 0.9% 500 ML IV PRN (06:00)
[2017-04-01] MEDS ORDERED: INSULIN REGULAR 100 UNITS in NS 100 ML IV PRN (06:00)
[2017-04-01] MEDS ORDERED: methylPREDNISolone SOD SUCC 125 MG/2 ML VIAL ONE (06:11)
[2017-04-01] MEDS ORDERED: HEPARIN SODIUM - SQ 10,000 UNITS/ML VIAL ONE (06:11)
[2017-04-01] MEDS ORDERED: VANCOMYCIN HCL 1000 MG VIAL ONE (06:11)
[2017-04-01] MEDS ORDERED: ceFAZolin 2 GM PREMIX 50 ML ONE (06:11)
[2017-04-01] MEDS ORDERED: HYDR500C PO (06:12)
[2017-04-01] MEDS ORDERED: CARDIOPLEGIC IRR 2,000 ML ONE (06:43)
[2017-04-01] MEDS ORDERED: POTASSIUM CHLORIDE 40 MEQ/20 ML VIAL ONE ×2 (06:44)
[2017-04-01] MEDS ORDERED: POTASSIUM CHLORIDE 20 MEQ/10 ML VIAL ONE (06:44)
[2017-04-01] MEDS ORDERED: SODIUM BICARBONATE 8.4% INJ 100 ML ONE (06:45)
[2017-04-01] MEDS ORDERED: MANNITOL INJ 100 ML ONE (06:45)
[2017-04-01] MEDS ORDERED: ALBUMIN 25% INJ 50 ML IV ONE (06:46)
[2017-04-01] MEDS ORDERED: TRANEXAMIC ACID INJ 1,000 MG/10 ML AMP ONE (07:48)
[2017-04-01] MEDS ORDERED: LACTATED RINGER'S 1000 ML INJ 500 ML IV PRN (10:44)
[2017-04-01] MEDS ORDERED: MAGNESIUM SULFATE INJ 2 GM in SODIUM CHLORIDE 0.9% INJ 100 ML IV PRN ×4 (10:45)
[2017-04-01] MEDS ORDERED: ALBUMIN 5% INJ 250 ML IV PRN (10:45)
[2017-04-01] MEDS ORDERED: CALCIUM CHLORIDE INJ 1 GM in SODIUM CHLORIDE 0.9% INJ 100 ML IV PRN (10:45)
[2017-04-01] MEDS ORDERED: RESP: RACEPINEPHRINE 2.25% 0.5 ML NEB NEB PRN (10:45)
[2017-04-01] MEDS ORDERED: RESP: ALBUTEROL 2.5 MG/IPRATROPIUM 0.5 MG NEB (PRN) NEB (10:45)
[2017-04-01] MEDS ORDERED: POTASSIUM CHLORIDE 20 MEQ CONTROLLED RELEASE TAB PO PRN ×2 (10:45)
[2017-04-01] MEDS ORDERED: hydrALAZINE HCL 20 MG/ML VIAL IV PUSH PRN (10:45)
[2017-04-01] MEDS ORDERED: INSULIN REGULAR (IV INFUSION) 100 UNITS in SODIUM CHLORIDE 0.9% INJ 99 ML IV PRN (10:45)
[2017-04-01] MEDS ORDERED: DEXMEDETOMIDINE INJ 200 MCG in SODIUM CHLORIDE 0.9% INJ 50 ML IV PRN (10:45)
[2017-04-01] MEDS ORDERED: CALCIUM CHLORIDE 10% 1 GRAM/10 ML VIAL IV PUSH PRN (10:45)
[2017-04-01] MEDS ORDERED: ACETAMINOPHEN 325 MG TAB PO PRN (10:45)
[2017-04-01] MEDS ORDERED: ACETAMINOPHEN 650 MG SUPP RECTAL PRN (10:45)
[2017-04-01] MEDS ORDERED: CLEVIDIPINE INJ 50 ML IV PRN (10:45)
[2017-04-01] MEDS ORDERED: POTASSIUM CHLOR 20 MEQ PREMIX 100 ML IV PRN ×3 (10:45)
[2017-04-01] MEDS ORDERED: METOPROLOL TARTRATE 5 MG/5 ML VIAL IV PUSH PRN (10:45)
[2017-04-01] MEDS ORDERED: SODIUM BICARBONATE 8.4% SOLN 50 MEQ/50 ML VIAL IV PUSH PRN ×2 (10:45)
[2017-04-01] MEDS ORDERED: Post-op Orders (for Pharmacy) MISC OTHER ONE (10:45)
[2017-04-01] MEDS ORDERED: ONDANSETRON HCL 4 MG/2 ML VIAL IV PUSH PRN (10:45)
[2017-04-01] MEDS ORDERED: DEXMEDETOMIDINE HCL 200 MCG/2 ML VIAL ONE (10:54)
[2017-04-01] MEDS ORDERED: ceFAZolin INJ 1,000 MG VIAL ONE (10:54)
--- NOTE | 2017-04-01 10:57 | PD.OP ---
cc: Clay Pelaez MD; Arlene Heredia MD; Abdoul Bacon DO Operative Report Date of Surgery: Apr 01, 2017 Preoperative Diagnosis: (1) Left main coronary artery disease (2) Positive cardiac stress test (3) Atrial fibrillation Postoperative Diagnosis: same Procedure: CABG x 2 CHRISTOPHER to LAD - good SVG to OM - fair Resection left atrial appendage EVH Anesthesia: Dr. Hodges Surgeon: Arlene Heredia Safety Net Maker(s): Evans HAHN Operation and Findings: The risks, benefits, complications, treatment options, and expected outcomes were discussed with the patient. The possibilities of reaction to medication, pulmonary aspiration, perforation of viscus, bleeding, recurrent infection, the need for additional procedures, failure to diagnose a condition, and creating a complication requiring transfusion or operation were discussed with the patient. The patient concurred with the proposed plan, giving informed consent. The site of surgery properly noted/marked. The patient was taken to Operating Room, identified as Bubba Mcghee and the procedure verified as CABG, EVH , ANNA MARIE. A Time Out was held and the above information confirmed. Standard monitoring lines and Lozano catheter were placed. General anesthesia was induced. The patient was prepped and draped in a sterile fashion. A median sternotomy was performed and electrocautery was used to obtain hemostasis. The left internal mammary artery was procured as a pedicle from the 7th rib to the 1st rib in the usual manner. Simultaneously left greater saphenous vein was procured from the left leg using a minimally invasive endoscopic technique. The vein was prepared for anastomosis and the leg wound was irrigated and closed in 2 layers. The pericardium was opened and a pericardial sling was created using interrupted 0 silk sutures. The patient was heparinized for cardiopulmonary bypass and the distal mammary pedicle was instrumented for anastomosis. The heart was instrumented for cardiopulmonary bypass in the usual manner. Antegrade blood cardioplegia was employed. The patient was placed on cardiopulmonary bypass. The left atrial appendage was resected using a surgical stapler and submitted to pathology. An aortic cross-clamp was applied and the heart was arrested using cold blood cardioplegia. Antegrade cardioplegia was administered after he each anastomosis. After adequate arrest, the 1st circumflex marginal artery was then opened with a Jeff Davis blade and found to be a 1 millimeter fair target. The OM1 artery was intramyocardial. Saphenous vein was approximated to the OM1 artery using a running 7 0 Prolene suture. The graft was measured for length and orientation and was suspended from the pericardium. The distal LAD was opened with a Jeff Davis blade and found to be a 1.5 millimeter good target. The left internal mammary artery was approximated to the LAD using a running 7 0 Prolene suture. The pedicle was attached to the epicardium using interrupted 5 0 silk suture. The patient was systemically rewarmed and received a hotshot dose of warm blood cardioplegia. The aorta was vented and the proximal anastomosis to the OM1 graft was accomplished using a running 5 0 Prolene suture after creating an aortotomy was a 5 millimeter punch. The cross-clamp was removed and all proximal and distal anastomoses were examined for hemostasis. The patient was weaned from cardiopulmonary bypass. Protamine was given. There was no adverse reaction. Decannulation was carried out without incident. Wound was checked for hemostasis which was obtained using electrocautery. A 36 Malay mediastinal and 32 Malay left pleural chest tubes were placed and secured to the skin with 0 silk suture. The sternum was closed with stainless steel wire. The fascia was closed with 1. PDS. The subcutaneous tissue was closed using a running 2-0 Vicryl suture. The skin was closed with 4-0 Monocryl. Sterile dressings were placed. At the end of the operation, all sponge, instruments, and needle counts were correct. The patient was transferred to the CVICU in stable condition. Findings: Small OM distal target XC: 38 min CPB: 57 min Drains: mediastinal x 1 pleural x 1 Complications: none Disposition: to CVICU in stable condition Arlene Heredia MD Apr 01, 2017 10:57
[2017-04-01] MEDS ORDERED: NITROGLYCERIN 50 MG/DEXTROSE 5% SOLN 250 ML BTL IV ONE (12:00)
[2017-04-01] MEDS ORDERED: PHENYLEPH/NS 1000 MCG/10 ML SYR IV ONE (12:00)
[2017-04-01] MEDS ORDERED: MAGNESIUM SULFATE 1 GM/2 ML VIAL IV ONE (12:00)
[2017-04-01] MEDS ORDERED: DOPamine INJ PREMIX 500 ML IV ONE (12:00)
[2017-04-01] MEDS ORDERED: PROTAMINE SULFATE 250 MG/25 ML VIAL IV ONE (12:00)
[2017-04-01] MEDS ORDERED: ePHEDrine/NS 25 MG/5 ML SYR IV ONE (12:00)
[2017-04-01] MEDS ORDERED: HEPARIN SODIUM - SQ 10,000 UNITS/ML VIAL OTHER ONE (12:00)
[2017-04-01] MEDS ORDERED: CALCIUM CHLORIDE 10% SOLN 1 GRAM/10 ML SYR IV ONE (12:00)
[2017-04-01] MEDS ORDERED: MIDAZOLAM HCL 2 MG/2 ML VIAL IV ONE (12:00)
[2017-04-01] MEDS ORDERED: ARTIFICIAL TEARS OPTH OINT 3.5 APPLIC/3.5 GM TUBO EACH EYE ONE (12:00)
[2017-04-01] MEDS ORDERED: PHENYLEPHRINE HCL 10 MG/ML VIAL IV ONE (12:00)
[2017-04-01] MEDS ORDERED: VECURONIUM BROMIDE 10 MG VIAL IV ONE (12:00)
[2017-04-01] MEDS ORDERED: fentaNYL CITRATE 2500 MCG/50 ML VIAL IV ONE (12:00)
[2017-04-01] MEDS: ACETAMINOPHEN 1000 MG/100 ML 100 ML IV SCH ×2 (12:55→17:54)
--- NOTE | 2017-04-01 13:02 | RADRPT ---
EXAM DATE/TIME: 04/01/2017 12:07 [facility] COMPARISON: CT THORAX W/O CONTRAST, March 17, 2017, 14:09. CHEST PA & LAT, March 17, 2017, 13:58. INDICATIONS : S/p cabg. MEDICAL HISTORY : Cardiovascular disease. Hypertension SURGICAL HISTORY : None. ENCOUNTER: Initial ACUITY: 1 day PAIN SCORE: Non-responsive. LOCATION: Bilateral chest FINDINGS: Patient is now status post median sternotomy. Mediastinal drain, left chest tube, endotracheal tube a nd nasogastric tube are all present. The endotracheal tube tip is at the thoracic inlet about 5 cm ab ove the mikal. The nasogastric tube tip is in the upper stomach, sidehole near the GE junction. Ther e is a right internal jugular central venous catheter with tip in the right atrium. Mild left base atelectasis noted and there are tiny bilateral pleural effusions. No pneumothorax seen . CONCLUSION: 1. Interim median sternotomy. 2. Lines and tubes as above. Sidehole of the nasogastric tube is at the GE junction. 3. Tiny bilateral pleural effusions and mild left base atelectasis. 4. No pneumothorax. Evans Duncan MD on April 01, 2017 at 12:58 Board Certified Radiologist. This report was verified electronically.
[2017-04-01] MEDS ORDERED: DOPamine 800 MG/D5W PREMIX 500 ML IV SCH (13:30)
--- NOTE | 2017-04-01 14:55 | PD.CAR.PN ---
CVT Progress Note Subjective/Hospital Course: 86-year-old male that has been followed by Dr. Pelaez for a history of atrial fibrillation which was diagnosed in December of this year and treated with Eliquis. He had been complaining of some shortness of breath with exertion off and on for the past few months. He normally gets the shortness of breath when he is going from his house to the mailbox and back. However, he is very active and rides his bike 10 miles a day and does not notice any discomfort or symptoms of shortness of breath or chest pain, no paroxysmal nocturnal dyspnea, no orthopnea, no leg cramps or edema. He underwent a nuclear stress test at Dr. Pelaez's office which demonstrated a moderate size area of anterior reversibility consistent with ischemia. The calculated ejection fraction on that was 35-40%. Repeat EF by echo 45%, status post heart catheterization by Dr. Bacon with 70% left main, proximal LAD 90%, diagonal 20%, circumflex 50%, RCA 30%. Now admitted for elective Coronary artery bypass grafting PAST MEDICAL HISTORY 1. Atrial fibrillation. History of cerebral vascular accident in December 2016, followed by Dr. Lock, There was a small acute left occipital lobe stroke at that time. He has since been on Eliquis, not only for the atrial fibrillation but also for the CVA. 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 3. Thrombocytosis. He continues with hydroxyurea for the high platelet count. History of Moses's palsy, Hyperlipidemia, Chronic myeloproliferative disorder. surgery 04/01 : CABG x 2, CHRISTOPHER to LAD - good, SVG to OM - fair, Resection left atrial appendage, EVH Objective: Vital Signs Date Time Temp Pulse Resp B/P (MAP) Pulse Ox O2 Delivery O2 Flow Rate FiO2 04/01/17 14:09 38 98/40 04/01/17 14:07 18 04/01/17 12:45 98 Nasal Cannula 4.00 04/01/17 12:40 98 Nasal Cannula 4 04/01/17 12:40 98 Nasal Cannula 4.00 04/01/17 12:19 96.5 04/01/17 12:17 64 04/01/17 12:10 97 Bi-Pap 50 04/01/17 12:08 50 04/01/17 12:02 96.5 72 15 100/40 (60) 97 04/01/17 11:45 99 50 04/01/17 06:21 97.7 68 20 128/80 (96 100 Raya Dennis Apr 01, 2017 14:55
--- NOTE | 2017-04-01 15:01 | HHI.FF ---
Face to Face Verification Diagnosis: (1) S/P CABG x 2 (2) Thrombocytopenia (3) CVA (cerebral infarction) (4) Thrombocytosis (5) Left main coronary artery disease (6) Atrial fibrillation Physical Therapy Order: Evaluate and Treat Home Health Nursing Order: Signs/symptoms of disease process Medication education-adverse effect Wound care and dressing changes Nursing assessment with vital signs Instructions: Heart and Vascular Surgery patients *Special attention to sternal dressing Mandatory frequency Assess and evaluation, 4 days in a row The next week 3X week 2 times a week for 4 weeks 1 time a week for 5 weeks Schedule Heart and Vascular patients for full 60 day certification period Initial visit Review Open Heart Surgery Discharge Instructions (Sternal precautions, Activity, Elastic hose, Incision care, Driving, Incentive spirometry, Smoking, [place], Work and other) Need Betadine to paint incision Medication reconciliation Importance of follow up care/ check on appointments Make calendar record temperature daily When to call [facility] nurse, review instructions, phone list Incentive Spirometry, demonstration Visit 1- Begin discharge instruction for patient family and/ or caregiver using teach back method- Signs and symptoms of infection Disease characteristics Medicines and side effects Foods and nutrition/ appetite Infection control/ hand washing/ hygiene Visit 2- Continue teaching Discharge instructions- include additional information on smoking cessation , sternal dressing (sternal vac) Visit 3- Continue teaching- Cough and deep breathing, incision monitoring. Choose my plate Visit 4- Continue teaching- Discuss limitations Discuss how they are feeling Discuss progress toward goals Remaining visits- continue teaching and monitoring PREVENA Single Use Negative Wound Therapy System Caregiver Instruction Sheet 1. A Prevena dressing system was applied to the chest incision during surgery , to promote wound healing. It works via a suction device (negative pressure wound therapy) to remove low to moderate levels of exudate (drainage) and infectious materials. We recommend that the device stay in place for up to seven days, from day of surgery. 2. Day of Surgery____04/01/17 Day of Removal ___04/08/17 3. The dressing should only be removed by a health manager medicare. Please arrange removal of device to coincide with Home Health visit and or with Nursing staff at Rehab 4. If skin reddening or irritation of skin occurs, or excessive drainage, please notify the Cardiovascular Surgeons office at [phone]. 5. Light showering is permissible; however the pump should be disconnected and placed in safe location, where it will not get wet. The dressing should not be exposed to direct spray or submerged in water. No bath tub / shower only. Ensure the end of the tubing attached to the dressing is facing down so that water does not enter the top of the tube. 6. To remove Prevena dressing: press purple button to turn off device / remove the suction. Then disconnect the tubing from the pump. The fixation strips should be stretched away from the skin and the dressing lifted at one corner and peeled back until it has been fully removed. 7. After removal, it is ok to shower daily using liquid dial soap and clean wash cloth, rinse and pat dry, and leave incision open to air dry. For any concerns regarding Prevena dressing, and or wounds, please contact Anca Patel, patient navigator at [phone] or notify the Cardiovascular Surgeons office at [phone]. Incentive spirometry Q1 hr x 10, while awake, also use acapella device hourly whole awake Sternal Breast Bone Precautions: NO pushing or pulling, ( pt must use sternal pillow to support chest with all activities and with coughing ( takes up to 3 months breast bone to heal ) Daily incision care: ok to shower daily, no tub bath. Wash all incisions with liquid dial soap, clean wash cloth to each site, rinse and pat dry. Observe for any signs of infection, such as drainage which is dark yellow, aggarwal, green or foul smelling. Immediately report to the surgeon any drainage from the chest incision, or legs, and for any abnormal drainage from the chest tube sites. Notify surgeon if any temp >101.5 degrees F. When specialty dressing removed/ or if you do not have one, continue to shower daily as above, then rinse and pat incision dry and paint with betadine daily x 5 days. Allow steri strips to fall off if you have any. Avoid lotions, creams, salves, oils, etc. for the first month Please see attached forms for additional instructions regarding post Open Heart specialty wound vacuum dressings. VLADIMIR or Prevena , Dressing to be removed by Nursing staff on __04/08/[address] Heredia patients , please obtain CBC, BMP, PA & Lat CXR in 2 weeks, results to Dr. Heredia ( prescription will be given) ( ) (Tele: [phone]) , F/U appointment: as per [place] instructions: PCP in 2 weeks, CV surgeon 2 weeks, Wig Comber 3-4 weeks For any questions regarding incisions/ dressing / meds / post op care or above Symptoms, Wednesday 8am-5pm Heart & Vascular Surgery Office ( Dr. Hernandez & Dr. Heredia), After Hours / Nights (5pm -8am) Weekends and Holidays Please call [facility] Card[facility] Unit (C[facility]) Charge Nurse I have seen patient Bubba Mcghee on 04/01/17. My clinical findings support the need for the requested home health care services because: Deconditioned w/ increased weakness I certify that my clinical findings support that this patient is homebound because: Post-op weakness Raya Dennis Apr 01, 2017 15:01
[2017-04-01] MEDS: RESP: ALBUTEROL 2.5 MG/IPRATROPIUM 0.5 MG NEB (SCH) NEB ×2 (16:33→21:27)
[2017-04-01] MEDS: ATORVASTATIN 10 MG TAB PO SCH (21:32)
[2017-04-01] MEDS: SODIUM CHLORIDE 0.9% FLUSH 10 ML FLUSH IV FLUSH SCH (21:33)
[2017-04-02] VITALS (16 sets, daily range): BP systolic 104–158; BP diastolic 45–76; PULSE 68–92; RESP 16–20; TEMP 97.8–98.4; O2SAT 92–98
[2017-04-02] MEDS: ACETAMINOPHEN 1000 MG/100 ML 100 ML IV SCH ×2 (01:00→06:21)
[2017-04-02] MEDS: RESP: ALBUTEROL 2.5 MG/IPRATROPIUM 0.5 MG NEB (SCH) NEB ×4 (03:40→20:29)
[2017-04-02 04:04] LABS: MEAN CELL VOLUME 98.7 FL (80.0-100.0); MEAN CORPUSCULAR HEMOGLOBIN 31.4 PG (27.0-34.0); MEAN CORPUSCULAR HGB CONC 31.8 % (32.0-36.0); PLATELET COUNT 419 TH/MM3 (150-450); RED BLOOD COUNT 4.16 MIL/MM3 (4.50-5.90); RED CELL DISTRIBUTION WIDTH 20.6 % (11.6-17.2); REVIEW FLAG FINAL; WHITE BLOOD COUNT 19.1 TH/MM3 (4.0-11.0)
[2017-04-02 04:27] LABS: BICARBONATE 23.7 MEQ/L (21.0-32.0); MAGNESIUM 2.3 MG/DL (1.5-2.5); POTASSIUM 4.5 MEQ/L (3.5-5.1)
--- NOTE | 2017-04-02 05:31 | RADRPT ---
EXAM DATE/TIME: 04/02/2017 05:02 [facility] COMPARISON: CHEST SINGLE AP, April 01, 2017, 12:07. INDICATIONS : Status post CABG. MEDICAL HISTORY : Cardiovascular disease. Hypertension. SURGICAL HISTORY : None. ENCOUNTER: Subsequent ACUITY: 2 days PAIN SCORE: Non-responsive. LOCATION: chest FINDINGS: The cardiac silhouette is normal in transverse diameter. Median sternotomy wires are present. A left chest tube is in place. There is no evidence of pneumothorax. There is left lower lobe atelectasis ve rsus pneumonia. Endotracheal tube has been removed CONCLUSION: 1. Postsurgical changes as above. There is no evidence of pneumothorax. Ventura Alvarado MD on April 02, 2017 at 5:28 Board Certified Radiologist. This report was verified electronically.
[2017-04-02] MEDS: PANTOPRAZOLE SOD 40 MG DELAYED RELEASE TAB PO SCH (05:41)
[2017-04-02] MEDS ORDERED: DEXTROSE 50% IN WATER 50 ML VIAL(D50) IV PUSH PRN ×2 (08:45→10:15)
[2017-04-02] MEDS ORDERED: GLUCAGON 1 MG/ML VIAL OTHER PRN ×2 (08:45→10:15)
[2017-04-02] MEDS ORDERED: SOD PHOSPHATE/SOD BIPHOSPHATE (ADULT) ENEMA 133ML RECTAL PRN (08:45)
[2017-04-02] MEDS ORDERED: BISACODYL 10 MG SUPP RECTAL PRN (08:45)
[2017-04-02] MEDS: ASPIRIN 81 MG CHEW TAB CHEW SCH (08:52)
[2017-04-02] MEDS: SODIUM CHLORIDE 0.9% FLUSH 10 ML FLUSH IV FLUSH SCH ×2 (08:52→21:52)
--- NOTE | 2017-04-02 09:12 | PD.CAR.PN ---
CVT Progress Note Subjective/Hospital Course: 86-year-old male that has been followed by Dr. Pelaez for a history of atrial fibrillation which was diagnosed in December of this year and treated with Eliquis. He had been complaining of some shortness of breath with exertion off and on for the past few months. He normally gets the shortness of breath when he is going from his house to the mailbox and back. However, he is very active and rides his bike 10 miles a day and does not notice any discomfort or symptoms of shortness of breath or chest pain, no paroxysmal nocturnal dyspnea, no orthopnea, no leg cramps or edema. He underwent a nuclear stress test at Dr. Pelaez's office which demonstrated a moderate size area of anterior reversibility consistent with ischemia. The calculated ejection fraction on that was 35-40%. Repeat EF by echo 45%, status post heart catheterization by Dr. Bacon with 70% left main, proximal LAD 90%, diagonal 20%, circumflex 50%, RCA 30%. Now admitted for elective Coronary artery bypass grafting PAST MEDICAL HISTORY 1. Atrial fibrillation. History of cerebral vascular accident in December 2016, followed by Dr. Lock, There was a small acute left occipital lobe stroke at that time. He has since been on Eliquis, not only for the atrial fibrillation but also for the CVA. 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 3. Thrombocytosis. He continues with hydroxyurea for the high platelet count. History of Moses's palsy, Hyperlipidemia, Chronic myeloproliferative disorder. surgery 04/01 : CABG x 2, CHRISTOPHER to LAD - good, SVG to OM - fair, Resection left atrial appendage, EVH 04/02 remains in afib, pt had episode of slow ventricular responese rate 38 rate now 60's was on dopamine short time last pm, now off will hold on starting BB, and diuresing , BP labile restart hydroxyurea will need to resume eliquis when chest tubes out on ASA, statin transfer to stepdown Objective: GENERAL: SKIN: Warm and dry. prevena dressing to chest , incision intact to left medial thigh HEAD: Normocephalic. EYES: No scleral icterus. No injection or drainage. NECK: Supple, trachea midline. No JVD or lymphadenopathy. CARDIOVASCULAR: Regular rate and rhythm without murmurs, gallops, or rubs. RESPIRATORY: Breath sounds equal bilaterally. No accessory muscle use. chest tube no air leak, to wall suction / drained 280cc/ 12 hrs GASTROINTESTINAL: Abdomen soft, non-tender, nondistended. MUSCULOSKELETAL: No cyanosis, or edema. BACK: Nontender without obvious deformity. No CVA tenderness. Vital Signs Date Time Temp Pulse Resp B/P (MAP) Pulse Ox O2 Delivery O2 Flow Rate FiO2 04/02/17 08:09 97 Nasal Cannula 3.00 04/02/17 07:21 71 04/02/17 07:20 97.8 71 18 117/55 (75) 97 Arterial Line 04/02/17 07:16 20 04/02/17 04:00 98.2 78 18 117/55 (75) 95 106/49 (68) 04/02/17 04:00 95 Nasal Cannula 3.00 04/02/17 04:00 78 04/02/17 00:00 97.9 68 20 108/53 (71) 97 104/45 (64) 04/02/17 00:00 97 Nasal Cannula 4.00 04/02/17 00:00 68 04/01/17 21:28 98 Nasal Cannula 4.00 04/01/17 20:00 98 Nasal Cannula 4.00 04/01/17 20:00 76 04/01/17 20:00 97.7 75 18 117/71 (86) 98 107/50 (69) 04/01/17 17:10 96.1 04/01/17 16:03 98 Nasal Cannula 5.00 04/01/17 15:03 96.1 82 18 125/61 (82) 99 04/01/17 15:03 84 04/01/17 14:09 38 98/40 04/01/17 12:45 98 Nasal Cannula 4.00 04/01/17 12:40 98 Nasal Cannula 4 04/01/17 12:40 98 Nasal Cannula 4.00 04/01/17 12:19 96.5 04/01/17 12:17 64 04/01/17 12:10 97 Bi-Pap 50 04/01/17 12:08 50 04/01/17 12:02 96.5 72 15 100/40 (60) 97 04/01/17 11:45 99 50 Labs: Laboratory Tests Test 04/02/17 03:25 White Blood Count 19.1 TH/MM3 (4.0-11.0) Red Blood Count 4.16 MIL/MM3 (4.50-5.90) Hemoglobin 13.1 GM/DL (13.0-17.0) Hematocrit 41.0 % (39.0-51.0) Mean Corpuscular Volume 98.7 FL (80.0-100.0) Mean Corpuscular Hemoglobin 31.4 PG (27.0-34.0) Mean Corpuscular Hemoglobin Concent 31.8 % (32.0-36.0) Red Cell Distribution Width 20.6 % (11.6-17.2) Platelet Count 419 TH/MM3 (150-450) Mean Platelet Volume 8.8 FL (7.0-11.0) Blood Urea Nitrogen 19 MG/DL (7-18) Creatinine 0.84 MG/DL (0.60-1.30) Random Glucose 141 MG/DL (74-106) Calcium Level 8.3 MG/DL (8.5-10.1) Magnesium Level 2.3 MG/DL (1.5-2.5) Sodium Level 139 MEQ/L (136-145) Potassium Level 4.5 MEQ/L (3.5-5.1) Chloride Level 107 MEQ/L (98-107) Carbon Dioxide Level 23.7 MEQ/L (21.0-32.0) Anion Gap 8 MEQ/L (5-15) Estimat Glomerular Filtration Rate 87 ML/MIN (>89) Result Diagram: 04/02/1732404/02/17324 Telemetry: afib (1) Left main coronary artery disease (2) S/P CABG x 2 Plan: ASA, statin OOB, ambulate pulm toileting nebs, ezpap acapella PT (3) Atrial fibrillation Plan: chronic, will hold on BB 2/2 slow ventricular response (4) Thrombocytosis Plan: resume hydroxyurea (5) CVA (cerebral infarction) Raya Dennis Apr 02, 2017 09:12
[2017-04-02] MEDS: MULTIVITAMINS/MINERALS THERAPEUTIC TAB PO SCH (09:40)
[2017-04-02] MEDS: MAGNESIUM HYDROXIDE SUSP 30 ML CUP PO SCH (09:40)
[2017-04-02] MEDS ORDERED: INSULIN ASPART SUPPLEMENTAL SCALE SQ SCH (10:00)
[2017-04-02] MEDS: INSULIN ASPART SUPPLEMENTAL SCALE SQ SCH ×3 (12:00→22:21)
[2017-04-02] MEDS: HYDROXYUREA 500 MG CAP PO SCH (12:35)
[2017-04-02] MEDS ORDERED: FUROSEMIDE 40 MG/4 ML VIAL IV PUSH ONE (15:45)
[2017-04-02] MEDS ORDERED: POTASSIUM CHLORIDE 20 MEQ CONTROLLED RELEASE TAB PO ONE (15:45)
--- NOTE | 2017-04-02 18:04 | EKG ---
Date Performed: 04/02/2017 Time Performed: 06:03:16 PTAGE: 86 years EKG: Sinus rhythm with frequent PVCs with 1st degree A-V block Left axis deviation PVCs Inferior and lateral ST elevat ion - possible early repolarization Lateral T wave changes are nonspecific Low QRS voltages in precor dial leads Abnormal ECG PREVIOUS TRACING : 03/17/2017 07.18 DOCTOR: Cassandra Mccoy Interpretating Date/Time 04/02/2017 18:01:39
[2017-04-02] MEDS: ACETAMINOPHEN/HYDROcodone 325 MG/5 MG TAB PO PRN (18:16)
[2017-04-02] MEDS: DOCUSATE SODIUM 100 MG CAP PO SCH (21:52)
[2017-04-02] MEDS: ATORVASTATIN 10 MG TAB PO SCH (21:53)
[2017-04-02] MEDS: SENNOSIDES 8.6 MG TAB PO SCH (21:53)
[2017-04-03] VITALS (25 sets, daily range): BP systolic 118–146; BP diastolic 57–74; PULSE 57–90; RESP 16–18; TEMP 97.8–98.3; O2SAT 93–96
[2017-04-03] MEDS: ACETAMINOPHEN/HYDROcodone 325 MG/5 MG TAB PO PRN ×2 (02:59→10:58)
[2017-04-03 05:10] LABS: AUTOMATED NEUTROPHIL # 13.4 TH/MM3 (1.8-7.7); HEMATOCRIT 34.9 % (39.0-51.0); HEMO FLAGS DIFF FINAL; LYMPH % 4.6 % (9.0-44.0); LYMPHOCYTE # 0.7 TH/MM3 (1.0-4.8); MEAN CELL VOLUME 97.8 FL (80.0-100.0); MEAN CORPUSCULAR HEMOGLOBIN 32.7 PG (27.0-34.0); MEAN CORPUSCULAR HGB CONC 33.5 % (32.0-36.0); MONO % 3.7 % (0.0-8.0); NEUT % 91.7 % (16.0-70.0); PLATELET COUNT 371 TH/MM3 (150-450); RED BLOOD COUNT 3.57 MIL/MM3 (4.50-5.90); RED CELL DISTRIBUTION WIDTH 20.6 % (11.6-17.2); WHITE BLOOD COUNT 14.6 TH/MM3 (4.0-11.0)
[2017-04-03 05:24] LABS: BICARBONATE 25.5 MEQ/L (21.0-32.0); MAGNESIUM 2.1 MG/DL (1.5-2.5); POTASSIUM 5.3 MEQ/L (3.5-5.1)
[2017-04-03] MEDS: PANTOPRAZOLE SOD 40 MG DELAYED RELEASE TAB PO SCH (05:42)
[2017-04-03] MEDS: INSULIN ASPART SUPPLEMENTAL SCALE SQ SCH ×4 (07:59→20:20)
[2017-04-03] MEDS: RESP: ALBUTEROL 2.5 MG/IPRATROPIUM 0.5 MG NEB (SCH) NEB (08:19)
--- NOTE | 2017-04-03 08:52 | PD.CAR.PN ---
CVT Progress Note CVT: POD #: 2 Subjective/Hospital Course: 86-year-old male that has been followed by Dr. Pelaez for a history of atrial fibrillation which was diagnosed in December of this year and treated with Eliquis. He had been complaining of some shortness of breath with exertion off and on for the past few months. He normally gets the shortness of breath when he is going from his house to the mailbox and back. However, he is very active and rides his bike 10 miles a day and does not notice any discomfort or symptoms of shortness of breath or chest pain, no paroxysmal nocturnal dyspnea, no orthopnea, no leg cramps or edema. He underwent a nuclear stress test at Dr. Pelaez's office which demonstrated a moderate size area of anterior reversibility consistent with ischemia. The calculated ejection fraction on that was 35-40%. Repeat EF by echo 45%, status post heart catheterization by Dr. Bacon with 70% left main, proximal LAD 90%, diagonal 20%, circumflex 50%, RCA 30%. Now admitted for elective Coronary artery bypass grafting PAST MEDICAL HISTORY 1. Atrial fibrillation. History of cerebral vascular accident in December 2016, followed by Dr. Lock, There was a small acute left occipital lobe stroke at that time. He has since been on Eliquis, not only for the atrial fibrillation but also for the CVA. 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 3. Thrombocytosis. He continues with hydroxyurea for the high platelet count. History of Moses's palsy, Hyperlipidemia, Chronic myeloproliferative disorder. surgery 04/01 : CABG x 2, CHRISTOPHER to LAD - good, SVG to OM - fair, Resection left atrial appendage, EVH 04/02 remains in afib, pt had episode of slow ventricular responese rate 38 rate now 60's was on dopamine short time last pm, now off will hold on starting BB, and diuresing , BP labile restart hydroxyurea will need to resume eliquis when chest tubes out on ASA, statin transfer to stepdown 04/03/17 Doing well, no complaints. In sinus rhythm Objective: Vital Signs Date Time Temp Pulse Resp B/P (MAP) Pulse Ox O2 Delivery O2 Flow Rate FiO2 04/03/17 08:21 96 04/03/17 06:00 77 04/03/17 05:00 89 04/03/17 04:15 16 11/11/17 04:00 85 04/03/17 03:00 98.3 90 16 146/74 (98) 94 04/03/17 03:00 88 04/03/17 02:00 84 04/03/17 01:00 86 04/03/17 00:00 84 04/02/17 23:00 86 04/02/17 23:00 98.1 87 16 158/73 (101) 95 04/02/17 22:00 92 04/02/17 21:00 86 04/02/17 20:29 92 21 04/02/17 20:00 84 04/02/17 19:00 98.1 87 18 155/75 (101) 94 04/02/17 19:00 84 04/02/17 18:00 87 04/02/17 15:55 87 04/02/17 15:55 95 Room Air 04/02/17 15:53 98.4 91 18 139/76 (97) 96 Manual Cuff/Auscultation 04/02/17 12:00 97 Nasal Cannula 2.00 04/02/17 11:21 98.2 75 18 109/46 (67) 97 04/02/17 11:00 87 04/02/17 09:30 98 Nasal Cannula 3.00 Labs: Laboratory Tests Test 04/03/17 04:40 White Blood Count 14.6 TH/MM3 (4.0-11.0) Red Blood Count 3.57 MIL/MM3 (4.50-5.90) Hemoglobin 11.7 GM/DL (13.0-17.0) Hematocrit 34.9 % (39.0-51.0) Mean Corpuscular Volume 97.8 FL (80.0-100.0) Mean Corpuscular Hemoglobin 32.7 PG (27.0-34.0) Mean Corpuscular Hemoglobin Concent 33.5 % (32.0-36.0) Red Cell Distribution Width 20.6 % (11.6-17.2) Platelet Count 371 TH/MM3 (150-450) Mean Platelet Volume 8.9 FL (7.0-11.0) Neutrophils (%) (Auto) 91.7 % (16.0-70.0) Lymphocytes (%) (Auto) 4.6 % (9.0-44.0) Monocytes (%) (Auto) 3.7 % (0.0-8.0) Eosinophils (%) (Auto) 0.0 % (0.0-4.0) Basophils (%) (Auto) 0.0 % (0.0-2.0) Neutrophils # (Auto) 13.4 TH/MM3 (1.8-7.7) Lymphocytes # (Auto) 0.7 TH/MM3 (1.0-4.8) Monocytes # (Auto) 0.5 TH/MM3 (0-0.9) Eosinophils # (Auto) 0.0 TH/MM3 (0-0.4) Basophils # (Auto) 0.0 TH/MM3 (0-0.2) CBC Comment DIFF FINAL Differential Comment Blood Urea Nitrogen 25 MG/DL (7-18) Creatinine 1.22 MG/DL (0.60-1.30) Random Glucose 139 MG/DL (74-106) Calcium Level 8.2 MG/DL (8.5-10.1) Magnesium Level 2.1 MG/DL (1.5-2.5) Sodium Level 135 MEQ/L (136-145) Potassium Level 5.3 MEQ/L (3.5-5.1) Chloride Level 102 MEQ/L (98-107) Carbon Dioxide Level 25.5 MEQ/L (21.0-32.0) Anion Gap 8 MEQ/L (5-15) Estimat Glomerular Filtration Rate 56 ML/MIN (>89) Result Diagram: 04/03/1743904/03/17439 Cardiovascular: RRR Telemetry: NSR with PVCs Pulmonary: CTA GI/: NABS, NT Incision: dry and intact CT: ~100ml over the past 4 hrs. Plan: Start BB Continue chest tubes one more day Encourage ambulation, up to chair Stim BM (1) Left main coronary artery disease (2) S/P CABG x 2 Plan: ASA, statin OOB, ambulate pulm toileting nebs, ezpap acapella PT (3) Atrial fibrillation Plan: chronic, will hold on BB 2/2 slow ventricular response (4) Thrombocytosis Plan: resume hydroxyurea (5) CVA (cerebral infarction) Arlene Heredia MD Apr 03, 2017 08:52
[2017-04-03] MEDS: SODIUM CHLORIDE 0.9% FLUSH 10 ML FLUSH IV FLUSH SCH ×2 (09:00→20:22)
[2017-04-03] MEDS ORDERED: PILL SPLITTER OTHER PRN (09:00)
[2017-04-03] MEDS: DOCUSATE SODIUM 100 MG CAP PO SCH ×2 (09:31→20:21)
[2017-04-03] MEDS: POLYETHYLENE GLYCOL 17 GM PKG PO SCH (09:31)
[2017-04-03] MEDS: MAGNESIUM HYDROXIDE SUSP 30 ML CUP PO SCH (09:31)
[2017-04-03] MEDS: MULTIVITAMINS/MINERALS THERAPEUTIC TAB PO SCH (09:31)
[2017-04-03] MEDS: ASPIRIN 81 MG CHEW TAB CHEW SCH (09:32)
[2017-04-03] MEDS: HYDROXYUREA 500 MG CAP PO SCH (09:33)
[2017-04-03] MEDS: METOPROLOL TARTRATE 25 MG TAB PO SCH ×2 (09:35→20:22)
[2017-04-03] MEDS ORDERED: INSULIN ASPART SUPPLEMENTAL SCALE SQ SCH ×2 (12:00)
[2017-04-03] MEDS: MAGNESIUM SULFATE 1 GM PREMIX 100 ML IV SCH ×2 (15:27→16:34)
[2017-04-03] MEDS ORDERED: METOPROLOL TARTRATE 5 MG/5 ML VIAL IV PUSH ONE (15:30)
[2017-04-03] MEDS: ATORVASTATIN 10 MG TAB PO SCH (20:22)
[2017-04-03] MEDS: SENNOSIDES 8.6 MG TAB PO SCH (20:22)
[2017-04-04] VITALS (23 sets, daily range): BP systolic 118–150; BP diastolic 52–62; PULSE 62–80; RESP 16–18; TEMP 97.8–98.7; O2SAT 93–96
[2017-04-04 05:21] LABS: AUTOMATED NEUTROPHIL # 8.6 TH/MM3 (1.8-7.7); BASOPHIL % 0.2 % (0.0-2.0); EOSINOPHIL % 0.3 % (0.0-4.0); HEMATOCRIT 34.5 % (39.0-51.0); HEMO FLAGS DIFF FINAL; LYMPH % 7.6 % (9.0-44.0); LYMPHOCYTE # 0.7 TH/MM3 (1.0-4.8); MEAN CELL VOLUME 98.7 FL (80.0-100.0); MEAN CORPUSCULAR HEMOGLOBIN 33.2 PG (27.0-34.0); MEAN CORPUSCULAR HGB CONC 33.7 % (32.0-36.0); MONO % 4.2 % (0.0-8.0); NEUT % 87.7 % (16.0-70.0); PLATELET COUNT 339 TH/MM3 (150-450); RED BLOOD COUNT 3.49 MIL/MM3 (4.50-5.90); RED CELL DISTRIBUTION WIDTH 20.6 % (11.6-17.2); WHITE BLOOD COUNT 9.7 TH/MM3 (4.0-11.0)
[2017-04-04] MEDS: PANTOPRAZOLE SOD 40 MG DELAYED RELEASE TAB PO SCH (05:22)
[2017-04-04 05:47] LABS: BICARBONATE 26.1 MEQ/L (21.0-32.0); POTASSIUM 4.9 MEQ/L (3.5-5.1)
[2017-04-04] MEDS: INSULIN ASPART SUPPLEMENTAL SCALE SQ SCH ×2 (07:44→11:29)
[2017-04-04] MEDS: POLYETHYLENE GLYCOL 17 GM PKG PO SCH (09:00)
[2017-04-04] MEDS: DOCUSATE SODIUM 100 MG CAP PO SCH ×2 (09:00→20:25)
[2017-04-04] MEDS: MAGNESIUM HYDROXIDE SUSP 30 ML CUP PO SCH (09:00)
[2017-04-04] MEDS: SODIUM CHLORIDE 0.9% FLUSH 10 ML FLUSH IV FLUSH SCH ×2 (09:00→20:25)
[2017-04-04] MEDS: MULTIVITAMINS/MINERALS THERAPEUTIC TAB PO SCH (09:24)
[2017-04-04] MEDS: ASPIRIN 81 MG CHEW TAB CHEW SCH (09:24)
[2017-04-04] MEDS: METOPROLOL TARTRATE 25 MG TAB PO SCH ×2 (09:25→20:25)
[2017-04-04] MEDS: HYDROXYUREA 500 MG CAP PO SCH (09:28)
--- NOTE | 2017-04-04 12:04 | PD.CAR.PN ---
CVT Progress Note CVT: POD #: 3 Subjective/Hospital Course: 86-year-old male that has been followed by Dr. Pelaez for a history of atrial fibrillation which was diagnosed in December of this year and treated with Eliquis. He had been complaining of some shortness of breath with exertion off and on for the past few months. He normally gets the shortness of breath when he is going from his house to the mailbox and back. However, he is very active and rides his bike 10 miles a day and does not notice any discomfort or symptoms of shortness of breath or chest pain, no paroxysmal nocturnal dyspnea, no orthopnea, no leg cramps or edema. He underwent a nuclear stress test at Dr. Pelaez's office which demonstrated a moderate size area of anterior reversibility consistent with ischemia. The calculated ejection fraction on that was 35-40%. Repeat EF by echo 45%, status post heart catheterization by Dr. Bacon with 70% left main, proximal LAD 90%, diagonal 20%, circumflex 50%, RCA 30%. Now admitted for elective Coronary artery bypass grafting PAST MEDICAL HISTORY 1. Atrial fibrillation. History of cerebral vascular accident in December 2016, followed by Dr. Lock, There was a small acute left occipital lobe stroke at that time. He has since been on Eliquis, not only for the atrial fibrillation but also for the CVA. 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 3. Thrombocytosis. He continues with hydroxyurea for the high platelet count. History of Moses's palsy, Hyperlipidemia, Chronic myeloproliferative disorder. surgery 04/01 : CABG x 2, CHRISTOPHER to LAD - good, SVG to OM - fair, Resection left atrial appendage, EVH 04/02 remains in afib, pt had episode of slow ventricular responese rate 38 rate now 60's was on dopamine short time last pm, now off will hold on starting BB, and diuresing , BP labile restart hydroxyurea will need to resume eliquis when chest tubes out on ASA, statin transfer to stepdown 04/03/17 Doing well, no complaints. In sinus rhythm 04/04/17 No complaints today. >400ml from chest tubes Back in chronic AFIB Objective: Vital Signs Date Time Temp Pulse Resp B/P (MAP) Pulse Ox O2 Delivery O2 Flow Rate FiO2 04/04/17 11:00 63 04/04/17 10:00 68 04/04/17 09:55 95 21 04/04/17 09:00 72 04/04/17 08:00 67 04/04/17 08:00 98.0 66 16 124/62 (82) 94 04/04/17 07:00 76 04/04/17 06:01 74 04/04/17 05:01 62 04/04/17 04:00 71 04/04/17 03:00 63 04/04/17 03:00 98.4 66 16 120/58 (78) 94 04/03/17 23:00 98.1 67 17 118/62 (80) 93 04/03/17 23:00 68 04/03/17 22:00 71 04/03/17 20:40 93 21 04/03/17 19:00 97.8 57 16 133/60 (84) 95 04/03/17 19:00 70 04/03/17 18:00 58 04/03/17 17:00 66 04/03/17 16:00 61 04/03/17 15:00 68 04/03/17 15:00 98.1 87 18 137/65 (89) 94 04/03/17 14:51 75 04/03/17 14:00 63 04/03/17 13:00 66 Labs: Laboratory Tests Test 04/04/17 04:45 White Blood Count 9.7 TH/MM3 (4.0-11.0) Red Blood Count 3.49 MIL/MM3 (4.50-5.90) Hemoglobin 11.6 GM/DL (13.0-17.0) Hematocrit 34.5 % (39.0-51.0) Mean Corpuscular Volume 98.7 FL (80.0-100.0) Mean Corpuscular Hemoglobin 33.2 PG (27.0-34.0) Mean Corpuscular Hemoglobin Concent 33.7 % (32.0-36.0) Red Cell Distribution Width 20.6 % (11.6-17.2) Platelet Count 339 TH/MM3 (150-450) Mean Platelet Volume 9.2 FL (7.0-11.0) Neutrophils (%) (Auto) 87.7 % (16.0-70.0) Lymphocytes (%) (Auto) 7.6 % (9.0-44.0) Monocytes (%) (Auto) 4.2 % (0.0-8.0) Eosinophils (%) (Auto) 0.3 % (0.0-4.0) Basophils (%) (Auto) 0.2 % (0.0-2.0) Neutrophils # (Auto) 8.6 TH/MM3 (1.8-7.7) Lymphocytes # (Auto) 0.7 TH/MM3 (1.0-4.8) Monocytes # (Auto) 0.4 TH/MM3 (0-0.9) Eosinophils # (Auto) 0.0 TH/MM3 (0-0.4) Basophils # (Auto) 0.0 TH/MM3 (0-0.2) CBC Comment DIFF FINAL Differential Comment Blood Urea Nitrogen 25 MG/DL (7-18) Creatinine 1.01 MG/DL (0.60-1.30) Random Glucose 117 MG/DL (74-106) Calcium Level 7.9 MG/DL (8.5-10.1) Sodium Level 134 MEQ/L (136-145) Potassium Level 4.9 MEQ/L (3.5-5.1) Chloride Level 100 MEQ/L (98-107) Carbon Dioxide Level 26.1 MEQ/L (21.0-32.0) Anion Gap 8 MEQ/L (5-15) Estimat Glomerular Filtration Rate 70 ML/MIN (>89) Result Diagram: 04/04/1744404/04/17444 Cardiovascular: IRR Telemetry: AFIB with PVCs Pulmonary: CTA GI/: NABS, NT Incision: dry and intact CT: 420ml/24hrs Plan: Diurese Encourage ambulation [place] to remove chest tubes in AM and discharge home (1) Left main coronary artery disease (2) S/P CABG x 2 Plan: ASA, statin OOB, ambulate pulm toileting nebs, ezpap acapella PT (3) Atrial fibrillation Plan: chronic, will hold on BB 2/2 slow ventricular response (4) Thrombocytosis Plan: resume hydroxyurea (5) CVA (cerebral infarction) Arlene Heredia MD Apr 04, 2017 12:03
[2017-04-04] MEDS ORDERED: diphenhydrAMINE HCL 50 MG CAP PO PRN (12:15)
[2017-04-04] MEDS: FUROSEMIDE 40 MG/4 ML VIAL IV PUSH SCH (17:15)
[2017-04-04] MEDS: SENNOSIDES 8.6 MG TAB PO SCH (20:25)
[2017-04-04] MEDS: ATORVASTATIN 10 MG TAB PO SCH (20:25)
[2017-04-05] VITALS (14 sets, daily range): BP systolic 98–133; BP diastolic 61–78; PULSE 52–102; RESP 18–20; TEMP 97.5–98.1; O2SAT 93–95
[2017-04-05] MEDS: PANTOPRAZOLE SOD 40 MG DELAYED RELEASE TAB PO SCH (05:56)
[2017-04-05] MEDS: POLYETHYLENE GLYCOL 17 GM PKG PO SCH (09:00)
[2017-04-05] MEDS: MAGNESIUM HYDROXIDE SUSP 30 ML CUP PO SCH (09:00)
[2017-04-05] MEDS: SODIUM CHLORIDE 0.9% FLUSH 10 ML FLUSH IV FLUSH SCH (09:28)
[2017-04-05] MEDS: FUROSEMIDE 40 MG/4 ML VIAL IV PUSH SCH (09:29)
[2017-04-05] MEDS: MULTIVITAMINS/MINERALS THERAPEUTIC TAB PO SCH (09:29)
[2017-04-05] MEDS: DOCUSATE SODIUM 100 MG CAP PO SCH (09:29)
[2017-04-05] MEDS: METOPROLOL TARTRATE 25 MG TAB PO SCH (09:31)
[2017-04-05] MEDS: ASPIRIN 81 MG CHEW TAB CHEW SCH (09:31)
[2017-04-05] MEDS: HYDROXYUREA 500 MG CAP PO SCH (09:31)
--- NOTE | 2017-04-05 12:14 | RADRPT ---
EXAM DATE/TIME: 04/05/2017 11:41 [facility] COMPARISON: CHEST SINGLE AP, April 02, 2017, 5:02. INDICATIONS : Removal of chest tube; Evaluate for pneumothorax. MEDICAL HISTORY : Cardiovascular disease. Hypertension SURGICAL HISTORY : CABG. ENCOUNTER: Subsequent ACUITY: 1 day PAIN SCORE: 0/10 LOCATION: Bilateral chest FINDINGS: Cardiomegaly is stable. Previous chest tubes have been removed. No pneumothorax. Mild basal atelectas is. Previous median sternotomy. Previous right central line has also been removed. CONCLUSION: 1. Removal of previous right central line and chest tubes. No pneumothorax. Mild basilar atelectasis. Stable elevation left hemidiaphragm. Gilberto Blankenship MD on April 05, 2017 at 12:12 Board Certified Radiologist. This report was verified electronically.
[2017-04-05] MEDS ORDERED: THERM PO (12:16)
[2017-04-05] MEDS ORDERED: POTA10CA PO (12:16)
[2017-04-05] MEDS ORDERED: DOCU1CAP39 PO (12:16)
[2017-04-05] MEDS ORDERED: HYDR-3516 PO (12:16)
[2017-04-05] MEDS ORDERED: METO25TA3 PO (12:16)
[2017-04-05] MEDS ORDERED: FURO1TAB60 PO (12:16)
[2017-04-05] MEDS ORDERED: COMMODE 3-IN-11 MIS (12:34)
--- NOTE | 2017-04-05 12:34 | HHI.DS ---
Discharge Summary Admission Date Apr 01, 2017 at 05:30 Discharge Date: Apr 05, 2017 Admitting Diagnosis chest pain , CAD (1) Left main coronary artery disease ICD Codes: I25.10 - Atherosclerotic heart disease of [place] coronary artery without angina pectoris (2) Atrial fibrillation ICD Codes: I48.91 - Unspecified atrial fibrillation Status: Acute (3) Thrombocytosis ICD Codes: D47.3 - Essential (hemorrhagic) thrombocythemia Status: Chronic (4) CVA (cerebral infarction) ICD Codes: I63.9 - Cerebral infarction, unspecified Status: Chronic (5) S/P CABG x 2 Diagnosis: Secondary ICD Codes: Z95.1 - Presence of aortocoronary bypass graft Procedures CABG x 2 04/01 CHRISTOPHER to LAD - good SVG to OM - fair Resection left atrial appendage EVH Brief History 86-year-old male that has been followed by Dr. Pelaez for a history of atrial fibrillation which was diagnosed in December of this year and treated with Eliquis. He had been complaining of some shortness of breath with exertion off and on for the past few months. He normally gets the shortness of breath when he is going from his house to the mailbox and back. However, he is very active and rides his bike 10 miles a day and does not notice any discomfort or symptoms of shortness of breath or chest pain, no paroxysmal nocturnal dyspnea, no orthopnea, no leg cramps or edema. He underwent a nuclear stress test at Dr. Pelaez's office which demonstrated a moderate size area of anterior reversibility consistent with ischemia. The calculated ejection fraction on that was 35-40%. Repeat EF by echo 45%, status post heart catheterization by Dr. Bacon with 70% left main, proximal LAD 90%, diagonal 20%, circumflex 50%, RCA 30%. Now admitted for elective Coronary artery bypass grafting PAST MEDICAL HISTORY 1. Atrial fibrillation. History of cerebral vascular accident in December 2016, followed by Dr. Lock, There was a small acute left occipital lobe stroke at that time. He has since been on Eliquis, not only for the atrial fibrillation but also for the CVA. 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 3. Thrombocytosis. He continues with hydroxyurea for the high platelet count. History of Moses's palsy, Hyperlipidemia, Chronic myeloproliferative disorder. CBC/BMP: 04/04/17 0445 04/04/17 0445 Significant Findings Laboratory Tests Test 04/03/17 04:40 04/04/17 04:45 White Blood Count 14.6 TH/MM3 (4.0-11.0) Red Blood Count 3.57 MIL/MM3 (4.50-5.90) 3.49 MIL/MM3 (4.50-5.90) Hemoglobin 11.7 GM/DL (13.0-17.0) 11.6 GM/DL (13.0-17.0) Hematocrit 34.9 % (39.0-51.0) 34.5 % (39.0-51.0) Red Cell Distribution Width 20.6 % (11.6-17.2) 20.6 % (11.6-17.2) Neutrophils (%) (Auto) 91.7 % (16.0-70.0) 87.7 % (16.0-70.0) Lymphocytes (%) (Auto) 4.6 % (9.0-44.0) 7.6 % (9.0-44.0) Neutrophils # (Auto) 13.4 TH/MM3 (1.8-7.7) 8.6 TH/MM3 (1.8-7.7) Lymphocytes # (Auto) 0.7 TH/MM3 (1.0-4.8) 0.7 TH/MM3 (1.0-4.8) Blood Urea Nitrogen 25 MG/DL (7-18) 25 MG/DL (7-18) Random Glucose 139 MG/DL (74-106) 117 MG/DL (74-106) Calcium Level 8.2 MG/DL (8.5-10.1) 7.9 MG/DL (8.5-10.1) Sodium Level 135 MEQ/L (136-145) 134 MEQ/L (136-145) Potassium Level 5.3 MEQ/L (3.5-5.1) Estimat Glomerular Filtration Rate 56 ML/MIN (>89) 70 ML/MIN (>89) Imaging Last Impressions Chest X-Ray 04/05/17 0000 Signed Impressions: Service Date/Time: Wednesday, April 05, 2017 11:41 - CONCLUSION: 1. Removal of previous right central line and chest tubes. No pneumothorax. Mild basilar atelectasis. Stable elevation left hemidiaphragm. Gilberto Blankenship MD PE at Discharge GENERAL: SKIN: Warm and dry. prevena dressing to chest, incision intact to left medial thigh and lower leg HEAD: Normocephalic. EYES: No scleral icterus. No injection or drainage. NECK: Supple, trachea midline. No JVD or lymphadenopathy. CARDIOVASCULAR: Regular rate and rhythm without murmurs, gallops, or rubs. RESPIRATORY: Breath sounds equal bilaterally. No accessory muscle use. GASTROINTESTINAL: Abdomen soft, non-tender, nondistended. MUSCULOSKELETAL: No cyanosis, or edema. BACK: Nontender without obvious deformity. No CVA tenderness. Hospital Course surgery 04/01 : CABG x 2, CHRISTOPHER to LAD - good, SVG to OM - fair, Resection left atrial appendage, EVH 04/02 remains in afib, pt had episode of slow ventricular responese rate 38 rate now 60's was on dopamine short time last pm, now off will hold on starting BB, and diuresing , BP labile restart hydroxyurea will need to resume eliquis when chest tubes out on ASA, statin transfer to stepdown 04/03/17 Doing well, no complaints. In sinus rhythm 04/04/17 No complaints today. >400ml from chest tubes Back in chronic AFIB 04/05/17 chest tube removed without difficulty post cxr stable , no PTX, will dc home today resume eliquis this pm on statin , ASA BB continue lasix x 5 days Pt Condition on Discharge: Good Discharge Disposition: Disch w/ Home Health Serv Discharge Instructions DIET: Follow Instructions for: Heart Healthy Diet Activities you can perform: Full Weight Bearing, Shower Only-No Bath Activities to avoid: Strenuous Activity, Driving Additional Activity Instructio: no lifting > 8 lbs or gallon of milk Follow up Referrals: Cardiology - 4 Weeks with Clay Pelaez MD PCP Follow-up - 2 Weeks with [facility] - 2 Weeks with Arlene Heredia MD New Orders: BASIC METABOLIC PROF - 2 Weeks CBC NO DIFF - 2 Weeks X-RAY CHEST PA & LAT - 2 Weeks New Medications: Furosemide (Lasix) 40 Mg Tab 40 MG PO DAILY for edema , #5 TAB 0 Refills Potassium Chloride ER (Potassium Chloride ER) 10 Meq Cap 10 MEQ PO DAILY for Electrolyte Replacement, #5 CAP 0 Refills Docusate Sodium (Dok) 100 Mg Cap 100 MG PO BID for Constipation, #60 CAP 0 Refills Hydrocodone/Acetaminophen (Hydrocodone-Acetamin 5-325 mg) 5 Mg-325 Mg Tablet 1 TAB PO Q4HR PRN for PAIN SCALE 1 TO 5, #40 TAB 0 Refills Metoprolol Tartrate (Metoprolol Tartrate) 25 Mg Tab 12.5 MG PO Q12HR for Blood Pressure Management, #60 TAB 2 Refills Multiple Vitamins W/ Minerals (Thera M Plus) 1 Tab 1 TAB PO DAILY for multi vitamin, #30 TAB 2 Refills Continued Medications: Amlodipine (Amlodipine) 5 Mg Tab 5 MG PO DAILY for Blood Pressure Management, #30 TAB 0 Refills Apixaban (Eliquis) 5 Mg Tab 5 MG PO BID for afib, #62 TAB Aspirin (Aspirin) 81 Mg Chew 81 MG CHEW DAILY, TAB 0 Refills Atorvastatin (Lipitor) 10 Mg Tab 10 MG PO HS for stroke, #31 TAB Hydroxyurea (Hydrea) 500 Mg Cap 500 MG PO DAILY for mld, #31 CAP Hydroxyurea (Hydrea) 500 Mg Cap 1000 MG PO DIRECTED, #2 CAP 0 Refills pt takes 1,000mg M W F Discontinued Medications: Isosorbide Mononitrate ER (Isosorbide Mononitrate ER) 30 Mg [place] 30 MG PO DAILY for Prevent Chest Pain, #30 TAB 0 Refills Nitroglycerin SL (Nitroglycerin SL) 0.4 Mg Subl 0.4 MG SL DIRECTED PRN for CHEST PAIN, #100 TAB.SL 0 Refills ONE TABLET UNDER THE TONGUE NEEDED FOR CHEST PAIN, MAY REPEAT EVERY FIVE MINUTES FOR A TOTAL OF 3 DOSES OR CALL 911 IF NO RELIEF Raya Dennis Apr 05, 2017 12:34
== END 2017-04-05 14:00 | disposition home health service (06) | DRG 236 ==
LOC: HSDI 05:30 → HCVI 11:45 → HCPC 04-02 17:30
PROVIDERS: ADMIT Thoracic Surgery (Cardiothoracic Vascular Surgery); ATTEND Thoracic Surgery (Cardiothoracic Vascular Surgery)
PROC: 06BQ4ZZ Excision of Left Saphenous Vein, Percutaneous Endoscopic Approach (ICD-10-PCS; 2017-04-01)
PROC: 02B70ZK Excision of Left Atrial Appendage, Open Approach (ICD-10-PCS; 2017-04-01)
PROC: 5A1221Z Performance of Cardiac Output, Continuous (ICD-10-PCS; 2017-04-01)
PROC: B246ZZ4 Ultrasonography of Right and Left Heart, Transesophageal (ICD-10-PCS; 2017-04-01)
PROC: 021009W Bypass Coronary Artery, One Artery from Aorta with Autologous Venous Tissue, Open Approach (ICD-10-PCS; principal; 2017-04-01 07:12)
PROC: 02100Z9 Bypass Coronary Artery, One Artery from Left Internal Mammary, Open Approach (ICD-10-PCS; 2017-04-01 07:12)
DX: I25.10 Atherosclerotic heart disease of native coronary artery without angina pectoris (principal); I48.2 Chronic atrial fibrillation; D47.1 Chronic myeloproliferative disease; I69.312 Visuospatial deficit and spatial neglect following cerebral infarction; E78.5 Hyperlipidemia, unspecified; D47.3 Essential (hemorrhagic) thrombocythemia; R06.02 Shortness of breath; Z79.01 Long term (current) use of anticoagulants
CPT/HCPCS: 71010; 80048; 82948; 83735; 85025; 85027; 86850; 86900; 86901; 86920; 88305; 93005; 93318; 94002; 94150; 94640; 94664; 94667; 94668; J0131; J0690; J1265; J1644; J1815; J1817; J1940; J2150; J2250; J2370; J2405; J2440; J2720; J2930; J3010; J3370; J3475; J3480; J7120; P9045; P9047; Q0163

== ENCOUNTER 2017-04-21 15:58 | Inpatient (IN) | payer OTHER, MEDICARE ==
[~2017-04-21] VITALS: Ht 172.7 cm; Wt 70.0 kg
[~2017-04-21 15:58] MED LIST changes: +COMMODE 3-IN-11 MIS; +DOCU1CAP39 PO; +FURO1TAB60 PO; +HYDR-3516 PO; -ISOS30TA3 PO; +METO25TA3 PO; -NITR1SUB3 SL; +POTA10CA PO; +THERM PO
[2017-04-21 16:13] VITALS: BP 134/68; PULSE 110; RESP 20; O2SAT 97
[2017-04-21 17:12] VITALS: BP 157/75; PULSE 75; RESP 18; TEMP 100.4; O2SAT 99
[2017-04-21] MEDS ORDERED: LOVA40TA PO (17:17)
[2017-04-21] MEDS ORDERED: ACETAMINOPHEN 325 MG TAB PO ONE (18:30)
--- NOTE | 2017-04-21 18:46 | PD ---
HPI Chief Complaint: Complaint Time Seen by Provider: 19:21 Travel History International Travel<30 days: No Contact w/Intl Traveler<30days: No Traveled to known affect area: No History of Present Illness HPI 86-year-old male with PMH of CAD S/P CABG April 01 presents to the ED for evaluation of 6-8 hour history of urinary urgency and hematuria. Patient states that he is otherwise feeling well. He endorses chills, nonproductive cough, nausea starting today. He denies chest pain, shortness of breath, abdominal pain, vomiting, back pain, leg pain. He states that he is seen Dr. Pelaez, meter repairer helper and has an upcoming appointment with Dr. Heredia, CT surgery tomorrow. PFSH Past Medical History Hx Anticoagulant Therapy: Yes (BABY ASA DAILY) Atrial Fibrillation: Yes Cancer: Yes (skin) Cardiovascular Problems: Yes (afib) High Cholesterol: Yes Diabetes: No Diminished Hearing: No Endocrine: No Gastrointestinal Disorders: Yes (gerd) Genitourinary: No Hepatitis: No Hiatal Hernia: No Hypertension: Yes Immune Disorder: No Musculoskeletal: Yes Neurologic: Yes ([facility] 2014) Psychiatric: No Reproductive: No Respiratory: Yes Immunizations Current: Yes Thyroid Disease: No Tetanus Vaccination: > 5 Years Influenza Vaccination: Yes Past Surgical History AICD: No Joint Replacement: No Pacemaker: No Thoracic Surgery: Yes (BACK SURGERY) Other Surgery: Yes (BACK 1968, cabg x 2 2016APR 01) Social History Alcohol Use: No Tobacco Use: No Substance Use: No Allergies-Medications (Allergen,Severity, Reaction): Coded Allergies: No Known Allergies (Unverified Allergy, Unknown, 04/01/17) Reported Meds & Prescriptions Reported Meds & Active Scripts Active Commode 3-in-1 (Device) 1 Mis Mis Ea .ROUTE DIRECTED Potassium Chloride ER (Potassium Chloride) 10 Meq Cap 10 Meq PO DAILY Lasix (Furosemide) 40 Mg Tab 40 Mg PO DAILY Thera M Plus (Multivitamins/Minerals Therapeutic) 1 Tab 1 Tab PO DAILY Dok (Docusate Sodium) 100 Mg Cap 100 Mg PO BID Hydrocodone-Acetamin 5-325 mg (Hydrocodone/Acetaminophen) 5 Mg-325 Mg Tablet 1 Tab PO Q4HR PRN Metoprolol Tartrate 25 Mg Tab 12.5 Mg PO Q12HR Hydrea (Hydroxyurea) 500 Mg Cap 500 Mg PO DAILY Eliquis (Apixaban) 5 Mg Tab 5 Mg PO BID Reported Lovastatin 40 Mg Tab 40 Mg PO DAILY Hydrea (Hydroxyurea) 500 Mg Cap 1,000 Mg PO DIRECTED pt takes 1,000mg M W F Amlodipine (Amlodipine Besylate) 5 Mg Tab 5 Mg PO DAILY Aspirin 81 Mg Chew 81 Mg CHEW DAILY Review of Systems Except as stated in HPI: all other systems reviewed are Neg Physical Exam Narrative GENERAL: Well-nourished, well-developed white male in no acute distress. SKIN: Focused skin assessment warm/dry. Well-healing surgical scar in the midline of the chest without signs of infection. Well-healing scar on the inner aspect of the left thigh without sign of infection. HEAD: Normocephalic. EYES: No scleral icterus. No injection or drainage. NECK: Supple, trachea midline. No JVD or lymphadenopathy. CARDIOVASCULAR: Regular rate and rhythm without murmurs, gallops, or rubs. RESPIRATORY: Breath sounds clear and equal bilaterally. No accessory muscle use. GASTROINTESTINAL: Abdomen soft, non-tender, nondistended. Active bowel sounds. MUSCULOSKELETAL: No cyanosis, or edema. BACK: Nontender without obvious deformity. No CVA tenderness. Data Data Last Documented VS Vital Signs Date Time Temp Pulse Resp B/P (MAP) Pulse Ox O2 Delivery O2 Flow Rate FiO2 04/21/17 19:33 98.0 80 18 151/84 (106) 99 Room Air Orders Orders Urinalysis - C+S If Indicated (04/21/17 17:35) Complete Blood Count With Diff (04/21/17 17:35) Basic Metabolic Panel (Bmp) (04/21/17 17:35) Acetaminophen (Tylenol) (04/21/17 18:30) Sodium Chlor 0.9% 1000 Ml Inj (Ns 1000 M (04/21/17 19:00) Chest, Single Ap (04/21/17 ) Urine Culture (04/21/17 18:11) Cefepime Inj (Maxipime Inj) (04/21/17 20:00) Azithromycin Inj (Zithromax Inj) (04/21/17 20:00) Admit Order (Ed Use Only) (04/21/17 20:10) Labs Laboratory Tests Test 04/21/17 18:11 White Blood Count 18.6 TH/MM3 Red Blood Count 3.82 MIL/MM3 Hemoglobin 12.5 GM/DL Hematocrit 38.7 % Mean Corpuscular Volume 101.4 FL Mean Corpuscular Hemoglobin 32.8 PG Mean Corpuscular Hemoglobin Concent 32.4 % Red Cell Distribution Width 18.1 % Platelet Count 575 TH/MM3 Mean Platelet Volume 9.0 FL Neutrophils (%) (Auto) 92.1 % Lymphocytes (%) (Auto) 2.5 % Monocytes (%) (Auto) 5.1 % Eosinophils (%) (Auto) 0.0 % Basophils (%) (Auto) 0.3 % Neutrophils # (Auto) 17.1 TH/MM3 Lymphocytes # (Auto) 0.5 TH/MM3 Monocytes # (Auto) 0.9 TH/MM3 Eosinophils # (Auto) 0.0 TH/MM3 Basophils # (Auto) 0.1 TH/MM3 CBC Comment DIFF FINAL Differential Comment Urine Color RED Urine Turbidity HAZY Urine pH 5.5 Urine Specific [place] 1.020 Urine Protein 30 mg/dL Urine Glucose (UA) NEG mg/dL Urine Ketones 10 mg/dL Urine Occult Blood LARGE Urine Nitrite NEG Urine Bilirubin NEG Urine Urobilinogen LESS THAN 2.0 MG/DL Urine Leukocyte Esterase LARGE Urine RBC /hpf Urine WBC /hpf Urine Amorphous Sediment RARE Urine Yeast (Budding) MANY Microscopic Urinalysis Comment CULTURE INDICATED Blood Urea Nitrogen 14 MG/DL Creatinine 0.99 MG/DL Random Glucose 98 MG/DL Calcium Level 8.6 MG/DL Sodium Level 134 MEQ/L Potassium Level 4.4 MEQ/L Chloride Level 102 MEQ/L Carbon Dioxide Level 22.2 MEQ/L Anion Gap 10 MEQ/L Estimat Glomerular Filtration Rate 72 ML/MIN [facility] Medical Decision Making Medical Screen Exam Complete: Yes Emergency Medical Condition: Yes Differential Diagnosis Cystitis versus hemorrhagic cystitis versus sepsis versus other Narrative Course 86-year-old male with PMH of CAD S/P CABG April 01 presents to the ED for evaluation of 6-8 hour history of urinary urgency and hematuria. He endorses chills, nonproductive cough, nausea starting today. He denies chest pain, shortness of breath, abdominal pain, vomiting, back pain, leg pain. He states that he is seen Dr. Pelaez, meter repairer helper and has an upcoming appointment with Dr. Heredia, CT surgery tomorrow. Patient's tachycardia, rate 110, temp 100.4, 99% on room air on presentation. Physical exam reveals a nontoxic- appearing white male in no acute distress. The midsternal wound is well healing without sign infections. Chest is clear to auscultation bilaterally. Abdomen soft and nontender. No CVA tenderness. No lower extremity edema. Patient was administered 650 mg Tylenol by mouth and 1 L normal saline IV. CBC: WBCs 18.6 with left shift. Hemoglobin 12.5. CMP: Unremarkable UA: Red, hazy, large leukocyte esterase, WBC's enumerable, RBCs enumerable. Culture indicated. CXR: Minimal patchy airspace disease in both lung bases that could represent early infiltrates per radiology review. I discussed the results of the workup with the patient and his family. I recommended admission for IV antibiotics for healthcare associated pneumonia and hemorrhagic cystitis. They are agreeable to this plan. IV cefepime and azithromycin initiated. Consult placed with Dr. Heredia. I spoke with Dr. Steve who agrees to accept the patient to the medicine service. Please see medicine notes for disposition. Chantelle Cordova Apr 21, 2017 18:46
[2017-04-21 18:48] VITALS: BP 170/70; PULSE 84; RESP 24; TEMP 99; O2SAT 97
[2017-04-21] MEDS ORDERED: SODIUM CHLOR 0.9% 1000 ML INJ 1,000 ML IV ONE (19:00)
[2017-04-21 19:03] LABS: AUTOMATED NEUTROPHIL # 17.1 TH/MM3 (1.8-7.7); BASOPHIL # 0.1 TH/MM3 (0-0.2); BASOPHIL % 0.3 % (0.0-2.0); HEMATOCRIT 38.7 % (39.0-51.0); HEMO FLAGS DIFF FINAL; LYMPH % 2.5 % (9.0-44.0); LYMPHOCYTE # 0.5 TH/MM3 (1.0-4.8); MEAN CELL VOLUME 101.4 FL (80.0-100.0); MEAN CORPUSCULAR HEMOGLOBIN 32.8 PG (27.0-34.0); MEAN CORPUSCULAR HGB CONC 32.4 % (32.0-36.0); MONO % 5.1 % (0.0-8.0); NEUT % 92.1 % (16.0-70.0); PLATELET COUNT 575 TH/MM3 (150-450); RED BLOOD COUNT 3.82 MIL/MM3 (4.50-5.90); RED CELL DISTRIBUTION WIDTH 18.1 % (11.6-17.2); WHITE BLOOD COUNT 18.6 TH/MM3 (4.0-11.0)
[2017-04-21 19:18] LABS: BICARBONATE 22.2 MEQ/L (21.0-32.0); POTASSIUM 4.4 MEQ/L (3.5-5.1)
[2017-04-21 19:33] VITALS: BP 151/84; PULSE 80; RESP 18; TEMP 98; O2SAT 99
[2017-04-21 19:43] LABS: BLOOD, URINE LARGE (NEG); COMMENT (UR) CULTURE INDICATED; CULTURE IF INDICATED CULTURE INDICATED; GLUCOSE,URINE NEG (NEG); KETONE, URINE 10 mg/dL (NEG); NITRITE,URINE NEG (NEG); PH, URINE 5.5 (5.0-8.5)
--- NOTE | 2017-04-21 19:43 | RADRPT ---
EXAM DATE/TIME: 04/21/2017 19:18 [place] COMPARISON: CHEST SINGLE AP, April 05, 2017, 11:41. INDICATIONS : Cough. MEDICAL HISTORY : Cardiovascular disease. Hypertension SURGICAL HISTORY : CABG. ENCOUNTER: Initial ACUITY: 1 day PAIN SCORE: 10 LOCATION: Bilateral chest FINDINGS: A single view of the chest demonstrates the lungs to be symmetrically aerated with patchy airspace di sease in both lower lung sosa. There are some atelectatic changes above the left hemidiaphragm and there is some blunting of the left costophrenic angle possibly representing a small effusion. Heart s ize is prominent but appears to be well compensated. Intact median sternotomy wires. Osseous structur es are intact. CONCLUSION: 1. Minimal patchy airspace disease in both lung bases could represent early infiltrates. There are so me atelectatic changes/scarring above the left hemidiaphragm with possible small associated effusion. 2. Compensated cardiomegaly Ashvin Higuera MD on April 21, 2017 at 19:39 Board Certified Radiologist. This report was verified electronically.
[2017-04-21 19:44] LABS: URINE COLOR RED (YELLW/STRAW)
[2017-04-21] MEDS ORDERED: CEFEPIME INJ 1,000 MG in SODIUM CHLORIDE 0.9% INJ 100 ML IV ONE (20:00)
[2017-04-21] MEDS ORDERED: AZITHROMYCIN INJ 500 MG in SODIUM CHLOR 0.9% 250 ML INJ 250 ML IV ONE (20:00)
[2017-04-21] MEDS ORDERED: NALOXONE HCL 0.4 MG/ML AMP IV PUSH PRN (20:30)
[2017-04-21] MEDS ORDERED: SODIUM CHLORIDE 0.9% FLUSH 10 ML FLUSH IV FLUSH PRN (20:30)
[2017-04-21] MEDS: SODIUM CHLORIDE 0.9% FLUSH 10 ML FLUSH IV FLUSH SCH (21:51)
[2017-04-21 22:01] VITALS: BP 118/55; PULSE 68; RESP 18; TEMP 98.2; O2SAT 99
--- NOTE | 2017-04-21 23:47 | HHI.HP ---
[facility] Admission Diagnosis hospital associated pneumonia, hemorrhagic cystitis Diagnoses: Travel History International Travel<30 Days: No Contact w/Intl Traveler <30 Da: No Traveled to Known Affected Are: No History of Present Illness hx from patient, ER provider communication and review of med records pt reported he was very weak today went to bathroom every 20min for urination urine is then red, no clot no fever no syncope, no dizzy, no chest pain, no short of breath has started coughing only after coming to hospital, no sputum production . 3 weeks ago today had cabg. on eliquis at home now. and asa 81mg. no peripheral edema, not on water pills at home. no other symptoms Review of Systems Except as stated in HPI: all other systems reviewed are Neg Past Family Social History Past Medical History htn cad cabg 3 weeks ago chf- 45% afib on eliquis hx of CVA hx of thormbocytosis on hydroxyurea pulmonary htn 69, Past Surgical History left heart cath, cabg, back sx in 1967 Allergies: Coded Allergies: No Known Allergies (Unverified Allergy, Unknown, 04/01/17) Family History none that he knows of Social History never smoked , social drinker, no drugs , lives with and daughter, not driving now because of recent sx Physical Exam Vital Signs Vital Signs Date Time Temp Pulse Resp B/P (MAP) Pulse Ox O2 Delivery O2 Flow Rate FiO2 04/21/17 22:01 98.2 68 18 118/55 (76) 99 04/21/17 19:33 98.0 80 18 151/84 (106) 99 Room Air 04/21/17 18:48 99.0 84 24 170/70 (103) 97 Room Air 04/21/17 17:12 100.4 75 18 157/75 (102) 99 Room Air 04/21/17 16:13 110 20 134/68 (90) 97 Physical Exam GENERAL: This is a well-nourished, well-developed patient, in no apparent distress. noted to be coughing, dry cough SKIN: cabg scar site clean, no discharge, no redness; left upper thigh graft site clean as well HEAD: Atraumatic. Normocephalic. No temporal or scalp tenderness. EYES: P No scleral icterus. No injection or drainage. ENT: Nose without bleeding, purulent drainage or septal hematoma. . Airway patent. NECK: Trachea midline. No JVD CARDIOVASCULAR: Regular rate and rhythm without murmurs, gallops, or rubs. RESPIRATORY: Clear to auscultation. Breath sounds equal bilaterally. No wheezes , rales, or rhonchi. GASTROINTESTINAL: Abdomen soft, non-tender, nondistended. No guarding. MUSCULOSKELETAL: Extremities without clubbing, cyanosis, or edema. No calf tenderness. NEUROLOGICAL: Awake and alert. Motor and sensory grossly within normal limits. Normal speech. Laboratory Laboratory Tests Test 04/21/17 18:11 White Blood Count 18.6 Red Blood Count 3.82 Hemoglobin 12.5 Hematocrit 38.7 Mean Corpuscular Volume 101.4 Mean Corpuscular Hemoglobin 32.8 Mean Corpuscular Hemoglobin Concent 32.4 Red Cell Distribution Width 18.1 Platelet Count 575 Mean Platelet Volume 9.0 Neutrophils (%) (Auto) 92.1 Lymphocytes (%) (Auto) 2.5 Monocytes (%) (Auto) 5.1 Eosinophils (%) (Auto) 0.0 Basophils (%) (Auto) 0.3 Neutrophils # (Auto) 17.1 Lymphocytes # (Auto) 0.5 Monocytes # (Auto) 0.9 Eosinophils # (Auto) 0.0 Basophils # (Auto) 0.1 CBC Comment DIFF FINAL Differential Comment Urine Color RED Urine Turbidity HAZY Urine pH 5.5 Urine Specific [place] 1.020 Urine Protein 30 Urine Glucose (UA) NEG Urine Ketones 10 Urine Occult Blood LARGE Urine Nitrite NEG Urine Bilirubin NEG Urine Urobilinogen LESS THAN 2.0 Urine Leukocyte Esterase LARGE Urine RBC Urine WBC Urine Amorphous Sediment RARE Urine Yeast (Budding) MANY Microscopic Urinalysis Comment CULTURE INDICATED Blood Urea Nitrogen 14 Creatinine 0.99 Random Glucose 98 Calcium Level 8.6 Sodium Level 134 Potassium Level 4.4 Chloride Level 102 Carbon Dioxide Level 22.2 Anion Gap 10 Estimat Glomerular Filtration Rate 72 Date/Time Source Procedure Growth Status 04/21/17 18:11 Urine Clean Catch Urine Culture Pending Received Result Diagram: 04/21/17181004/21/171810 Imaging Last 48 hours Impressions Chest X-Ray 04/21/17 0000 Signed Impressions: Service Date/Time: Friday, April 21, 2017 19:18 - CONCLUSION: 1. Minimal patchy airspace disease in both lung bases could represent early infiltrates. There are some atelectatic changes/scarring above the left hemidiaphragm with possible small associated effusion. 2. Compensated cardiomegaly MD Cailin Lopez VTE Risk Assessment Caprinarturo VTE Risk Assessment: Mod/High Risk (score >= 2) Caprini Risk Assessment Model Point Value = 1 Point Value = 2 Point Value = 3 Point Value = 5 Age 41-60 Minor surgery BMI > 25 kg/m2 Swollen legs Varicose veins or History of unexplained or recurrent spontaneous Oral contraceptives or hormone replacement Sepsis (< 1 month) Serious lung disease, including pneumonia (< 1 month) Abnormal pulmonary function Acute myocardial infarction Congestive heart failure (< 1 month) History of inflammatory bowel disease Medical patient at bed rest Age 61-74 Arthroscopic surgery Major open surgery (> 45 min) Laparoscopic surgery (> 45 min) Malignancy Confined to bed (> 72 hours) Immobilizing plaster cast Central venous access Age >= 75 History of VTE Family history of VTE Factor V Leiden Prothrombin [id number] Lupus anticoagulant Anticardiolipin antibodies Elevated serum homocysteine Heparin-induced thrombocytopenia Other congenital or acquired thrombophilia Stroke (< 1 month) Elective arthroplasty Hip, pelvis, or leg fracture Acute spinal cord injury (< 1 month) Prophylaxis Regimen Total Risk Factor Score Risk Level Prophylaxis Regimen 0-1 Low Early ambulation 2 Moderate Order ONE of the following: *Sequential Compression Device (SCD) *Heparin 5000 units SQ BID 3-4 Higher Order ONE of the following medications: *Heparin 5000 units SQ TID *Enoxaparin/Lovenox 40 mg SQ daily (WT < 150 kg, CrCl > 30 mL/min) *Enoxaparin/Lovenox 30 mg SQ daily (WT < 150 kg, CrCl > 10-29 mL/min) *Enoxaparin/Lovenox 30 mg SQ BID (WT < 150 kg, CrCl > 30 mL/min) AND/OR *Sequential Compression Device (SCD) 5 or more Highest Order ONE of the following medications: *Heparin 5000 units SQ TID (Preferred with Epidurals) *Enoxaparin/Lovenox 40 mg SQ daily (WT < 150 kg, CrCl > 30 mL/min) *Enoxaparin/Lovenox 30 mg SQ daily (WT < 150 kg, CrCl > 10-29 mL/min) *Enoxaparin/Lovenox 30 mg SQ BID (WT < 150 kg, CrCl > 30 mL/min) AND *Sequential Compression Device (SCD) Assessment and Plan Assessment and Plan Impression: Bilateral pneumonia- post cabg/hospital accquired hemorrhagic cystitis leukocytosis with left shift htn cad cabg 3 weeks ago chf- 45% afib on eliquis hx of CVA hx of thormbocytosis on hydroxyurea pulmonary htn 69, Plan: pt was given cefepime and azithromycin in ER will switch to levofloxacin will follow cx results, fever trends, cbc pt received iv fluids in ER - has been coughing during exam, fluids d/vero, but will watch for fluid overload not on diuretics at home check bnp in am may need diuretics otherwise will resume home meds dvt prophyalxis on eliquis Discussed Condition With patient, ER PA, nursing staff Physician Certification 2 Midnight Certification Type: Admission for Inpatient Services Order for Inpatient Services The services are ordered in accordance with Medicare regulations or non- Medicare payer requirements, as applicable. In the case of services not specified as inpatient-only, they are appropriately provided as inpatient services in accordance with the 2-midnight benchmark. Estimated LOS (days): 2 days is the estimated time the patient will need to remain in the hospital, assuming treatment plan goals are met and no additional complications. Post-Hospital Plan: Home Narda Steve MD Apr 21, 2017 23:47
[2017-04-22] VITALS (12 sets, daily range): BP systolic 110–164; BP diastolic 55–70; PULSE 46–83; RESP 16–20; TEMP 97.3–99.9; O2SAT 96–99
[2017-04-22] MEDS: LEVOFLOXACIN 750 MG PREMIX INJ 150 ML IV SCH (08:08)
[2017-04-22] MEDS: SODIUM CHLORIDE 0.9% FLUSH 10 ML FLUSH IV FLUSH SCH ×2 (08:09→20:40)
[2017-04-22] MEDS: ASPIRIN 81 MG CHEW TAB CHEW SCH (08:10)
[2017-04-22] MEDS: APIXABAN 5 MG TABLET PO SCH ×2 (08:10→20:39)
[2017-04-22] MEDS: amLODIPine BESYLATE 5 MG TAB PO SCH (08:11)
[2017-04-22] MEDS: METOPROLOL TARTRATE 25 MG TAB PO SCH ×2 (08:11→20:39)
[2017-04-22 08:37] LABS: AUTOMATED NEUTROPHIL # 17.2 TH/MM3 (1.8-7.7); BASOPHIL % 0.2 % (0.0-2.0); HEMATOCRIT 35.8 % (39.0-51.0); HEMO FLAGS DIFF FINAL; LYMPH % 5.5 % (9.0-44.0); LYMPHOCYTE # 1.1 TH/MM3 (1.0-4.8); MEAN CORPUSCULAR HEMOGLOBIN 33.7 PG (27.0-34.0); MONO % 4.2 % (0.0-8.0); NEUT % 90.1 % (16.0-70.0); PLATELET COUNT 513 TH/MM3 (150-450); RED BLOOD COUNT 3.51 MIL/MM3 (4.50-5.90); RED CELL DISTRIBUTION WIDTH 17.5 % (11.6-17.2); WHITE BLOOD COUNT 19.1 TH/MM3 (4.0-11.0)
[2017-04-22] MEDS ORDERED: PRAVASTATIN SOD 40 MG TAB PO SCH (09:00)
[2017-04-22 09:01] LABS: BICARBONATE 22.6 MEQ/L (21.0-32.0)
[2017-04-22 09:02] LABS: POTASSIUM 4.2 MEQ/L (3.5-5.1)
[2017-04-22] MEDS ORDERED: HYDROXYUREA 500 MG CAP PO SCH (11:00)
--- NOTE | 2017-04-22 13:23 | HHI.PR ---
Subjective Remarks This is a pleasant 86 y/o Male who reported in ER weakness, he went to the restroom to void saw his urine with Blood, no clots, he had a CABG 3 weeks ago, on Eliquis and Aspirin, he has Hypertension, CAD, CHF with EF 45%, Pulmonary Hypertension Seen in his bedroom, awaiting evaluation by Cardiothoracic surgery asked by Admitting physician will be important to get the evaluation by Urology specialist for probable Cystoscopy if indicated no nausea, vomit or diarrhea. discussed with nurse Miss Castaneda. asked for Pain medication. Objective Vital Signs Date Time Temp Pulse Resp B/P (MAP) Pulse Ox O2 Delivery O2 Flow Rate FiO2 04/22/17 12:03 97.8 46 20 148/66 (93) 99 04/22/17 09:08 76 04/22/17 08:09 98.0 76 20 132/60 (84) 98 04/22/17 04:19 99.9 83 16 164/70 (101) 96 04/22/17 00:07 98.0 64 18 138/58 (84) 97 04/21/17 22:01 98.2 68 18 118/55 (76) 99 04/21/17 19:33 98.0 80 18 151/84 (106) 99 Room Air 04/21/17 18:48 99.0 84 24 170/70 (103) 97 Room Air 04/21/17 17:12 100.4 75 18 157/75 (102) 99 Room Air 04/21/17 16:13 110 20 134/68 (90) 97 I/O 04/21/17 04/21/17 04/21/17 04/22/17 04/22/17 04/22/17 07:00 15:00 23:00 07:00 15:00 23:00 Intake Total 2350 ml 150 ml Output Total 450 ml Balance 2350 ml -450 ml 150 ml Intake IV Total 2350 ml 150 ml Output Urine Total 450 ml # Bowel Movements 0 Result Diagram: 04/22/1730 04/22/1730 Imaging Last Impressions Chest X-Ray 04/21/17 0000 Signed Impressions: Service Date/Time: Friday, April 21, 2017 19:18 - CONCLUSION: 1. Minimal patchy airspace disease in both lung bases could represent early infiltrates. There are some atelectatic changes/scarring above the left hemidiaphragm with possible small associated effusion. 2. Compensated cardiomegaly Ashvin Higuera MD Procedures None Other Results Laboratory Tests Test 04/21/17 18:11 04/22/17 07:30 Urine Color RED Urine Turbidity HAZY Urine pH 5.5 Urine Specific [place] 1.020 Urine Protein 30 mg/dL Urine Glucose (UA) NEG mg/dL Urine Ketones 10 mg/dL Urine Occult Blood LARGE Urine Nitrite NEG Urine Bilirubin NEG Urine Urobilinogen LESS THAN 2.0 MG/DL Urine Leukocyte Esterase LARGE Urine RBC /hpf Urine WBC /hpf Urine Amorphous Sediment RARE Urine Yeast (Budding) MANY Microscopic Urinalysis Comment CULTURE INDICATED White Blood Count 19.1 TH/MM3 Red Blood Count 3.51 MIL/MM3 Hemoglobin 11.8 GM/DL Hematocrit 35.8 % Mean Corpuscular Volume 102.0 FL Mean Corpuscular Hemoglobin 33.7 PG Mean Corpuscular Hemoglobin Concent 33.0 % Red Cell Distribution Width 17.5 % Platelet Count 513 TH/MM3 Mean Platelet Volume 9.1 FL Neutrophils (%) (Auto) 90.1 % Lymphocytes (%) (Auto) 5.5 % Monocytes (%) (Auto) 4.2 % Eosinophils (%) (Auto) 0.0 % Basophils (%) (Auto) 0.2 % Neutrophils # (Auto) 17.2 TH/MM3 Lymphocytes # (Auto) 1.1 TH/MM3 Monocytes # (Auto) 0.8 TH/MM3 Eosinophils # (Auto) 0.0 TH/MM3 Basophils # (Auto) 0.0 TH/MM3 CBC Comment DIFF FINAL Differential Comment Blood Urea Nitrogen 13 MG/DL Creatinine 0.95 MG/DL Random Glucose 105 MG/DL Calcium Level 8.3 MG/DL Sodium Level 136 MEQ/L Potassium Level 4.2 MEQ/L Chloride Level 103 MEQ/L Carbon Dioxide Level 22.6 MEQ/L Anion Gap 10 MEQ/L Estimat Glomerular Filtration Rate 75 ML/MIN B-Type Natriuretic Peptide 913 PG/ML Objective Remarks GENERAL: Well developed patient in no acute distress. SKIN: clean surgical wound, healing properly. HEAD: Atraumatic. Normocephalic. EYES: P No scleral icterus. ENT: Nose without bleeding. NECK: Trachea midline. No JVD CARDIOVASCULAR: Regular rate and rhythm without murmurs, gallops, or rubs. RESPIRATORY: Clear to auscultation. Breath sounds equal bilaterally. No wheezes , rales, or rhonchi. GASTROINTESTINAL: Abdomen soft, non-tender, nondistended. No guarding. MUSCULOSKELETAL: Extremities without clubbing, cyanosis, or edema. No calf tenderness. NEUROLOGICAL: Awake and alert. Motor and sensory grossly within normal limits. Normal speech. Medications and IVs Current Medications Medications (Trade) Dose Ordered Sig/Laney Route Start Time Stop Time Status Last Admin (NS Flush) 2 ml UNSCH PRN IV FLUSH 04/21/17 20:30 (NS Flush) 2 ml BID IV FLUSH 04/21/17 21:00 04/22/17 08:09 (Narcan Inj) 0.4 mg UNSCH PRN IV PUSH 04/21/17 20:30 Levofloxacin/ Dextrose 150 ml @ 100 mls/hr Q24H IV 04/22/17 09:00 04/22/17 08:08 (Norvasc) 5 mg DAILY PO 04/22/17 09:00 04/22/17 08:11 (Eliquis) 5 mg BID PO 04/22/17 09:00 04/22/17 08:10 (Aspirin Chew) 81 mg DAILY CHEW 04/22/17 09:00 04/22/17 08:10 (Lopressor) 12.5 mg Q12HR PO 04/22/17 09:00 04/22/17 08:11 (Hydrea) 500 mg SuTuThSa@0900 PO 04/22/17 11:00 04/22/17 10:56 (Hydrea) 1,000 mg MoWeFr PO 04/23/17 09:00 (Pravachol) 40 mg HS PO 04/23/17 21:00 A/P Assessment and Plan 1. Bilateral Pneumonia in a patient status post CABG hospital Acquired. on Levaquin since admission consulted Cardiothoracic surgery has Leukocytosis following WBC count. He received Cefepime an Azithromycin in ER Giving Bronchodilator, Mucolytic, incentive spirometry, early activity with Physical Therapy. 2. Hematuria patient is on Eliquis and Aspirin, asked for Urology specialist consult may need Cystoscopy, has large Leukocyte Esterase for probable UTI. continue Levofloxacin. 3. Hypertension controlled 4. CAD status post CABG x 3 asked for Cardiothoracic surgery evaluation by admitting physician 5. Heart Failure with Non preserved Ejection Fraction in 45%. 6. Atrial Fibrillation on Eliquis continue Home medicines. 7. History of CVA 8. Thrombocytosis on Hydroxyurea continue 9. Pulmonary Hypertension Discussed Condition With Patient and Nurse Miss Castaneda NOTE: Pt takes hydroxyurea 500mg daily on Wednesday, , Wednesday, Wednesday and 1000mg on Wednesday, Wednesday, Wednesday discussed with pharmacy, they will put in above orders for me Discharge Planning Expected in two days. Vic Velasquez MD Apr 22, 2017 13:23
[2017-04-22] MEDS: guaiFENesin E.R. 600 MG TAB PO SCH ×2 (13:51→20:39)
[2017-04-22] MEDS: RESP: ALBUTEROL 2.5 MG/IPRATROPIUM 0.5 MG NEB (SCH) NEB ×3 (14:51→23:15)
[2017-04-22 18:34] LABS: AUTOMATED NEUTROPHIL # 14.7 TH/MM3 (1.8-7.7); BASOPHIL % 0.1 % (0.0-2.0); EOSINOPHIL % 0.2 % (0.0-4.0); HEMATOCRIT 35.1 % (39.0-51.0); HEMO FLAGS DIFF FINAL; LYMPH % 7.5 % (9.0-44.0); LYMPHOCYTE # 1.3 TH/MM3 (1.0-4.8); MEAN CELL VOLUME 102.2 FL (80.0-100.0); MEAN CORPUSCULAR HEMOGLOBIN 33.7 PG (27.0-34.0); NEUT % 87.2 % (16.0-70.0); PLATELET COUNT 473 TH/MM3 (150-450); RED BLOOD COUNT 3.44 MIL/MM3 (4.50-5.90); RED CELL DISTRIBUTION WIDTH 17.7 % (11.6-17.2); WHITE BLOOD COUNT 16.9 TH/MM3 (4.0-11.0)
[2017-04-22 18:53] LABS: BICARBONATE 23.7 MEQ/L (21.0-32.0); POTASSIUM 3.8 MEQ/L (3.5-5.1)
[2017-04-22] MEDS ORDERED: ZOLPIDEM TARTRATE 5 MG TAB PO PRN (21:00)
[2017-04-23] MEDS: RESP: ALBUTEROL 2.5 MG/IPRATROPIUM 0.5 MG NEB (SCH) NEB ×2 (02:48→08:32)
[2017-04-23 04:29] VITALS: BP 113/57; PULSE 52; RESP 18; TEMP 98.1; O2SAT 95
[2017-04-23] MEDS: SODIUM CHLORIDE 0.9% FLUSH 10 ML FLUSH IV FLUSH SCH (07:30)
[2017-04-23] MEDS: APIXABAN 5 MG TABLET PO SCH (07:30)
[2017-04-23] MEDS: ASPIRIN 81 MG CHEW TAB CHEW SCH (07:30)
[2017-04-23] MEDS: METOPROLOL TARTRATE 25 MG TAB PO SCH (07:31)
[2017-04-23] MEDS: amLODIPine BESYLATE 5 MG TAB PO SCH (07:31)
[2017-04-23] MEDS: guaiFENesin E.R. 600 MG TAB PO SCH (07:31)
[2017-04-23] MEDS: LEVOFLOXACIN 750 MG PREMIX INJ 150 ML IV SCH (07:32)
[2017-04-23 08:16] VITALS: BP 140/76; PULSE 66; RESP 20; TEMP 97.8; O2SAT 96
--- NOTE | 2017-04-23 08:32 | PD.CAR.PN ---
CVT Progress Note Subjective/Hospital Course: No complaints, asking to be discharged Objective: Vital Signs Date Time Temp Pulse Resp B/P (MAP) Pulse Ox O2 Delivery O2 Flow Rate FiO2 04/23/17 08:16 97.8 66 20 140/76 (97) 96 04/23/17 04:29 98.1 52 18 113/57 (75) 95 04/22/17 23:45 98.8 57 18 111/55 (73) 98 04/22/17 21:33 97 04/22/17 20:15 98.4 67 18 110/55 (73) 96 04/22/17 18:00 73 04/22/17 17:36 59 04/22/17 16:04 97.3 73 20 143/62 (89) 99 04/22/17 14:55 97 21 04/22/17 12:03 97.8 46 20 148/66 (93) 99 04/22/17 09:08 76 Result Diagram: 04/22/17 1735 04/22/17 1735 Cardiovascular: RRR Pulmonary: CTA GI/: NABS, NT Incision: dry and intact Plan: Patient has urinary tract infection - no evidence of pneumonia. Gram negative rods, on levaquin Asymptomatic currently with clear urine Change to PO Levaquin Discharge per hospital service Arlene Heredia MD Apr 23, 2017 08:32
[2017-04-23 08:33] VITALS: O2SAT 98
[2017-04-23] MEDS ORDERED: HYDROXYUREA 500 MG CAP PO SCH (09:00)
[2017-04-23] MEDS ORDERED: LEVA750T9 PO (09:31)
[2017-04-23] MEDS ORDERED: guaiFENesin ER PO (09:31)
[2017-04-23 10:14] VITALS: PULSE 77
--- NOTE | 2017-04-23 13:25 | HHI.PR ---
Subjective Remarks This is a pleasant 86 y/o Male who reported in ER weakness, he went to the restroom to void saw his urine with Blood, no clots, he had a CABG 3 weeks ago, on Eliquis and Aspirin, he has Hypertension, CAD, CHF with EF 45%, Pulmonary Hypertension Seen in his bedroom, awaiting evaluation by Cardiothoracic surgery asked by Admitting physician will be important to get the evaluation by Urology specialist for probable Cystoscopy if indicated. 04/23: Seen the patient, no nausea, vomit or diarrhea, already seen by his primary Cardiothoracic weight reduction specialist Doctor Arlene Heredia, recommended to switch Levaquin o by mouth and discharge the patient home, his Urine is clear. Objective Vital Signs Date Time Temp Pulse Resp B/P (MAP) Pulse Ox O2 Delivery O2 Flow Rate FiO2 04/23/17 10:14 77 04/23/17 08:33 98 04/23/17 08:16 97.8 66 20 140/76 (97) 96 04/23/17 04:29 98.1 52 18 113/57 (75) 95 04/22/17 23:45 98.8 57 18 111/55 (73) 98 04/22/17 21:33 97 04/22/17 20:15 98.4 67 18 110/55 (73) 96 04/22/17 18:00 73 04/22/17 17:36 59 04/22/17 16:04 97.3 73 20 143/62 (89) 99 04/22/17 14:55 97 21 I/O 04/22/17 04/22/17 04/22/17 04/23/17 04/23/17 04/23/17 07:00 15:00 23:00 07:00 15:00 23:00 Intake Total 150 ml 720 ml 150 ml Output Total 450 ml 850 ml 400 ml Balance -450 ml 150 ml -130 ml -400 ml 150 ml Intake Oral 720 ml IV Total 150 ml 150 ml Output Urine Total 450 ml 850 ml 400 ml # Bowel Movements 0 1 Result Diagram: 04/22/17 1735 04/22/17 1735 Imaging Last Impressions Chest X-Ray 04/21/17 0000 Signed Impressions: Service Date/Time: Friday, April 21, 2017 19:18 - CONCLUSION: 1. Minimal patchy airspace disease in both lung bases could represent early infiltrates. There are some atelectatic changes/scarring above the left hemidiaphragm with possible small associated effusion. 2. Compensated cardiomegaly Ashvin Higuera MD Procedures None Other Results Laboratory Tests Test 04/21/17 18:11 04/22/17 07:30 04/22/17 17:35 Urine Color RED Urine Turbidity HAZY Urine pH 5.5 Urine Specific [place] 1.020 Urine Protein 30 mg/dL Urine Glucose (UA) NEG mg/dL Urine Ketones 10 mg/dL Urine Occult Blood LARGE Urine Nitrite NEG Urine Bilirubin NEG Urine Urobilinogen LESS THAN 2.0 MG/DL Urine Leukocyte Esterase LARGE Urine RBC /hpf Urine WBC /hpf Urine Amorphous Sediment RARE Urine Yeast (Budding) MANY Microscopic Urinalysis Comment CULTURE INDICATED B-Type Natriuretic Peptide 913 PG/ML White Blood Count 16.9 TH/MM3 Red Blood Count 3.44 MIL/MM3 Hemoglobin 11.6 GM/DL Hematocrit 35.1 % Mean Corpuscular Volume 102.2 FL Mean Corpuscular Hemoglobin 33.7 PG Mean Corpuscular Hemoglobin Concent 33.0 % Red Cell Distribution Width 17.7 % Platelet Count 473 TH/MM3 Mean Platelet Volume 9.2 FL Neutrophils (%) (Auto) 87.2 % Lymphocytes (%) (Auto) 7.5 % Monocytes (%) (Auto) 5.0 % Eosinophils (%) (Auto) 0.2 % Basophils (%) (Auto) 0.1 % Neutrophils # (Auto) 14.7 TH/MM3 Lymphocytes # (Auto) 1.3 TH/MM3 Monocytes # (Auto) 0.8 TH/MM3 Eosinophils # (Auto) 0.0 TH/MM3 Basophils # (Auto) 0.0 TH/MM3 CBC Comment DIFF FINAL Differential Comment Blood Urea Nitrogen 13 MG/DL Creatinine 0.99 MG/DL Random Glucose 110 MG/DL Calcium Level 8.4 MG/DL Sodium Level 136 MEQ/L Potassium Level 3.8 MEQ/L Chloride Level 102 MEQ/L Carbon Dioxide Level 23.7 MEQ/L Anion Gap 10 MEQ/L Estimat Glomerular Filtration Rate 72 ML/MIN Objective Remarks GENERAL: Well developed patient in no acute distress. SKIN: clean surgical wound, healing properly. HEAD: Atraumatic. Normocephalic. EYES: P No scleral icterus. ENT: Nose without bleeding. NECK: Trachea midline. No JVD CARDIOVASCULAR: Regular rate and rhythm without murmurs, gallops, or rubs. RESPIRATORY: Clear to auscultation. Breath sounds equal bilaterally. No wheezes , rales, or rhonchi. GASTROINTESTINAL: Abdomen soft, non-tender, nondistended. No guarding. MUSCULOSKELETAL: Extremities without clubbing, cyanosis, or edema. No calf tenderness. NEUROLOGICAL: Awake and alert. Motor and sensory grossly within normal limits. Normal speech. A/P Assessment and Plan 1. Bilateral Pneumonia in a patient status post CABG hospital Acquired. on Levaquin since admission consulted Cardiothoracic surgery has Leukocytosis following WBC count. He received Cefepime an Azithromycin in ER Giving Bronchodilator, Mucolytic, incentive spirometry, early activity with Physical Therapy. Seen the patient, no nausea, vomit or diarrhea, already seen by his primary Cardiothoracic weight reduction specialist Doctor Arlene Heredia, recommended to switch Levaquin o by mouth and discharge the patient home, his Urine is clear. 2. Hematuria patient is on Eliquis and Aspirin, asked for Urology specialist consult may need Cystoscopy, has large Leukocyte Esterase for probable UTI. continue Levofloxacin. as per Cardiothoracic surgery to continue his home anticoagulation. 3. Hypertension controlled 4. CAD status post CABG x 3 asked for Cardiothoracic surgery evaluation by admitting physician 5. Heart Failure with Non preserved Ejection Fraction in 45%. 6. Atrial Fibrillation on Eliquis continue Home medicines. 7. History of CVA 8. Thrombocytosis on Hydroxyurea continue 9. Pulmonary Hypertension Discussed Condition With Patient and nurse okay to discharge HOme. Discharge Planning Discharge Home. Vic Velasquez MD Apr 23, 2017 13:25
--- NOTE | 2017-04-23 13:26 | HHI.DS ---
Discharge Summary Admission Date Apr 21, 2017 at 20:11 Discharge Date: Apr 23, 2017 Admitting Diagnosis hospital associated pneumonia, hemorrhagic cystitis (1) Pneumonia ICD Code: J18.9 - Pneumonia, unspecified organism Diagnosis: Principal Procedures None Brief History - From Admission hx from patient, ER provider communication and review of med records pt reported he was very weak today went to bathroom every 20min for urination urine is then red, no clot no fever no syncope, no dizzy, no chest pain, no short of breath has started coughing only after coming to hospital, no sputum production . 3 weeks ago today had cabg. on eliquis at home now. and asa 81mg. no peripheral edema, not on water pills at home. no other symptoms CBC/BMP: 04/22/17 1735 04/22/17 1735 Significant Findings Laboratory Tests Test 04/21/17 18:11 04/22/17 07:30 04/22/17 17:35 White Blood Count 18.6 TH/MM3 (4.0-11.0) 19.1 TH/MM3 (4.0-11.0) 16.9 TH/MM3 (4.0-11.0) Red Blood Count 3.82 MIL/MM3 (4.50-5.90) 3.51 MIL/MM3 (4.50-5.90) 3.44 MIL/MM3 (4.50-5.90) Hemoglobin 12.5 GM/DL (13.0-17.0) 11.8 GM/DL (13.0-17.0) 11.6 GM/DL (13.0-17.0) Hematocrit 38.7 % (39.0-51.0) 35.8 % (39.0-51.0) 35.1 % (39.0-51.0) Mean Corpuscular Volume 101.4 FL (80.0-100.0) 102.0 FL (80.0-100.0) 102.2 FL (80.0-100.0) Red Cell Distribution Width 18.1 % (11.6-17.2) 17.5 % (11.6-17.2) 17.7 % (11.6-17.2) Platelet Count 575 TH/MM3 (150-450) 513 TH/MM3 (150-450) 473 TH/MM3 (150-450) Neutrophils (%) (Auto) 92.1 % (16.0-70.0) 90.1 % (16.0-70.0) 87.2 % (16.0-70.0) Lymphocytes (%) (Auto) 2.5 % (9.0-44.0) 5.5 % (9.0-44.0) 7.5 % (9.0-44.0) Neutrophils # (Auto) 17.1 TH/MM3 (1.8-7.7) 17.2 TH/MM3 (1.8-7.7) 14.7 TH/MM3 (1.8-7.7) Lymphocytes # (Auto) 0.5 TH/MM3 (1.0-4.8) Urine Color RED (YELLW/STRAW) Urine Turbidity HAZY (CLEAR) Urine Protein 30 mg/dL (NEG-TRACE) Urine Ketones 10 mg/dL (NEG) Urine Occult Blood LARGE (NEG) Urine Leukocyte Esterase LARGE (NEG) Urine Yeast (Budding) MANY (NONE) Sodium Level 134 MEQ/L (136-145) Estimat Glomerular Filtration Rate 72 ML/MIN (>89) 75 ML/MIN (>89) 72 ML/MIN (>89) Calcium Level 8.3 MG/DL (8.5-10.1) 8.4 MG/DL (8.5-10.1) B-Type Natriuretic Peptide 913 PG/ML (0-100) Random Glucose 110 MG/DL (74-106) Imaging Last Impressions Chest X-Ray 04/21/17 0000 Signed Impressions: Service Date/Time: Friday, April 21, 2017 19:18 - CONCLUSION: 1. Minimal patchy airspace disease in both lung bases could represent early infiltrates. There are some atelectatic changes/scarring above the left hemidiaphragm with possible small associated effusion. 2. Compensated cardiomegaly Ashvin Higuera MD PE at Discharge GENERAL: Well developed patient in no acute distress. SKIN: clean surgical wound, healing properly. HEAD: Atraumatic. Normocephalic. EYES: P No scleral icterus. ENT: Nose without bleeding. NECK: Trachea midline. No JVD CARDIOVASCULAR: Regular rate and rhythm without murmurs, gallops, or rubs. RESPIRATORY: Clear to auscultation. Breath sounds equal bilaterally. No wheezes , rales, or rhonchi. GASTROINTESTINAL: Abdomen soft, non-tender, nondistended. No guarding. MUSCULOSKELETAL: Extremities without clubbing, cyanosis, or edema. No calf tenderness. NEUROLOGICAL: Awake and alert. Motor and sensory grossly within normal limits. Normal speech. Hospital Course This is a pleasant 86 y/o Male who reported in ER weakness, he went to the restroom to void saw his urine with Blood, no clots, he had a CABG 3 weeks ago, on Eliquis and Aspirin, he has Hypertension, CAD, CHF with EF 45%, Pulmonary Hypertension Seen in his bedroom, awaiting evaluation by Cardiothoracic surgery asked by Admitting physician will be important to get the evaluation by Urology specialist for probable Cystoscopy if indicated. 04/23: Seen the patient, no nausea, vomit or diarrhea, already seen by his primary Cardiothoracic chief of surgery Doctor Arlene Heredia, recommended to switch Levaquin o by mouth and discharge the patient home, his Urine is clear. Assessment and Plan 1. Bilateral Pneumonia in a patient status post CABG hospital Acquired. on Levaquin since admission consulted Cardiothoracic surgery has Leukocytosis following WBC count. He received Cefepime an Azithromycin in ER Giving Bronchodilator, Mucolytic, incentive spirometry, early activity with Physical Therapy. Seen the patient, no nausea, vomit or diarrhea, already seen by his primary Cardiothoracic chief of surgery Doctor Arlene Heredia, recommended to switch Levaquin o by mouth and discharge the patient home, his Urine is clear. 2. Hematuria patient is on Eliquis and Aspirin, asked for Urology specialist consult may need Cystoscopy, has large Leukocyte Esterase for probable UTI. continue Levofloxacin. as per Cardiothoracic surgery to continue his home anticoagulation. 3. Hypertension controlled 4. CAD status post CABG x 3 asked for Cardiothoracic surgery evaluation by admitting physician 5. Heart Failure with Non preserved Ejection Fraction in 45%. 6. Atrial Fibrillation on Eliquis continue Home medicines. 7. History of CVA 8. Thrombocytosis on Hydroxyurea continue 9. Pulmonary Hypertension Discussed Condition With Patient and nurse okay to discharge HOme. Discharge Planning Discharge Home. Pt Condition on Discharge: Good Discharge Disposition: Discharge Home Discharge Time: <= 30 minutes Discharge Instructions DIET: Follow Instructions for: Heart Healthy Diet Activities you can perform: Regular-No Restrictions Other Activity Instructions: The patient has a walker for ambulation Vic Velasquez MD Apr 23, 2017 13:26
[2017-04-23] MEDS ORDERED: PRAVASTATIN SOD 40 MG TAB PO SCH (21:00)
[2017-04-24] MEDS ORDERED: LEVOFLOXACIN 750 MG TAB PO SCH (08:00)
== END 2017-04-23 10:52 | disposition home or self-care (01) | DRG 194 ==
LOC: NEDAMB 15:58 → NEDA 20:11 → N05B 21:12
PROVIDERS: ADMIT Internal Medicine; ATTEND Internal Medicine
DX: J18.9 Pneumonia, unspecified organism (principal); N39.0 Urinary tract infection, site not specified; I27.20 Pulmonary hypertension, unspecified; I11.0 Hypertensive heart disease with heart failure; I50.9 Heart failure, unspecified; I48.91 Unspecified atrial fibrillation; Y95 Nosocomial condition; Z79.02 Long term (current) use of antithrombotics/antiplatelets; Z79.82 Long term (current) use of aspirin; I25.10 Atherosclerotic heart disease of native coronary artery without angina pectoris; Z95.1 Presence of aortocoronary bypass graft; B96.89 Other specified bacterial agents as the cause of diseases classified elsewhere; R31.0 Gross hematuria; Z86.73 Personal history of transient ischemic attack (TIA), and cerebral infarction without residual deficits; E78.00 Pure hypercholesterolemia, unspecified; K21.9 Gastro-esophageal reflux disease without esophagitis; R79.89 Other specified abnormal findings of blood chemistry
CPT/HCPCS: 71010; 80048; 81001; 83880; 85025; 87077; 87086; 87186; 94150; 94640; 94664; 96360; J0456; J0692; J1956; J7030; J7050

== ENCOUNTER 2017-04-27 11:26 | Emergency (ER) | payer MEDICARE, OTHER ==
[~2017-04-27] VITALS: Ht 167.6 cm; Wt 85.4 kg
[~2017-04-27 11:26] MED LIST changes: -DOCU1CAP39 PO; -FURO1TAB60 PO; -HYDR-3516 PO; +LEVA750T9 PO; -LIPI10TA PO; +LOVA40TA PO; -POTA10CA PO; -THERM PO; +guaiFENesin ER PO
[2017-04-27 11:34] VITALS: BP 139/66; PULSE 81; RESP 16; TEMP 97.8; O2SAT 99
[2017-04-27] MEDS ORDERED: HYDR500C PO (12:04)
--- NOTE | 2017-04-27 12:15 | PD ---
HPI Chief Complaint: Edema Time Seen by Provider: 11:52 Travel History International Travel<30 days: No Contact w/Intl Traveler<30days: No Traveled to known affect area: No History of Present Illness HPI 86yo M with PMH of afib on eliquis, CAD s/p CABG 3.5 weeks ago, CVA, HTN here with c/o left leg pain and edema since yesterday. Has some swelling in left lower extremity and calf pain only when you palpate it. Denies any history of PE/DVT, chest pain, fever, trauma, sob, n/v, abdominal pain, focal weakness or numbness. Pt is still taking levofloxacin for hemorrhagic cystitis. PFSH Past Medical History Hx Anticoagulant Therapy: Yes Atrial Fibrillation: Yes Cancer: Yes (skin) Cardiovascular Problems: Yes (afib) High Cholesterol: Yes Diabetes: No Diminished Hearing: No Endocrine: No Gastrointestinal Disorders: Yes (gerd) GERD: Yes Genitourinary: No Hepatitis: No Hiatal Hernia: No Hypertension: Yes Immune Disorder: No Medical other: No Musculoskeletal: Yes Neurologic: Yes ([facility] 2014) Psychiatric: No Reproductive: No Respiratory: Yes Immunizations Current: Yes Thyroid Disease: No Tetanus Vaccination: > 5 Years Influenza Vaccination: Yes Past Surgical History AICD: No Coronary Artery Bypass Graft: Yes Joint Replacement: No Pacemaker: No Thoracic Surgery: Yes (BACK SURGERY) Other Surgery: Yes (BACK 1968, cabg x 2 2016APR 01) Social History Alcohol Use: No Tobacco Use: No Substance Use: No Allergies-Medications (Allergen,Severity, Reaction): Coded Allergies: No Known Allergies (Unverified Allergy, Unknown, 04/27/17) Reported Meds & Prescriptions Reported Meds & Active Scripts Active Levaquin (Levofloxacin) 750 Mg Tablet 750 Mg PO Q24H Metoprolol Tartrate 25 Mg Tab 12.5 Mg PO Q12HR Eliquis (Apixaban) 5 Mg Tab 5 Mg PO BID Reported Hydrea (Hydroxyurea) 500 Mg Cap 500 Mg PO E, , WED, WHITE Lovastatin 40 Mg Tab 40 Mg PO DAILY Hydrea (Hydroxyurea) 500 Mg Cap 1,000 Mg PO DIRECTED pt takes 1,000mg M W F Amlodipine (Amlodipine Besylate) 5 Mg Tab 5 Mg PO DAILY Aspirin 81 Mg Chew 81 Mg CHEW DAILY Review of Systems Except as stated in HPI: all other systems reviewed are Neg Physical Exam Narrative GENERAL: 86yo M not in distress. SKIN: Focused skin assessment warm/dry. HEAD: Atraumatic. Normocephalic. EYES: Pupils equal and round. No scleral icterus. No injection or drainage. CARDIOVASCULAR: Regular rate and rhythm. No murmur appreciated. RESPIRATORY: No accessory muscle use. Clear to auscultation. Breath sounds equal bilaterally. CHEST WALL: Mid sternal surgical scar clean/dry/intact. No erythema or tenderness. GASTROINTESTINAL: Abdomen soft, non-tender, nondistended. MUSCULOSKELETAL: LLE: +Edema tib/fib. DP 2+. Mild calf tenderness. Sensation intact. Muscle strength intact. Medial thigh surgical scar is clean/dry/ intact with no tenderness, redness or discharge. NEUROLOGICAL: Awake and alert. No obvious cranial nerve deficits. Motor grossly within normal limits. Normal speech. PSYCHIATRIC: Appropriate mood and affect; insight and judgment normal. Data Data Last Documented VS Vital Signs Date Time Temp Pulse Resp B/P (MAP) Pulse Ox O2 Delivery O2 Flow Rate FiO2 04/27/17 13:15 71 16 141/66 (91) 100 Room Air 04/27/17 11:34 97.8 Orders Orders Us Leg Venous Doppler (04/27/17 ) Complete Blood Count With Diff (04/27/17 14:16) Basic Metabolic Panel (Bmp) (04/27/17 14:16) Prothrombin Time / Inr (Pt) (04/27/17 14:16) Act Partial Throm Time (Ptt) (04/27/17 14:16) Labs Laboratory Tests Test 04/27/17 14:30 White Blood Count 9.3 TH/MM3 Red Blood Count 3.50 MIL/MM3 Hemoglobin 11.4 GM/DL Hematocrit 35.6 % Mean Corpuscular Volume 101.9 FL Mean Corpuscular Hemoglobin 32.5 PG Mean Corpuscular Hemoglobin Concent 31.9 % Red Cell Distribution Width 16.8 % Platelet Count 535 TH/MM3 Mean Platelet Volume 8.1 FL Neutrophils (%) (Auto) 81.1 % Lymphocytes (%) (Auto) 11.5 % Monocytes (%) (Auto) 5.8 % Eosinophils (%) (Auto) 1.5 % Basophils (%) (Auto) 0.1 % Neutrophils # (Auto) 7.6 TH/MM3 Lymphocytes # (Auto) 1.1 TH/MM3 Monocytes # (Auto) 0.5 TH/MM3 Eosinophils # (Auto) 0.1 TH/MM3 Basophils # (Auto) 0.0 TH/MM3 CBC Comment DIFF FINAL Differential Comment Prothrombin Time 13.1 SEC Prothromb Time International Ratio 1.3 RATIO Activated Partial Thromboplast Time 32.2 SEC Blood Urea Nitrogen 14 MG/DL Creatinine 0.99 MG/DL Random Glucose 97 MG/DL Calcium Level 8.3 MG/DL Sodium Level 137 MEQ/L Potassium Level 3.8 MEQ/L Chloride Level 104 MEQ/L Carbon Dioxide Level 24.2 MEQ/L Anion Gap 9 MEQ/L Estimat Glomerular Filtration Rate 72 ML/MIN [facility] Medical Decision Making Medical Screen Exam Complete: Yes Emergency Medical Condition: Yes Differential Diagnosis DVT vs. musculoskeletal pain vs. dependent edema vs. venous insufficiency Narrative Course 86yo M with left leg swelling and mild calf pain for 1 day. No trauma. No fever or systemic symptoms. Labs reviewed, no leukocytosis. H/H 11.4/35.6, this is baseline for patient. Platelet elevated at 535. BMP unremarkable. PTT and PT mildly elevated. Normal INR. US showed no sonographic evidence of left lower extremity DVT. 8.8cm x 2.1 x 4.2cm probable hematoma in mid calf. Given risk and benefit of CVA, do not want to take pt off eliquis. Will have pt ice left calf and follow up with primary care and client relationship consultant Dr. Pelaez. Return precautions given. Diagnosis Primary Impression: Hematoma Patient Instructions: General Instructions Departure Forms: Tests/Procedures Additional Instructions: Please follow up with your primary care physician. Return to the ED if symptoms worsen. Med/Other Pt SpecificInfo: Prescription(s) given Scripts Acetaminophen (Tylenol) 325 Mg Tab 325 MG PO Q4H Y for PAIN SCALE 1 TO 4, #20 TAB 0 Refills Prov: ZhaoJazmine 04/27/17 Disposition: 01 DISCHARGE HOME Condition: Stable ChurchillJazmine DO Apr 27, 2017 12:15
[2017-04-27 13:15] VITALS: BP 141/66; PULSE 71; RESP 16; O2SAT 100
--- NOTE | 2017-04-27 13:56 | RADRPT ---
EXAM DATE/TIME: 04/27/2017 12:48 [facility] COMPARISON: No previous studies available for comparison. INDICATIONS : Left leg pain and swelling. MEDICAL HISTORY : Hypercholesterolemia. Hypertension. Gastroesophageal reflux disease. A-fib. Dyspnea. Skin cancer. Moses's palsy. anticoagulant therapy, eliquis & aspirin 81mg. SURGICAL HISTORY : CABG Back surgery, 1967. ENCOUNTER: Initial ACUITY: 1 day PAIN SCORE: 3/10 LOCATION: Left leg. TECHNIQUE: Venous ultrasound of the leg was performed from the inguinal ligament to the proximal calf. Real-rosmery e, color Doppler and spectral tracing, compression and augmentation techniques were used. FINDINGS: There is normal compressibility of the deep venous system from the inguinal region to the proximal ca lf. No echogenic clot is seen in the lumen of the common femoral, femoral, popliteal, and posterior tibial veins. There is a normal response of the venous system to proximal and distal augmentation an d respiration. There is an 8.8 x 2.1 x 4.2 cm heterogeneous complex partially cystic collection in the mid calf CONCLUSION: 1. No sonographic evidence for left lower extremity DVT. 2. 8.8 x 2.1 x 4.2 cm probable hematoma in the mid calf. Buster Jacobs MD on April 27, 2017 at 13:51 Board Certified Radiologist. This report was verified electronically.
[2017-04-27 14:20] VITALS: BP 140/69; PULSE 69; RESP 18; O2SAT 98
[2017-04-27 14:47] LABS: AUTOMATED NEUTROPHIL # 7.6 TH/MM3 (1.8-7.7); BASOPHIL % 0.1 % (0.0-2.0); EOSINOPHIL # 0.1 TH/MM3 (0-0.4); EOSINOPHIL % 1.5 % (0.0-4.0); HEMATOCRIT 35.6 % (39.0-51.0); HEMO FLAGS DIFF FINAL; LYMPH % 11.5 % (9.0-44.0); LYMPHOCYTE # 1.1 TH/MM3 (1.0-4.8); MEAN CELL VOLUME 101.9 FL (80.0-100.0); MEAN CORPUSCULAR HEMOGLOBIN 32.5 PG (27.0-34.0); MEAN CORPUSCULAR HGB CONC 31.9 % (32.0-36.0); MONO % 5.8 % (0.0-8.0); NEUT % 81.1 % (16.0-70.0); PLATELET COUNT 535 TH/MM3 (150-450); RED CELL DISTRIBUTION WIDTH 16.8 % (11.6-17.2); WHITE BLOOD COUNT 9.3 TH/MM3 (4.0-11.0)
[2017-04-27 14:54] LABS: POTASSIUM 3.8 MEQ/L (3.5-5.1)
[2017-04-27 14:57] LABS: BICARBONATE 24.2 MEQ/L (21.0-32.0)
[2017-04-27 14:58] LABS: APTT (PATIENT) 32.2 SEC (24.3-30.1); INTERNATIONAL NORMALIZED RATIO 1.3 RATIO; PROTHROMBIN TIME - PATIENT 13.1 SEC (9.8-11.6)
[2017-04-27] MEDS ORDERED: TYLE325T PO (15:25)
[2017-04-27 15:47] VITALS: BP 124/63
== END 2017-04-27 15:49 | disposition home or self-care (01) ==
LOC: PHED 11:26
DX: M79.605 Pain in left leg (principal); M79.89 Other specified soft tissue disorders; E78.00 Pure hypercholesterolemia, unspecified; I10 Essential (primary) hypertension; I48.91 Unspecified atrial fibrillation; Z79.01 Long term (current) use of anticoagulants
CPT/HCPCS: 80048; 85025; 85610; 85730; 93971; 99284

== ENCOUNTER 2017-05-31 09:37 | Emergency (ER) | payer OTHER ==
[~2017-05-31] VITALS: Ht 167.6 cm; Wt 81.0 kg
[~2017-05-31 09:37] MED LIST changes: -COMMODE 3-IN-11 MIS; +TYLE325T PO; -guaiFENesin ER PO
[2017-05-31 09:44] VITALS: BP 84/63; PULSE 61; RESP 16; TEMP 97.9; O2SAT 97
[2017-05-31 09:51] VITALS: BP 131/69; PULSE 90; RESP 18; O2SAT 99
[2017-05-31] MEDS ORDERED: HUMIBIDDM PO (10:01)
--- NOTE | 2017-05-31 10:18 | PD ---
HPI Chief Complaint: Cold / Flu Symptoms Time Seen by Provider: 09:57 Travel History International Travel<30 days: No Contact w/Intl Traveler<30days: No Traveled to known affect area: No History of Present Illness HPI This 86-year-old male says he been feeling very weak. He had coronary bypass surgery on April 01. He had been doing well after that. He regained his appetite and had started to exercise. The past week or so his been sick. He was having a bad cough. The cough seems to have improved a little bit after taking some Mucinex. He says that this morning he walked down his driveway to get the newspaper and he got short of breath. He has never smoked. He did have some trouble breathing prior to his surgery. He's been having diarrhea but the diarrhea stopped 2 days ago. He says he been drinking a lot of fluids. He is not aware of fever. He has been coughing a lot PFSH Past Medical History Hx Anticoagulant Therapy: Yes Atrial Fibrillation: Yes Cancer: Yes (skin) Cardiovascular Problems: Yes (CABG 03/2017) High Cholesterol: Yes Diabetes: No Diminished Hearing: No Endocrine: No Gastrointestinal Disorders: Yes (gerd) GERD: Yes Genitourinary: No Hepatitis: No Hiatal Hernia: No Hypertension: Yes Immune Disorder: No Musculoskeletal: Yes Neurologic: Yes ([facility] 2014) Psychiatric: No Reproductive: No Respiratory: Yes Immunizations Current: Yes Thyroid Disease: No Influenza Vaccination: Yes Past Surgical History AICD: No Coronary Artery Bypass Graft: Yes (04/01/17) Joint Replacement: No Pacemaker: No Thoracic Surgery: Yes (BACK SURGERY) Other Surgery: Yes (BACK 1968, cabg x 2 [id number] 01) Social History Alcohol Use: No Tobacco Use: No Substance Use: No Allergies-Medications (Allergen,Severity, Reaction): Coded Allergies: No Known Allergies (Unverified Allergy, Unknown, 05/31/17) Reported Meds & Prescriptions Reported Meds & Active Scripts Active Tylenol (Acetaminophen) 325 Mg Tab 325 Mg PO Q4H PRN Metoprolol Tartrate 25 Mg Tab 12.5 Mg PO Q12HR Eliquis (Apixaban) 5 Mg Tab 5 Mg PO BID Reported Mucinex DM (Dextromethorphan-Guaifenesin) 30-600 Mg Tab 1 Tab PO BID PRN Hydrea (Hydroxyurea) 500 Mg Cap 500 Mg PO TUE, TH, SAT, WHITE Lovastatin 40 Mg Tab 40 Mg PO DAILY Hydrea (Hydroxyurea) 500 Mg Cap 1,000 Mg PO DIRECTED pt takes 1,000mg M W Amlodipine (Amlodipine Besylate) 5 Mg Tab 5 Mg PO DAILY Review of Systems General / Constitutional: No: Fever, Chills Eyes: No: Diploplia, Blurred Vision HENT: Positive: Lightheadedness, No: Headaches, Vertigo Cardiovascular: No: Chest Pain or Discomfort, Palpitations Respiratory: Positive: Cough, Shortness of Breath Gastrointestinal: No: Vomiting, Diarrhea Genitourinary: No: Urgency, Frequency Musculoskeletal: No: Myalgias, Arthralgias Neurologic: Positive: Weakness Endocrine: No: Heat Intolerance, Cold Intolerance Hematologic/Lymphatic: No: Easy Bruising Physical Exam Narrative GENERAL: Well-developed male SKIN: Focused skin assessment warm/dry. HEAD: Atraumatic. Normocephalic. EYES: Pupils equal and round. No scleral icterus. No injection or drainage. ENT: No nasal bleeding or discharge. Mucous membranes pink and moist. NECK: Trachea midline. No JVD. CARDIOVASCULAR: Irregular rate and rhythm. No murmur appreciated. RESPIRATORY: No accessory muscle use. There are a few basilar rales. Breath sounds equal bilaterally. GASTROINTESTINAL: Abdomen soft, non-tender, nondistended. Hepatic and splenic margins not palpable. MUSCULOSKELETAL: No obvious deformities. No clubbing. No cyanosis. No edema. NEUROLOGICAL: Awake and alert. No obvious cranial nerve deficits. Motor grossly within normal limits. Normal speech. PSYCHIATRIC: Appropriate mood and affect; insight and judgment normal. Data Data Last Documented VS Vital Signs Date Time Temp Pulse Resp B/P (MAP) Pulse Ox O2 Delivery O2 Flow Rate FiO2 05/31/17 11:02 62 16 113/60 (77) 67 16 105/64 (78) 68 16 94/61 (72) 05/31/17 09:55 96 Room Air 05/31/17 09:44 97.9 Orders Orders Electrocardiogram (05/31/17 10:18) Complete Blood Count With Diff (05/31/17 10:18) Comprehensive Metabolic Panel (05/31/17 10:18) Troponin I (05/31/17 10:18) B-Type Natriuretic Peptide (05/31/17 10:18) Urinalysis - C+S If Indicated (05/31/17 10:18) Magnesium (Mg) (05/31/17 10:18) Influenzae A/B Antigen (05/31/17 10:18) Chest, Single Ap (05/31/17 10:18) Orthostatic Vital Signs (05/31/17 10:18) Sodium Chlor 0.9% 1000 Ml Inj (Ns 1000 M (05/31/17 10:30) Lidocaine 2% Jelly (Xylocaine 2% Jelly) (05/31/17 13:00) Cath For Specimen (05/31/17 12:50) Labs Laboratory Tests Test 05/31/17 10:32 05/31/17 13:08 White Blood Count 3.1 TH/MM3 Red Blood Count 3.82 MIL/MM3 Hemoglobin 12.4 GM/DL Hematocrit 39.7 % Mean Corpuscular Volume 103.9 FL Mean Corpuscular Hemoglobin 32.5 PG Mean Corpuscular Hemoglobin Concent 31.3 % Red Cell Distribution Width 16.5 % Platelet Count 260 TH/MM3 Mean Platelet Volume 8.7 FL Neutrophils (%) (Auto) 72.6 % Lymphocytes (%) (Auto) 15.4 % Monocytes (%) (Auto) 11.5 % Eosinophils (%) (Auto) 0.3 % Basophils (%) (Auto) 0.2 % Neutrophils # (Auto) 2.2 TH/MM3 Lymphocytes # (Auto) 0.5 TH/MM3 Monocytes # (Auto) 0.4 TH/MM3 Eosinophils # (Auto) 0.0 TH/MM3 Basophils # (Auto) 0.0 TH/MM3 CBC Comment DIFF FINAL Differential Comment Blood Urea Nitrogen 13 MG/DL Creatinine 0.79 MG/DL Random Glucose 108 MG/DL Total Protein 6.3 GM/DL Albumin 2.9 GM/DL Calcium Level 8.1 MG/DL Magnesium Level 1.9 MG/DL Alkaline Phosphatase 75 U/L Aspartate Amino Transf (AST/SGOT) 49 U/L Alanine Aminotransferase (ALT/SGPT) 38 U/L Total Bilirubin 0.7 MG/DL Sodium Level 137 MEQ/L Potassium Level 4.2 MEQ/L Chloride Level 103 MEQ/L Carbon Dioxide Level 24.8 MEQ/L Anion Gap 9 MEQ/L Estimat Glomerular Filtration Rate 93 ML/MIN Troponin I 0.03 NG/ML B-Type Natriuretic Peptide 552 PG/ML Urine Color YELLOW Urine Turbidity CLEAR Urine pH 6.0 Urine Specific [place] 1.017 Urine Protein 30 mg/dL Urine Glucose (UA) NEG mg/dL Urine Ketones 15 mg/dL Urine Occult Blood NEG Urine Nitrite NEG Urine Bilirubin NEG Urine Leukocyte Esterase NEG Urine Squamous Epithelial Cells 0-5 /hpf Microscopic Urinalysis Comment CULT NOT INDICATED MDM Medical Decision Making Medical Screen Exam Complete: Yes Emergency Medical Condition: Yes Medical Record Reviewed: Yes Differential Diagnosis Differential includes dehydration, CHF, influenza, viral syndrome Narrative Course White count is 3000. Chest x-rays read as negative. His BNP is slightly elevated at 500. Urine is negative for infection. Tests for influenza is negative. I suspect the patient is a viral syndrome possibly influenza. He is stable for discharge. I will not prescribe any antibiotics Diagnosis Primary Impression: Viral syndrome Disposition: 01 DISCHARGE HOME Condition: Stable Cecilio Davis MD May 31, 2017 10:18
[2017-05-31] MEDS ORDERED: SODIUM CHLOR 0.9% 1000 ML INJ 1,000 ML IV SCH (10:30)
[2017-05-31 10:52] LABS: AUTOMATED NEUTROPHIL # 2.2 TH/MM3 (1.8-7.7); BASOPHIL % 0.2 % (0.0-2.0); EOSINOPHIL % 0.3 % (0.0-4.0); HEMATOCRIT 39.7 % (39.0-51.0); HEMOGLOBIN 12.4 GM/DL (13.0-17.0); LYMPH % 15.4 % (9.0-44.0); LYMPHOCYTE # 0.5 TH/MM3 (1.0-4.8); MEAN CELL VOLUME 103.9 FL (80.0-100.0); MEAN CORPUSCULAR HEMOGLOBIN 32.5 PG (27.0-34.0); MEAN CORPUSCULAR HGB CONC 31.3 % (32.0-36.0); MEAN PLATELET VOLUME 8.7 FL (7.0-11.0); MONO % 11.5 % (0.0-8.0); MONOCYTE # 0.4 TH/MM3 (0-0.9); NEUT % 72.6 % (16.0-70.0); PLATELET COUNT 260 TH/MM3 (150-450); RED BLOOD COUNT 3.82 MIL/MM3 (4.50-5.90); RED CELL DISTRIBUTION WIDTH 16.5 % (11.6-17.2); WHITE BLOOD COUNT 3.1 TH/MM3 (4.0-11.0)
--- NOTE | 2017-05-31 10:57 | RADRPT ---
EXAM DATE/TIME: 05/31/2017 10:42 [facility] COMPARISON: CHEST SINGLE AP, April 21, 2017, 19:18. INDICATIONS : Cough, short of breath, weakness. MEDICAL HISTORY : Cardiovascular disease. Hypertension SURGICAL HISTORY : CABG. ENCOUNTER: Initial ACUITY: 1 week PAIN SCORE: 0/10 LOCATION: Bilateral chest FINDINGS: A single view of the chest demonstrates the lungs to be symmetrically aerated without evidence of mas s, infiltrate or effusion. Mild compensated cardiomegaly Sternal wires from previous bypass are note d.. Osseous structures are intact. CONCLUSION: Previous bypass, mild compensated cardiomegaly stable from comparison Luiz Al MD FACR on May 31, 2017 at 10:49 Board Certified Radiologist. This report was verified electronically.
[2017-05-31 11:02] VITALS: BP_SYST 105; BP_SYST 113; BP_SYST 94; BP_DIAS 60; BP_DIAS 61; BP_DIAS 64; RESP 16
[2017-05-31 11:18] LABS: CHLORIDE 103 MEQ/L (98-107); SODIUM (NA) 137 MEQ/L (136-145)
[2017-05-31 11:22] LABS: ALBUMIN 2.9 GM/DL (3.4-5.0); BICARBONATE 24.8 MEQ/L (21.0-32.0); BLOOD UREA NITROGEN 13 MG/DL (7-18); CALCIUM 8.1 MG/DL (8.5-10.1); GLUCOSE,RANDOM 108 MG/DL (74-106); MAGNESIUM 1.9 MG/DL (1.5-2.5)
[2017-05-31 11:25] LABS: ALT (GPT) 38 U/L (12-78); AST (GOT) 49 U/L (15-37); CREATININE 0.79 MG/DL (0.60-1.30); GLOMERULAR FILTRATION RATE 93 ML/MIN (>89)
[2017-05-31 11:27] LABS: TOTAL BILIRUBIN ADULT 0.7 MG/DL (0.2-1.0); TOTAL PROTEIN 6.3 GM/DL (6.4-8.2)
[2017-05-31 11:28] LABS: ALKALINE PHOSPHATASE 75 U/L (45-117)
[2017-05-31 11:30] LABS: TROPONIN I 0.03 NG/ML (0.02-0.05)
[2017-05-31] MEDS ORDERED: LIDOCAINE HCL 2% JELLY 5 ML SYRINGE TOPICAL ONE (13:00)
[2017-05-31 13:13] LABS: BILIRUBIN, URINE NEG (NEG); BLOOD, URINE NEG (NEG); GLUCOSE,URINE NEG (NEG); KETONE, URINE 15 mg/dL (NEG); NITRITE,URINE NEG (NEG); URINE LEUKOCYTE ESTERASE NEG (NEG)
[2017-05-31 13:20] LABS: URINE COLOR YELLOW (YELLW/STRAW)
[2017-05-31 13:21] LABS: SQUAMOUS EPITHELIAL CELL URINE 0-5 /hpf (0-5)
[2017-05-31 13:38] VITALS: BP 142/63
--- NOTE | 2017-06-01 16:09 | EKG ---
Date Performed: 05/31/2017 Time Performed: 09:56:19 PTAGE: 86 years EKG: ATRIAL FIBRILLATION MODERATE INTRAVENTRICULAR CONDUCTION DELAY NONSPECIFIC ST & T-WAVE ABNO RMALITY ABNORMAL ECG PREVIOUS TRACING : 04/02/2017 06.03 Atrial fibrillation appears to be new since prior tracing. Clinical correlation is recommended. DOCTOR: Gonsalo Herman Interpretating Date/Time 06/01/2017 16:07:44
== END 2017-05-31 13:40 | disposition home or self-care (01) ==
LOC: PHED 09:37
DX: B34.9 Viral infection, unspecified (principal); R06.02 Shortness of breath; E78.00 Pure hypercholesterolemia, unspecified; I10 Essential (primary) hypertension; I48.91 Unspecified atrial fibrillation; R94.31 Abnormal electrocardiogram [ECG] [EKG]; K21.9 Gastro-esophageal reflux disease without esophagitis
CPT/HCPCS: 71045; 80053; 81001; 83735; 83880; 84484; 85025; 87804; 93005; 96360; 96361; 99285; J7030

== ENCOUNTER 2017-06-16 13:18 | Emergency (ER) | payer OTHER ==
[2017-06-16 14:22] LABS: AUTOMATED NEUTROPHIL # 6.8 TH/MM3 (1.8-7.7); BASOPHIL % 0.3 % (0.0-2.0); CHLORIDE 106 MEQ/L (98-107); EOSINOPHIL # 0.1 TH/MM3 (0-0.4); EOSINOPHIL % 0.8 % (0.0-4.0); HEMATOCRIT 38.1 % (39.0-51.0); HEMO FLAGS DIFF FINAL; HEMOGLOBIN 12.1 GM/DL (13.0-17.0); LYMPH % 12.2 % (9.0-44.0); MEAN CELL VOLUME 103.7 FL (80.0-100.0); MEAN CORPUSCULAR HEMOGLOBIN 32.8 PG (27.0-34.0); MEAN CORPUSCULAR HGB CONC 31.7 % (32.0-36.0); MEAN PLATELET VOLUME 9.1 FL (7.0-11.0); MONO % 7.5 % (0.0-8.0); MONOCYTE # 0.6 TH/MM3 (0-0.9); NEUT % 79.2 % (16.0-70.0); PLATELET COUNT 401 TH/MM3 (150-450); POTASSIUM 4.9 MEQ/L (3.5-5.1); RED BLOOD COUNT 3.67 MIL/MM3 (4.50-5.90); RED CELL DISTRIBUTION WIDTH 15.6 % (11.6-17.2); SODIUM (NA) 139 MEQ/L (136-145); WHITE BLOOD COUNT 8.5 TH/MM3 (4.0-11.0)
[2017-06-16 14:24] LABS: CALCIUM 8.8 MG/DL (8.5-10.1)
[2017-06-16 14:25] LABS: ANION GAP 7 MEQ/L (5-15); BICARBONATE 25.6 MEQ/L (21.0-32.0); BLOOD UREA NITROGEN 20 MG/DL (7-18); GLUCOSE,RANDOM 106 MG/DL (74-106)
[2017-06-16 14:28] LABS: GLOMERULAR FILTRATION RATE 64 ML/MIN (>89)
== END 2017-06-16 15:13 | disposition home or self-care (01) ==
LOC: PHED 13:18
DX: D47.3 Essential (hemorrhagic) thrombocythemia (principal); I48.91 Unspecified atrial fibrillation; I10 Essential (primary) hypertension; Z79.01 Long term (current) use of anticoagulants
CPT/HCPCS: 80048; 85025; 99283